=== PATIENT | male | born 1960 ===

== ENCOUNTER → 2020-06-05 10:02 | Outpatient (BNVA) | payer MEDICAID, SELFPAY | PROVIDERS: PCP Nurse Practitioner Family; Referring Provider Nurse Practitioner Family; Visit Provider Orthopaedic Surgery | DX: M54.12 Radiculopathy, cervical region (principal); M62.81 Muscle weakness (generalized) | CPT/HCPCS: 99214 ==

== ENCOUNTER 2020-09-22 13:47 | Outpatient (REF) | payer MEDICAID, SELFPAY | END 2020-09-22 13:48 | disposition home or self-care (01) | LOC: HO.LAB 13:47 | PROVIDERS: Visit Provider Internal Medicine | DX: Z20.822 Contact with and (suspected) exposure to COVID-19 (principal) | CPT/HCPCS: 36415; C9803; U0003; U0005 ==

== ENCOUNTER 2020-12-30 13:04 | Outpatient (REF) | payer MEDICAID, SELFPAY ==
--- NOTE | ~2020-12-30 | US_ITS ---
EXAMINATION: US ABDOMEN LIMITED CLINICAL INFORMATION: Mid back nontender soft tissue mass. COMPARISON: None TECHNIQUE: Real-time imaging of right back was performed. FINDINGS: There is a hypoechoic lesion in the right posterior back. The patient complains of mass. It measures 3.6 x 1.0 x 3.3 cm and most likely is a lipoma. US/US abdomen limited IMPRESSION: Likely lipoma in the right lower medial back.
== END 2020-12-30 13:05 | disposition home or self-care (01) ==
LOC: HO.US 13:04
PROVIDERS: PCP Nurse Practitioner Primary Care; Visit Provider Nurse Practitioner Primary Care
DX: R22.2 Localized swelling, mass and lump, trunk (principal)
CPT/HCPCS: 76705

== ENCOUNTER → 2021-02-26 08:56 | Outpatient (BNVA) | payer MEDICAID, SELFPAY | PROVIDERS: PCP Nurse Practitioner Primary Care; Referring Provider Nurse Practitioner Primary Care; Visit Provider Surgery | DX: D17.1 Benign lipomatous neoplasm of skin and subcutaneous tissue of trunk (principal); M54.12 Radiculopathy, cervical region; Z79.84 Long term (current) use of oral hypoglycemic drugs; Z79.899 Other long term (current) drug therapy | CPT/HCPCS: 99202 ==

== ENCOUNTER 2021-09-28 16:49 | Emergency (ER) | payer MEDICAID, SELFPAY ==
--- NOTE | ~2021-09-28 | XR_ITS ---
EXAMINATION: XR LUMBOSACRAL SPINE CLINICAL INFORMATION: Pain without trauma COMPARISON: CT abdomen pelvis 10/05/2019 TECHNIQUE: Three views of the lumbosacral spine. FINDINGS: Degenerative changes are noted in the lower thoracic spine. The lumbar vertebral bodies and posterior elements are unremarkable. The disc spaces are preserved and the vertebral alignment is normal. The paraspinal soft tissues are normal. XR/XR lumbar spine 2-3V IMPRESSION: Degenerative changes in the lower thoracic spine. The lumbar spine appears unremarkable.
--- NOTE | ~2021-09-28 | MR_ITS ---
EXAMINATION: MR LUMBAR SPINE WITHOUT CONTRAST CLINICAL INFORMATION: Right lower extremity weakness. Foot drop. Evaluate for cauda equina. COMPARISON: Lumbar spine radiographs 09/28/2019. CT abdomen and pelvis 10/05/2019. TECHNIQUE: MRI of the lumbar spine was obtained using routine sequences without contrast. FINDINGS: Alignment is normal. Vertebral body heights are preserved. No acute bone marrow signal changes. There is disc desiccation at L4-L5 and L5-S1 without substantial loss of intervertebral disc height at either of these 2 levels. The tip of the conus medullaris is located at L2. No mass effect on the conus. Visualized distal cord signal intensity is normal. At L1-L2 there is a slightly bulging disc. No canal stenosis. No mass effect on the traversing or foraminal nerve roots. At L2-L3 there is a slightly bulging disc. No canal stenosis. No mass effect on the traversing or foraminal nerve roots. At L3-L4 there is a slightly bulging disc. No canal stenosis. No mass effect on the traversing or foraminal nerve roots. At L4-L5 there is a broad shallow central protrusion superimposed upon a bulging disc. Bilateral facet degenerative change. Moderate canal stenosis. Subarticular zone narrowing causes displacement and possible compression of both traversing L5 nerve roots. Mild compression of both L4 foraminal nerve roots. At L5-S1 there is an asymmetrically bulging disc to the right. Advanced bilateral facet degenerative change. Mild canal stenosis. Asymmetric narrowing of the right subarticular zone causes displacement and possible compression of the right traversing S1 nerve roots. Moderate compression of both L5 foraminal nerve roots, greater on the right. Limited visualization of the retroperitoneal anatomy reveals no abnormal finding. Psoas and paraspinal muscle groups are symmetric. MR/MR lumbar spine wo con IMPRESSION: There is multilevel degenerative spondylosis primarily involving the lower lumbar spine. A broad shallow central protrusion in conjunction with facet degenerative change at L4-L5 causes moderate canal stenosis. Otherwise no canal compromise. There is mass effect on the traversing and foraminal segments of the nerve roots at L4-L5 and L5-S1 as described above.
[2021-09-28 16:56] VITALS: BP 141/85; PULSE 79; RESP 18; TEMP 36.7; O2SAT 98; BMI 27.3
--- NOTE | 2021-09-28 18:15 | ED.EXTPRO ---
HPI - Extremity Problem General Chief complaint: Extremity Problem Stated complaint: pain x 2days back and leg Time Seen by Provider: 09/28/21 17:51 Source: patient, family and ophthalmic technician Mode of arrival: wheelchair Limitations: language barrier History of Present Illness HPI Narrative: 61-year-old male here with reports of low back pain with radiation down the right leg for the last 2 days. Patient reports he woke with the pain. He denies any injury or trauma. He tells me the pain radiates from the back down the entire leg with associated numbness and tingling and weakness. He denies any bowel or bladder incontinence. He denies any saddle anesthesia. He denies any fevers or chills. Patient has history of diabetes and is on oral medication for this. He has no history of HIV, hepatitis, IV drug abuse. Related Data Home Medications Medication Instructions Recorded Confirmed blood-glucose meter (FreeStyle #1 ea 06/04/20 [place] [employer]) glipizide 10 mg tablet 10 mg PO DAILY 06/04/20 lancets [[employer] Lancets] MISCELLANEOUS 06/04/20 meloxicam 15 mg tablet 15 mg PO DAILY 06/04/20 metformin 500 mg tablet 500 mg PO BID 06/04/20 sitagliptin 100 mg tablet (Januvia) 100 mg PO DAILY 06/04/20 cortisone 50 mg/mL intramuscular mg IM 02/26/21 suspension Allergies Allergy/AdvReac Type Severity Reaction Status Date / Time No Known Allergies Allergy Verified 09/28/21 17:48 [No Known Allergies*] Review of Systems Review of Systems: Yes all other systems are reviewed and are negative Constitutional: Constitutional: Reports no additional constitutional complaints, Denies body ache(s), Denies chills, Denies fever(s), Denies headache(s) and Reports weakness Eyes: Eyes: Reports no additional eye complaints and Denies change in vision ENT: Reports system reviewed and no additional complaints, except as documented, Denies dizziness, Denies headache(s), Denies nasal congestion, Denies nasal discharge and Denies neck pain Cardiovascular: Cardiovascular: Reports no additional cardiovascular complaints, Denies chest pain, Denies leg edema and Denies dyspnea Respiratory: Respiratory: Reports no additional respiratory complaints, Denies cough and Denies dyspnea Gastrointestinal: Gastrointestinal: Reports no additional gastrointestinal complaints, Denies abdominal pain, Denies diarrhea, Denies nausea and Denies vomiting Genitourinary: Genitourinary: Denies urinary incontinence Musculoskeletal: Musculoskeletal: Reports no additional musculoskeletal complaints, Reports back pain, Denies arthralgias, Denies joint swelling, Denies neck pain, Reports numbness and Reports tingling Integumentary/Breasts: Skin/Breast: Reports system reviewed and no additional complaints, except as docu and Denies rash Neurologic: Reports system reviewed and no additional complaints, except as documented, Denies Abnormal speech present, Denies dizziness, Denies headache(s), Reports numbness, Reports tingling and Reports weakness PMFSH Past Medical History Attestation statement: The following information was validated with the patient. Source: old records reviewed and nursing notes reviewed Medical History Cervical radiculopathy Lipoma of back Surgical History History of hernia repair S/P excision of lipoma Family History Family History Father Diabetes Mother Hyperlipidemia Social History Social History Advance Directives: No Advance Directives Information Provided: Yes Current occupational status: unemployed Current occupation: Right Handed Physical Exam Vital Signs: Vital Signs: Last Vital Signs Temp 98.0 F 09/28/21 16:56 Pulse 79 09/28/21 16:56 Resp 18 09/28/21 16:56 BP 141/85 H 09/28/21 16:56 Pulse Ox 98 09/28/21 16:56 BMI result Body Mass Index 27.3 Const: General: cooperative, healthy appearing, comfortable and no acute distress Orientation/consciousness: patient oriented x3 Limitations: no limitations HENMT: Head: Yes normal to inspection Ears: hearing grossly normal bilaterally General nose exam: Normal external nose present Face and sinus: Yes normal facial exam Mouth: Normal oral and palatal mucosa present Throat: Yes posterior oropharynx normal Eyes: General: appearance normal, both eyes and all related structures Pupils: Equal, round and reactive pupils present Neck: Neck: Yes normal visual inspection Chest: Chest palpation & inspection: normal inspection of the chest Resp: Effort & Inspection: normal respiratory effort Auscultation: clear to auscultation bilaterally Cardio: Rate: regular rate Rhythm: regular rhythm Peripheral pulses: Peripheral pulses 2+ throughout GI: Inspection: Yes normal to inspection Palpation (GI): Soft to palpation and nontender Auscultation: normal bowel sounds Back/Spine/Pelvis: Other: Tenderness to the lumbar spine with no step off or deformities. Tenderness to the lumbar soft tissue on the right side and over the posterior SI joint with compression. There is also tenderness in the right buttocks. Patient unable to perform a straight leg raise on the right side Thoracic/Lumbar Spine: thoracic and lumbar spine normal to inspection Skin: General skin exam: no rashes or lesions noted Neuro: Other: Normal strength the left lower extremity Patient unable to lift the right leg. He is able to perform plantar fell action but is having difficulty with dorsiflexion. He tells me the sensation is intact but diminished in the right leg. General: patient oriented x3, normal sensation to monofilament and Unable to assess gait Cranial nerves: Yes CN's II-XII intact bilaterally, Yes Equal, round and reactive pupils present, Yes Bilaterally intact EOM present, Yes Nystagmus not present, Yes Normal facial strength present and Yes Midline tongue present Cognition (Neuro): normal cognition Speech: No Abnormal speech present Gait exam (Neuro): Unable to assess gait Extrem: General: Yes normal to inspection Course Course Course Narrative: 61-year-old male with a history of [id number] diabetes here with reports of 2 days of atraumatic lower back pain with radiation down the right leg with associated numbness/tingling/weakness of the leg. Patient arrives in a wheelchair as he tells me he is unable to ambulate at this time. He is unable to perform a straight leg raise with limited dorsiflexion on the right foot. Plantar flexion is normal. Sensation is normal. Patient also reports pain in right leg. No appreciable swelling, redness. Palpable distal pulses are noted. Patient is in a considerable amount of pain. Will provide analgesia. D/t motor loss, sensation change reported, severe pain will try to obtain MRI. 184-Sign out to Pavel [facility] pending MRI results, re-evaluation. MDM - Extremity (Nontraumatic) MDM Narrative Medical decision making narrative: Low concern for epidural abscess with no history of immunocompromise state, no fever, no IVDA Consider cauda equina Lumbar radiculopathy Medical Records Attestation: I reviewed the patient's medical records. Lab Data Attestation: I reviewed the patient's lab results. Discharge Plan Discharge Clinical Impression: Back pain Patient Disposition: Still a Patient Prescriptions: No Action metformin 500 mg tablet 500 mg PO BID 0RF Januvia 100 mg tablet 100 mg PO DAILY 0RF glipizide 10 mg tablet 10 mg PO DAILY 0RF lancets miscellaneous 0RF (DME) blood-glucose meter [[employer] [place] [employer]] Kit See Rx Instructions .ROUTE .MEDSUPPLY Qty: 1 0RF Rx Instructions: As directed meloxicam 15 mg tablet 15 mg PO DAILY 0RF cortisone 50 mg/mL suspension IM 0RF
[2021-09-28] MEDS: Ketorolac Tromethamine 60 MG/2 ML VIAL IM (18:35)
[2021-09-28] MEDS: diazePAM 5 MG TABLET PO (18:35)
[2021-09-28 20:16] VITALS: BP 121/72; PULSE 72; RESP 18; TEMP 36.7; O2SAT 97
[2021-09-28 22:29] VITALS: BP 141/84; PULSE 58; RESP 18; TEMP 36.6; O2SAT 99
== END 2021-09-28 23:06 | disposition home or self-care (01) ==
PROVIDERS: Emergency Provider Emergency Medicine
DX: M51.16 Intervertebral disc disorders with radiculopathy, lumbar region (principal); E11.9 Type 2 diabetes mellitus without complications
CPT/HCPCS: 72100; 72148; 96372; 99284; 99285; J1885

== ENCOUNTER 2021-11-19 10:33 | Outpatient (REF) | payer MEDICAID, SELFPAY ==
--- NOTE | ~2021-11-19 | XR_ITS ---
EXAMINATION: XR RIBS, LEFT CLINICAL INFORMATION: Pleurodynia COMPARISON: 10/18/2016 TECHNIQUE: 3 views of the left ribs were obtained. PA view of the chest. FINDINGS: Lungs are well expanded. Calcified nodular density at the periphery of the right midlung, unchanged from prior. No consolidation, pneumothorax, or pleural effusion. The cardiomediastinal silhouette and pulmonary vasculature are normal. Osseous structures are unremarkable. Ribs are intact. No fractures are identified. XR/XR ribs LT min 3V w CXR1V IMPRESSION: No acute pulmonary finding. No focal left rib abnormality.
== END 2021-11-19 10:34 | disposition home or self-care (01) ==
LOC: HO.XRAY 10:33
PROVIDERS: Absent Provider Nurse Practitioner Primary Care; PCP Nurse Practitioner Primary Care; Visit Provider Family Medicine
DX: R07.81 Pleurodynia (principal)
CPT/HCPCS: 71101

== ENCOUNTER 2022-06-07 13:56 | Emergency (ER) | payer MEDICAID, SELFPAY ==
--- NOTE | ~2022-06-07 | CT_ITS ---
EXAMINATION: CT HEAD WITHOUT CONTRAST CLINICAL INFORMATION: Subacute neural changes. Left upper extremity numbness. Buccal weakness COMPARISON: None. TECHNIQUE: Contiguous axial imaging was performed from the skull base to vertex without intravenous administration of contrast. Coronal and sagittal reformatted images are performed at the CT scanner. [This CT examination was performed using dose optimization techniques as appropriate, variously including the following: *Automated exposure control *Adjustment of mA and/or kV according to patient size (this includes techniques or standardized protocols for targeted exams where dose is matched to indication/reason for exam; i.e. extremities or head) *Use of iterative reconstruction technique] DLP: 739 mGy-cm. FINDINGS: There is no evidence of acute intracranial hemorrhage or territorial infarction. No abnormal mass-effect or midline shift is seen. Lora to white matter differentiation is well preserved. No extra-axial fluid collections are identified. The ventricles are normal in size. There is no abnormal attenuation within the brain parenchyma. There is no osseous abnormality. The mastoid air cells and visualized portions of the paranasal sinuses are well-aerated. CT/CT head/brain wo IV con IMPRESSION: No acute intracranial pathology.
--- NOTE | ~2022-06-07 | XR_ITS ---
EXAMINATION: XR CHEST CLINICAL INFORMATION: Chest pain COMPARISON: 11/19/2021 TECHNIQUE: Frontal view of the chest was obtained. FINDINGS: Aside from mildly hypoinflated lungs, no significant abnormality is noted involving the heart, lungs, mediastinum, bony thorax or soft tissues. XR/XR chest 1V IMPRESSION: Unremarkable examination.
--- NOTE | 2022-06-07 14:06 | ECG_ITS ---
Test Reason : CHEST PAIN Blood Pressure : / mmHG Vent. Rate : 071 BPM Atrial Rate : 071 BPM P-R Int : 168 ms QRS Dur : 080 ms QT Int : 370 ms P-R-T Axes : 055 -08 -03 degrees QTc Int : 402 ms Normal sinus rhythm Nonspecific T wave abnormality Abnormal ECG When compared with ECG of 18-OCT-2016 10:51, No significant change was found Referred By: Generic ED Physician Electronically Signed By:ELSY MATTA MD
[2022-06-07 14:46] VITALS: BP 144/78; PULSE 74; RESP 16; TEMP 36; O2SAT 98; BMI 29.2
[2022-06-07 14:56] LABS: MANUAL DIFF FLAG NO
[2022-06-07 14:59] LABS: Basophils Absolute Auto 0.1 X10*3/uL (0.0-0.2); Basophils Percent Auto 0.8 % (0-2); Eosinophils Absolute Auto 0.1 X10*3/uL (0.0-0.4); Eosinophils Percent Auto 1.9 % (0-4); Hematocrit 42.7 % (42.0-52.0); Hemoglobin 14.5 g/dl (14.0-18.0); Imm Gran Abs Auto 0.01 X10*3/uL (0.00-0.03); Imm Gran Pct Auto 0.2 % (0.0-0.4); Lymphocytes Absolute Auto 2.3 X10*3/uL (1.2-4.9); Lymphocytes Percent Auto 36.5 % (20-40); Mean Corpuscular Hemoglobin 28.5 pg (27.0-33.0); Mean Corpuscular Volume 84.1 fL (80.0-98.0); Mean Platelet Volume 11.2 fL (9.4-12.4); Monocytes Absolute Auto 0.6 X10*3/uL (0.1-1.2); Monocytes Percent Auto 9.4 % (2-11); Neutrophils Absolute Auto 3.2 x10*3/uL (2.0-8.3); Neutrophils Percent Auto 51.2 % (45-73); Platelet Count 209 X10*3/uL (160-400); Red Blood Count 5.08 X10*6/uL (4.60-5.80); Red Cell Distribution Width 12.4 % (11.0-16.0); White Blood Count 6.3 X10*3/uL (4.8-10.8)
[2022-06-07 15:16] LABS: Anion Gap 16 (12-20); Blood Urea Nitrogen 14 mg/dL (9-16); Calcium 9.6 mg/dL (8.4-10.2); Carbon Dioxide 24 mmol/L (22-29); Chloride 100 mmol/L (96-108); Creatinine Clr Calc Pharmacy 49.8; Estimated Glomerular Filt Rate 44; Glucose Random 413 mg/dL (60-115); Potassium 4.1 mmol/L (3.3-5.1); Sodium 136 mmol/L (135-145)
[2022-06-07 15:19] LABS: COVID-19 Test Negative (Negative); IDNOW Serial# 55D5AD1C; Troponin-I High Sensitivity 14.9 ng/L (<3.5-35.0)
--- NOTE | 2022-06-07 19:45 | ECG_ITS ---
Test Reason : CHEST PAIN Blood Pressure : / mmHG Vent. Rate : 057 BPM Atrial Rate : 057 BPM P-R Int : 184 ms QRS Dur : 082 ms QT Int : 406 ms P-R-T Axes : 020 -10 -13 degrees QTc Int : 395 ms Sinus bradycardia Nonspecific T wave abnormality Abnormal ECG When compared with ECG of 07-JUN-2022 14:44, No significant change was found Referred By: Rebecca Ko Electronically Signed By:ELSY MATTA MD
[2022-06-07 19:46] VITALS: BP 157/80; PULSE 59; RESP 18; O2SAT 99
[2022-06-07 19:50] LABS: Glucose, Whole Blood 239 mg/dL (60-115)
[2022-06-07 20:26] LABS: Troponin-I High Sensitivity 16.8 ng/L (<3.5-35.0)
--- NOTE | 2022-06-07 20:26 | ED.CHESTPAIN ---
HPI - Chest Pain General Chief Complaint: Chest Pain Stated Complaint: CHEST PAIN Time Seen by Provider: 06/07/22 20:00 Source: patient, family and deaf interpreter Mode of arrival: ambulatory History of Present Illness HPI narrative: 62-year-old male with history of diabetes presents with last known well 6 hours ago and states that he began experiencing numbness in his left upper extremity that was also associated with pain and he says that it extends all the way up his left upper extremity into the side of his neck. He denies any fever or chills denies any shortness of breath but states this is also been associated with left-sided chest pain that is burning in nature. Related Data Home Medications Medication Instructions Recorded Confirmed blood-glucose meter (FreeStyle #1 ea 06/04/20 [place] Lite kit) glipizide 10 mg tablet 10 mg PO DAILY 06/04/20 lancets [TRUEplus Lancets] miscellaneous 06/04/20 meloxicam 15 mg tablet 15 mg PO DAILY 06/04/20 metformin 500 mg tablet 500 mg PO BID 06/04/20 sitagliptin 100 mg tablet (Januvia) 100 mg PO DAILY 06/04/20 cortisone 50 mg/mL intramuscular mg IM 02/26/21 suspension Previous Rx's Medication Instructions Recorded oxycodone-acetaminophen 5 mg-325 1 tab PO TID PRN pain #9 tabs 09/28/21 mg tablet (Percocet) prednisone 20 mg tablet 40 mg PO DAILY 5 days #10 tabs 09/28/21 Allergies Allergy/AdvReac Type Severity Reaction Status Date / Time No Known Allergies Allergy Verified 09/28/21 17:48 [No Known Allergies*] Review of Systems Review of Systems: Pertinent positives and negatives as stated in HPI 10 point review of systems is otherwise negative. FORMERLY [facility], [facility] Past Medical History Source: nursing notes reviewed Medical History Cervical radiculopathy Lipoma of back Surgical History History of hernia repair S/P excision of lipoma Family History Family History Father Diabetes Mother Hyperlipidemia Social History Social History Advance Directives: No Current occupational status: unemployed Current occupation: Right Handed Physical Exam Vital Signs: Vital Signs: Last Vital Signs Temp 97.8 F 06/07/22 21:46 Pulse 55 06/07/22 21:46 Resp 15 06/07/22 21:46 BP 140/79 H 06/07/22 21:46 Pulse Ox 99 06/07/22 21:46 O2 Del Method 06/07/22 21:46 BMI result Body Mass Index 29.2 VITAL SIGNS: Reviewed. GENERAL: Well developed, well nourished, in no acute distress. HEAD: Normocephalic/atraumatic EYES: PERRLA, EOMI EARS: Ext canals without abnormality OROPHARYNX: no oral lesions noted, posterior pharynx clear LUNGS: Normal breath sounds. No adventitious sounds or accessory muscle use. SpO2<99> CARDIOVASCULAR: Regular rate and rhythm without noted murmurs ABDOMEN: Soft, non-tender, non-distended with bowel sounds. MUSCULOSKELETAL: No tenderness, deformities, or effusions noted on gross inspection. EXTREMITIES: No cyanosis, clubbing or edema. SKIN: Inspection of the skin reveals no rashes NEUROLOGIC: Alert and oriented x 4. Strength grossly intact x 4, on assessment of facial symmetry there is a difference in left/right buccal and smile appears off, cranial nerves 2-12 are grossly intact, however sensation is less on the left when compared to the right. Course Course Course Narrative: 62-year-old male with history and clinical presentation suggestive of neuro deficits that are out of the window for tPA at this time. Although patient does carry the diagnosis of cervical radiculopathy findings on left face are concerning, patient is not hypertensive but was noted to be initially hyperglycemic. Otherwise there are no gross motor/speech deficits. Review of all investigations to include CT imaging negative for acute findings other than worsening kidney function. Unable to do CT angio because of patient's creatinine level. Review of all investigations shows serial detectable but essentially flat troponins without acute changes on serial EKGs and patient received combination analgesics and on re-evaluations states that he is still feeling the burning sensation. The presentation and care your of the pain is low clinical suspicion for cardiac in nature and the associated neuropathic symptoms in the left upper extremity most consistent with his underlying radiculopathy. All results and findings discussed with him at bedside and he is otherwise discharged home in stable condition. MDM - Chest Pain Lab Data Result diagrams: 06/07/22 14:51 06/07/22 14:51 Labs: Lab Results 06/07/22 06/07/22 06/07/22 Range/Units 14:51 14:51 14:51 WBC 6.3 (4.8-10.8) X10*3/uL RBC 5.08 (4.60-5.80) X10*6/uL Hgb 14.5 (14.0-18.0) g/dl Hct 42.7 (42.0-52.0) % MCV 84.1 (80.0-98.0) fL MCH 28.5 (27.0-33.0) pg MCHC 34.0 (31.0-36.0) g/dl RDW 12.4 (11.0-16.0) % Plt Count 209 (160-400) X10*3/uL MPV 11.2 (9.4-12.4) fL Immature Gran % (Auto) 0.2 (0.0-0.4) % Neut % (Auto) 51.2 (45-73) % Lymph % (Auto) 36.5 (20-40) % [place] % (Auto) 9.4 (2-11) % Eos % (Auto) 1.9 (0-4) % Baso % (Auto) 0.8 (0-2) % Lymph # (Auto) 2.3 (1.2-4.9) X10*3/uL [place] # (Auto) 0.6 (0.1-1.2) X10*3/uL Eos # (Auto) 0.1 (0.0-0.4) X10*3/uL Baso # (Auto) 0.1 (0.0-0.2) X10*3/uL Abs Immat Gran (auto) 0.01 (0.00-0.03) X10*3/uL Absolute Neuts (auto) 3.2 (2.0-8.3) x10*3/uL Absolute Nucleated RBC 0.000 (0.0-0.012) X10*3/uL Nucleated RBC % (auto) 0.0 (0.0-0.2) /100WBC PT (10.0-13.1) SEC INR (0.9-1.1) APTT (26.0-36.4) SEC D-Dimer High Sensitivty NG/ML Sodium 136 (135-145) mmol/L Potassium 4.1 (3.3-5.1) mmol/L Chloride 100 (96-108) mmol/L Carbon Dioxide 24 (22-29) mmol/L Anion Gap 16 (12-20) BUN 14 (9-16) mg/dL Creatinine 1.60 H (0.5-1.4) mg/dL Estim Creat Clear Calc 49.8 Estimated GFR 44 POC Glucose (60-115) mg/dL Random Glucose 413 H* (60-115) mg/dL Calcium 9.6 (8.4-10.2) mg/dL Troponin I High Sens 14.9 (<3.5-35.0) ng/L Acetone, Qual Negative (Negative) COVID-19 (HERACLIO) (Negative) COVID-19 Clin Com 06/07/22 06/07/22 06/07/22 Range/Units 14:51 19:45 19:55 WBC (4.8-10.8) X10*3/uL RBC (4.60-5.80) X10*6/uL Hgb (14.0-18.0) g/dl Hct (42.0-52.0) % MCV (80.0-98.0) fL MCH (27.0-33.0) pg MCHC (31.0-36.0) g/dl RDW (11.0-16.0) % Plt Count (160-400) X10*3/uL MPV (9.4-12.4) fL Immature Gran % (Auto) (0.0-0.4) % Neut % (Auto) (45-73) % Lymph % (Auto) (20-40) % [place] % (Auto) (2-11) % Eos % (Auto) (0-4) % Baso % (Auto) (0-2) % Lymph # (Auto) (1.2-4.9) X10*3/uL [place] # (Auto) (0.1-1.2) X10*3/uL Eos # (Auto) (0.0-0.4) X10*3/uL Baso # (Auto) (0.0-0.2) X10*3/uL Abs Immat Gran (auto) (0.00-0.03) X10*3/uL Absolute Neuts (auto) (2.0-8.3) x10*3/uL Absolute Nucleated RBC (0.0-0.012) X10*3/uL Nucleated RBC % (auto) (0.0-0.2) /100WBC PT (10.0-13.1) SEC INR (0.9-1.1) APTT (26.0-36.4) SEC D-Dimer High Sensitivty NG/ML Sodium (135-145) mmol/L Potassium (3.3-5.1) mmol/L Chloride (96-108) mmol/L Carbon Dioxide (22-29) mmol/L Anion Gap (12-20) BUN (9-16) mg/dL Creatinine (0.5-1.4) mg/dL Estim Creat Clear Calc Estimated GFR POC Glucose 239 H (60-115) mg/dL Random Glucose (60-115) mg/dL Calcium (8.4-10.2) mg/dL Troponin I High Sens 16.8 (<3.5-35.0) ng/L Acetone, Qual (Negative) COVID-19 (HERACLIO) Negative (Negative) COVID-19 Clin Com See Note 06/07/22 06/07/22 Range/Units 21:22 21:22 WBC (4.8-10.8) X10*3/uL RBC (4.60-5.80) X10*6/uL Hgb (14.0-18.0) g/dl Hct (42.0-52.0) % MCV (80.0-98.0) fL MCH (27.0-33.0) pg MCHC (31.0-36.0) g/dl RDW (11.0-16.0) % Plt Count (160-400) X10*3/uL MPV (9.4-12.4) fL Immature Gran % (Auto) (0.0-0.4) % Neut % (Auto) (45-73) % Lymph % (Auto) (20-40) % [place] % (Auto) (2-11) % Eos % (Auto) (0-4) % Baso % (Auto) (0-2) % Lymph # (Auto) (1.2-4.9) X10*3/uL [place] # (Auto) (0.1-1.2) X10*3/uL Eos # (Auto) (0.0-0.4) X10*3/uL Baso # (Auto) (0.0-0.2) X10*3/uL Abs Immat Gran (auto) (0.00-0.03) X10*3/uL Absolute Neuts (auto) (2.0-8.3) x10*3/uL Absolute Nucleated RBC (0.0-0.012) X10*3/uL Nucleated RBC % (auto) (0.0-0.2) /100WBC PT 10.7 (10.0-13.1) SEC INR 0.9 (0.9-1.1) APTT 29.9 (26.0-36.4) SEC D-Dimer High Sensitivty < 150 NG/ML Sodium (135-145) mmol/L Potassium (3.3-5.1) mmol/L Chloride (96-108) mmol/L Carbon Dioxide (22-29) mmol/L Anion Gap (12-20) BUN (9-16) mg/dL Creatinine (0.5-1.4) mg/dL Estim Creat Clear Calc Estimated GFR POC Glucose (60-115) mg/dL Random Glucose (60-115) mg/dL Calcium (8.4-10.2) mg/dL Troponin I High Sens (<3.5-35.0) ng/L Acetone, Qual (Negative) COVID-19 (HERACLIO) (Negative) COVID-19 Clin Com Discharge Plan Discharge Clinical Impression: Atypical chest pain, Cervical radiculopathy, Costalchondritis, Neuropathy Patient Disposition: Home, Self-Care Instructions: Cervical Radiculopathy (ED), Costochondritis (ED), Peripheral Neuropathy (ED) Additional Instructions: 1. Reanudar todos los medicamentos caseros seg?n lo prescrito. 2. Realice un seguimiento con fernandes proveedor de atenci?n primaria llamando al consultorio por la ma?vesna para programar kemi neelam para kemi reevaluaci?n adicional para el manejo ambulatorio. Debe bill kemi discusi?n sobre la posible derivaci?n a cardiolog?a para kemi evaluaci?n adicional con prueba de esfuerzo. Regrese a la constantine de emergencias si los s?ntomas empeoran. Prescriptions: No Action prednisone 20 mg tablet 40 mg PO DAILY 5 Days Qty: 10 0RF oxycodone-acetaminophen [Percocet] 5-325 mg tablet 1 tab PO TID PRN (Reason: pain) Qty: 9 0RF Rx Instructions: side effect is drowsiness. Do not take at work or while driving. metformin 500 mg tablet 500 mg PO BID Januvia 100 mg tablet 100 mg PO DAILY glipizide 10 mg tablet 10 mg PO DAILY lancets miscellaneous (DME) blood-glucose meter [FreeStyle [place] Lite] Kit See Rx Instructions .ROUTE .MEDSUPPLY Qty: 1 Rx Instructions: As directed meloxicam 15 mg tablet 15 mg PO DAILY cortisone 50 mg/mL suspension IM Referrals: Jennifer Laboy, TECHNICAL ARTIST [Primary Care Provider] - Print Language: Liberian
--- OUTSIDE RECORDS SUMMARY | 2022-06-07 20:26 | XMS_ITS | Continuity of Care Document ---
:1960 Author Organization [address], [address] [place] [address]- Care Team Providers Name Role Phone Benoit CENTRIFUGE SEPARATOR TENDER, Delilah Parkinson Primary Care Physician Encounter [facility] – [place] Date(s): 11/12/21 - 12/12/[address], [address] [place], [place] [address] Allergies, Adverse Reactions, Alerts No Known Medication Allergies Medications (Vitamin D3) Cholecalciferol 400 LONG-TERM units/mL oral syringe 1 mL = 10 mcg, By Mouth, Daily, 0 Refills, Maintenance, 11/27/21 11:19:00 EDT, Partial fill upon patient request if the prescription is for a schedule II opioid drug. Start Date: 11/27/21 Status: Orderedatorvastatin 40 mg oral tablet 1 tablet = 40 mg, By Mouth, Daily, 0 Refills, Maintenance, 11/27/21 11:18:00 EDT, Partial fill upon patient request if the prescription is for a schedule II opioid drug. Start Date: 11/27/21 Status: OrderedFreestyle Lancets Maintenance, 11/27/21 11:18:00 EDT, Supply Start Date: 11/27/21 Status: OrderedFreestyle Test Strips Maintenance, 11/27/21 11:18:00 EDT, Supply Start Date: 11/27/21 Status: OrderedglipiZIDE 10 mg oral tablet 1 tablet = 10 mg, By Mouth, Daily, 0 Refills, Maintenance, 11/27/21 11:18:00 EDT, Partial fill upon patient request if the prescription is for a schedule II opioid drug. Start Date: 11/27/21 Status: OrderedglipiZIDE 10 mg oral tablet, extended release 1 tablet = 10 mg, By Mouth, Daily, 0 Refills, Maintenance, 11/27/21 11:19:00 EDT, Partial fill upon patient request if the prescription is for a schedule II opioid drug. Start Date: 11/27/21 Status: OrderedJanuvia By Mouth, Daily, 0 Refills, Maintenance, 11/27/21 11:19:00 EDT, Partial fill upon patient request ifthe prescription is for a schedule II opioid drug. Start Date: 11/27/21 Status: Orderedlidocaine 5% topical film Topically, Daily, 0 Refills, Maintenance, 11/27/21 11:19:00 EDT, Partial fill upon patient request if the prescription is for a schedule II opioid drug. Start Date: 11/27/21 Status: OrderedMetformin By Mouth, 0 Refills, Maintenance, 11/27/21 11:19:00 EDT, Partial fill upon patient request if the prescription is for a schedule II opioid drug. Start Date: 11/27/21 Status: OrderedTylenol Extra Strength By Mouth, Every 6 hours, 0 Refills, Maintenance, 11/27/21 11:18:00 EDT, Partial fill upon patient request if the prescription is for a schedule II opioid drug. Start Date: 11/27/21 Status: Ordered
--- OUTSIDE RECORDS SUMMARY | 2022-06-07 20:26 | XMS_ITS | Continuity of Care Document ---
:1960 Author Organization [address], [address] [place] [address]- Care Team Providers Name Role Phone Benoit LYNNE, Delilah Parkinson Primary Care Physician Encounter [facility] – [place](s): 11/30/21 - 12/30/[address], [address] [place], [place] [address] Attending Physician: Tigre Finley Admitting Physician: AdmtrTigre Referring Physician: Admtr, [id number] Allergies, Adverse Reactions, Alerts No Known Medication Allergies Medications (Vitamin D3) Cholecalciferol 400 SENIOR [facility]ARE units/mL oral syringe 1 mL = 10 [...]
[2022-06-07 20:38] LABS: Acetone, serum QL Negative (Negative)
[2022-06-07] MEDS: Acetaminophen 325 MG TABLET 975 MG PO (21:28)
[2022-06-07 21:37] LABS: INTERNATIONAL NORM RATIO 0.9 (0.9-1.1); Prothrombin Time 10.7 SEC (10.0-13.1)
[2022-06-07 21:40] LABS: Partial Thromboplastin Time 29.9 SEC (26.0-36.4)
[2022-06-07 21:46] VITALS: BP 140/79; PULSE 55; RESP 15; TEMP 36.6; O2SAT 99
[2022-06-07 21:54] LABS: D Dimer High Sensitivity < 150 NG/ML
[2022-06-07] MEDS: Ketorolac Tromethamine 15 MG/ML VIAL IM (23:55)
--- NOTE | 2022-06-08 00:09 | PC.NURSE ---
Discharge instructions reviewed with patient. Patient verbalizes understanding.
== END 2022-06-08 00:10 | disposition home or self-care (01) ==
PROVIDERS: Emergency Provider Student in an Organized Health Care Education/Training Program
DX: R07.89 Other chest pain (principal); M94.0 Chondrocostal junction syndrome [Tietze]; M54.12 Radiculopathy, cervical region; Z20.822 Contact with and (suspected) exposure to COVID-19; G62.9 Polyneuropathy, unspecified; E11.9 Type 2 diabetes mellitus without complications; Z79.84 Long term (current) use of oral hypoglycemic drugs
CPT/HCPCS: 36415; 70450; 71045; 80048; 82009; 82947; 84484; 85025; 85379; 85610; 85730; 87635; 93005; 96372; 99284; 99285; J1885

== ENCOUNTER 2023-06-28 14:17 | Emergency (ER) | payer MEDICAID, OTHER, SELFPAY ==
--- NOTE | ~2023-06-28 | XR_ITS ---
EXAMINATION: XR KNEE, RIGHT CLINICAL INFORMATION: Knee pain COMPARISON: None available. TECHNIQUE: Frontal, lateral and bilateral oblique of the right knee. FINDINGS: No acute fracture or subluxation is evident. Medial and lateral joint space narrowing and osteophyte formation are evident. Patellofemoral osteophyte formation is also suspected. There is a small suprapatellar effusion. XR/XR knee RT 2V IMPRESSION: 1. Mild tricompartmental osteoarthrosis. 2. Small suprapatellar effusion.
[2023-06-28 14:20] VITALS: BP 144/70; PULSE 87; RESP 17; TEMP 36.6; O2SAT 98; BMI 28.7
--- NOTE | 2023-06-28 14:21 | ED.GENADULT ---
HPI - General Adult General Chief complaint: Extremity Injury, Lower Stated complaint: R Foot Pain Time Seen by Provider: 06/28/23 14:59 Source: patient and certified court/medical interpreter Mode of arrival: ambulatory Limitations: language barrier History of Present Illness HPI narrative: Patient is a 63-year-old Greek-speaking male presenting to the emergency department with complaint of right posterior knee pain. Patient reports that he hit his leg on a piece of metal yesterday on a trailer hitch. States he felt a pulling sensation at the time. Took Tylenol yesterday with little relief, has not taken any [id number] medications today. Reports increased pain with full extension and flexion of knee. Denies any numbness or tingling to leg. Denies any calf pain or swelling. MD complaint: right knee pain Onset (ago): hour(s) Location: right and lower extremity Radiation: other (right posterior thigh) Severity: moderate Quality: aching Pain Consistency: constant Relieving factors: rest Exacerbating factors: movement Associated symptoms: denies other symptoms Treatments prior to arrival: other (Tylenol) Related Data Home Medications Medication Instructions Recorded Confirmed blood-glucose meter (FreeStyle #1 ea 06/04/20 [place] Lite kit) glipizide 10 mg tablet 10 mg PO DAILY 06/04/20 lancets [TRUEplus Lancets] miscellaneous 06/04/20 meloxicam 15 mg tablet 15 mg PO DAILY 06/04/20 metformin 500 mg tablet 500 mg PO BID 06/04/20 sitagliptin phosphate 100 mg 100 mg PO DAILY 06/04/20 tablet (Januvia) cortisone 50 mg/mL intramuscular mg IM 02/26/21 suspension Previous Rx's Medication Instructions Recorded oxycodone-acetaminophen 5 mg-325 1 tab PO TID PRN pain #9 tabs 09/28/21 mg tablet (Percocet) prednisone 20 mg tablet 40 mg (2 x 20 mg) PO DAILY 5 days 09/28/21 #10 tabs cyclobenzaprine 5 mg tablet 5 mg PO TID PRN muscle spasm #10 06/28/23 tabs lidocaine 5 % topical patch 1 patch topical DAILY #15 ea 06/28/23 Allergies Allergy/AdvReac Type Severity Reaction Status Date / Time No Known Allergies Allergy Verified 06/28/23 14:20 [No Known Allergies*] Review of Systems Review of Systems: As per HPI. Yes all other systems are reviewed and are negative Constitutional: Constitutional: Reports as per HPI FORMERLY [facility] Past Medical History Medical History Cervical radiculopathy Lipoma of back Surgical History History of hernia repair S/P excision of lipoma Family History Family History Father Diabetes Mother Hyperlipidemia Social History Social History Patient Tobacco Use Status: Never used Tobacco Advance Directives: No Advance Directives Information Provided: No Current occupational status: unemployed Current occupation: Right Handed Physical Exam ED Vital Signs: Vital Signs - 24 hr 06/28/23 14:20 Temperature 98 F Pulse Rate 87 Respiratory Rate 17 Blood Pressure 144/70 H Pulse Oximetry 98 Oxygen Delivery Method Room Air BMI result Body Mass Index 28.7 Vital signs have been reviewed and appear to be correct. Blood pressure elevated. Heart rate normal. Respiratory rate normal. Temperature normal. Oxygen saturation normal. Const General: cooperative, healthy appearing and no acute distress Orientation/consciousness: oriented to person, oriented to place, oriented to time and patient oriented x3 Limitations: no limitations HENMT Head: Yes normocephalic and Yes atraumatic Ears: external ears normal General nose exam: Normal external nose present Face and sinus: Yes face symmetric Mouth: oropharynx normal and moist mucous membranes Throat: Yes uvula midline Eyes Pupils: Equal, round and reactive pupils present Neck Neck: Yes normal visual inspection and Yes supple Resp Effort & Inspection: normal respiratory effort and able to speak in complete sentences Auscultation: clear to auscultation bilaterally Cardio Rate: regular rate Rhythm: regular rhythm Heart sounds: S1 normal heart sound present and S2 normal heart sound present GI Palpation (GI): Soft to palpation and nontender Auscultation: normoactive bowel sounds General: Yes no CVA tenderness Back/Spine/Pelvis Back: no CVA tenderness Skin General skin exam: elasticity normal and turgor normal Neuro General: oriented to person, oriented to place, oriented to time, patient oriented x3, moves all extremities, no focal motor deficits and CN's II-XI intact bilaterally Cranial nerves: Yes Equal, round and reactive pupils present Cognition (Neuro): normal cognition Extrem General: Yes full ROM, Yes no pedal edema and Yes no calf tenderness Right lower extremity: knee Details: tenderness Location: of the popliteal fossa and of the medial joint line, normal ROM and knee ligament exam normal; no ecchymosis and no unusual warmth and foot Details: vascular exam Details: dorsalis pedis pulse present and posterior tibial pulse present Psych Mental Status: mental status grossly normal Affect: normal affect Thought process: Normal thought process present Course Course Course Narrative: This is an RME: Additional HPI, ROS, PE not included below will be deferred to primary provider. 63 yo M presents w/ right knee pain sp hitting his knee on a trailer. Plan imaging Medical Decision Making Medical Decision Making [facility] Narrative: Patient is a 63-year-old Greek-speaking male presenting to the emergency department with complaint of right posterior knee pain. On exam patient is awake, A+Ox3, BP mildly elevated VS otherwise WNL, afebrile, normal neurological exam without focal deficits, physical exam findings as above. Given reported symptoms and physical exam findings, initial differential includes contusion, fracture, muscle strain. X-ray notable for osteoarthrosis, small suprapatellar effusion, no acute fracture. My interpretation is in agreement with the radiologist's interpretation. Results discussed with patient all questions answered. Will prescribe cyclobenzaprine, topical lidocaine patches, advise patient to alternate Tylenol and ibuprofen. Will refer to orthopedics for further evaluation and management. Instructed patient to follow-up with PCP as well. Return precautions discussed at bedside. Patient verbalized understanding of and agreement with plan. Differential Diagnosis Differential Diagnoses: The differential diagnosis associated with the presentation includes As per MDM. Independent Interpretation I performed an independent interpretation of an: Plain X-Ray Interpretation: No acute fracture right knee Radiology Impression Discussion of test interpretation with radiology: I have reviewed the radiologist's reading. Radiologist Impression: XR/XR knee RT 2V IMPRESSION: 1. Mild tricompartmental osteoarthrosis. 2. Small suprapatellar effusion. External Record Review External record reviewed: Inpatient record, Office record and Outpatient record Prescription Management I considered prescription management with: Pain Medication and Other Discharge Plan Discharge Clinical Impression: Acute pain of right knee Patient Disposition: Home, Self-Care Instructions: Knee Pain (ED) Additional Instructions: You have been evaluated in the emergency department today for knee pain. your evaluation did not find evidence of medical conditions requiring emergent intervention at this time. We have provided an SHERRY wrap for you to use while your knee heals. Please rest, ice, and elevate your knee, and resume normal activities as tolerated. We recommend you take 600mg ibuprofen every 6 hours or 650mg Tylenol every 6 hours as needed for pain. If needed you can alternate these medications as they take 1 medication every 3 hours. For instance at noon take ibuprofen, then at 3:00 p.m. take Tylenol, then at 6:00 p.m. take ibuprofen. Please schedule an appointment for follow-up with your primary care provider this week. You are being referred to Orthopedics for further evaluation and management of your symptoms, please call the office to schedule an appointment. Return to the emergency department if you experience worsening pain, numbness, tingling, change of color in your leg, or any other concerning symptoms. Prescriptions: New cyclobenzaprine 5 mg tablet 5 mg PO TID PRN (Reason: muscle spasm) Qty: 10 0RF lidocaine 5 % adhesive patch,medicated 1 patch topical DAILY Qty: 15 0RF Rx Instructions: leave on most painful area for up to 12 hrs No Action prednisone 20 mg tablet 40 mg PO DAILY 5 Days Qty: 10 0RF oxycodone-acetaminophen [Percocet] 5-325 mg tablet 1 tab PO TID PRN (Reason: pain) Qty: 9 0RF Rx Instructions: side effect is drowsiness. Do not take at work or while driving. metformin 500 mg tablet 500 mg PO BID Januvia 100 mg tablet 100 mg PO DAILY glipizide 10 mg tablet 10 mg PO DAILY lancets miscellaneous (DME) blood-glucose meter [FreeStyle [place] Lite] Kit See Rx Instructions .ROUTE .MEDSUPPLY Qty: 1 Rx Instructions: As directed meloxicam 15 mg tablet 15 mg PO DAILY cortisone 50 mg/mL suspension IM Referrals: [facility] [Provider Group] Stand Alone Forms: Work/School Release
== END 2023-06-28 16:32 | disposition home or self-care (01) ==
PROVIDERS: Emergency Provider Emergency Medicine
DX: M25.561 Pain in right knee (principal)
CPT/HCPCS: 73560; 99282; 99283

== ENCOUNTER 2023-07-01 09:42 | Outpatient (REF) | payer OTHER, SELFPAY ==
--- NOTE | ~2023-07-01 | XR_ITS ---
EXAMINATION: XR KNEE AP STANDING XR KNEE, RIGHT CLINICAL INFORMATION: Right knee pain. COMPARISON: Radiographs dated 06/28/2023. TECHNIQUE: AP bilateral standing view of the knees was obtained. An axial view of the right knee was obtained. FINDINGS: Bony alignment and mineralization are normal. The lateral and medial joint space compartments of the right knee are well-maintained and show mild peripheral osteophyte formation. There is marked narrowing of the patellofemoral compartment laterally, with peripheral osteophyte formation of the lateral articular surface of the patella. The lateral and medial joint space compartment of the left knee are well-maintained and show mild peripheral osteophyte formation. No fracture or dislocation is seen. There is no significant varus or valgus configuration. XR/XR knee standing BI IMPRESSION: 1. There is tricompartment osteoarthritic change of the right knee, most pronounced of the patellofemoral compartment, where it is moderately severe. 2. There is mild osteoarthritic change of the lateral and medial joint space compartments of the left knee. 3. There is no significant varus or valgus configuration.
--- NOTE | ~2023-07-01 | XR_ITS ---
EXAMINATION: XR KNEE AP STANDING XR KNEE, RIGHT CLINICAL INFORMATION: Right knee pain. COMPARISON: Radiographs dated 06/28/2023. TECHNIQUE: AP bilateral standing view of the knees was obtained. An axial view of the right knee was obtained. FINDINGS: Bony alignment and mineralization are normal. The lateral and medial joint space compartments of the right knee are well-maintained and show mild peripheral osteophyte formation. There is marked narrowing of the patellofemoral compartment laterally, with peripheral osteophyte formation of the lateral articular surface of the patella. The lateral and medial joint space compartment of the left knee are well-maintained and show mild peripheral osteophyte formation. No fracture or dislocation is seen. There is no significant varus or valgus configuration. XR/XR knee RT 1V IMPRESSION: 1. There is tricompartment osteoarthritic change of the right knee, most pronounced of the patellofemoral compartment, where it is moderately severe. 2. There is mild osteoarthritic change of the lateral and medial joint space compartments of the left knee. 3. There is no significant varus or valgus configuration.
== END 2023-07-01 09:43 | disposition home or self-care (01) ==
LOC: HO.HOSX 09:42
PROVIDERS: Visit Provider Physician Assistant
DX: M25.561 Pain in right knee (principal); M23.91 Unspecified internal derangement of right knee; M25.562 Pain in left knee
CPT/HCPCS: 73560; 73565; 99202

== ENCOUNTER 2023-07-01 11:06 | Outpatient (AMB) | payer OTHER, SELFPAY ==
[2023-07-01 11:34] VITALS: BMI 28.7
--- NOTE | 2023-07-01 11:34 | MHC.OFFVIS ---
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 Patient reports after he put gas in a araceli he hit the corner of the trailer a the anterior aspect of right knee. He presented to [facility] the following day where xrays were taken. Currently he has constant pain at the medial, lateral and posterior aspect of knee, swelling and unable to apply any weight to his right leg. Finds very little relief with ibuprofen and topical cream. Found no relief with cyclobenzaprine 5mg or lidocaine patches. 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 He states after this happened, he did not have severe pain at the moment, but the next day his pain increased and he had to leave work early due to the pain. He was seen in the ED , xrays were obtained and he was referred to our office for ortho eval. Prior to the injury, he denies pain in the right knee. Since the incident, he has difficulty with prolonged walking, bending, straightening the knee. He states since the injury, he is not able to fully weight bear. [facility] Medical History Cervical radiculopathy Lipoma of back Surgical History History of hernia repair S/P excision of lipoma Family History Father Diabetes Mother Hyperlipidemia Social History Patient Tobacco Use Status: Never used Tobacco Current occupational status: unemployed Current occupation: Right Handed Review of Systems Const All systems reviewed & are unremarkable except as noted in HPI and below Physical Exam Vital Signs: BMI result Body Mass Index 28.7 Const General: cooperative and no acute distress Orientation/consciousness: patient oriented x3 Resp Effort & Inspection: normal respiratory effort and able to speak in complete sentences Cardio Peripheral pulses: Peripheral pulses 2+ throughout Neuro General: patient oriented x3 Extrem Other: Left knee skin intact, no erythema or joint effusion. Tenderness along the lateral joint line. Significant guarding on exam with ROM . Negative steinmans. No ligamentous laxity. NVI. Results Reviewed Results Reviewed: Xrays were obtained in the office today and personally reviewed by me of the left knee show severe oa with avulsion type ossicle along the anterior portion of the patella. Assessment & Plan Assessment & Plan (1) Internal derangement of right knee: Code(s): M23.91 - Unspecified internal derangement of right knee (2) Osteoarthritis of left knee: Code(s): M17.12 - Unilateral primary osteoarthritis, left knee Qualifiers: Osteoarthritis type: primary Qualified Code(s): M17.12 - Unilateral primary osteoarthritis, left knee Plan: I encouraged wbat and to work on ROM to prevent stiffness He was fit for a genumed knee brace and an MRI of the left knee was ordered to further evaluate the etiology of his pain. He will remain out of work until I see him back for the results. Orders: Orders XR knee standing BI Today M25.561 - Pain in right knee, M25.562 - Pain in left knee MR knee RT wo con Today M23.91 - Unspecified internal derangement of right knee XR knee RT 1V Today M25.561 - Pain in right knee Medications: New celecoxib (Celebrex) 200 mg PO BID 30 days 60 caps 3RF Coding Level of Care Code New Pt Level 3 (07223) Diagnoses Internal derangement of right knee M23.91 Primary osteoarthritis of left knee M17.12 Osteoarthritis type: primary
== END 2023-07-01 12:06 | disposition home or self-care (01) ==
PROVIDERS: Visit Provider Physician Assistant
DX: M23.91 Unspecified internal derangement of right knee (principal); M17.12 Unilateral primary osteoarthritis, left knee
CPT/HCPCS: 99203

== ENCOUNTER 2023-07-05 11:49 | Outpatient (REF) | payer OTHER, SELFPAY ==
--- NOTE | ~2023-07-05 | MR_ITS ---
EXAMINATION: MR KNEE WITHOUT CONTRAST, RIGHT CLINICAL INFORMATION: Internal derangement. COMPARISON: X-ray 07/01/2023. TECHNIQUE: MRI of the knee without contrast was performed using routine sequences on a high-field scanner. FINDINGS: MENISCI: Medial Meniscus: Intact. Lateral Meniscus: Intact. LIGAMENTS: Cruciate: Mild T2 signal in the posterior fibers of the ACL. The ACL otherwise demonstrates normal orientation without discontinuity. These findings may reflect mucoid degeneration or sprain. Intact PCL. Collateral: There is soft tissue swelling and subcutaneous tenderness edema along the lateral aspect of the knee, including overlying the LCL complex. There is edema in the soft tissues posterolateral to the femoral condyle. The biceps femoris tendon appears intact. Mild edema associated with the fibular collateral ligament suggesting sprain injury. There is edema overlying the iliotibial band, without focal tear or disruption seen. Intact MCL. Mild popliteus muscle strain. Minimal T2 signal changes in the distal popliteus tendon may reflect tendinosis or strain. EXTENSOR MECHANISM: Mild quadriceps tendinosis. No focal tear is seen. Patellar tendon is intact. ARTICULAR CARTILAGE/BONE: Patellofemoral Compartment: Patellofemoral alignment is maintained. Prominent marginal osteophytes, joint space loss. There is nonuniform cartilage loss, with more prominent areas of high-grade/full-thickness cartilage loss in the central and lateral articulation involving patella and the trochlea, with subchondral cyst/edema. Medial Compartment: Marginal osteophytes. Mild joint space loss. Mild cartilage thinning in the weightbearing compartment. Lateral Compartment: Marginal osteophytes. No focal cartilage loss. No focal fracture seen. JOINT FLUID AND BURSAE: Small effusion. No significant Reina's cyst. There is prominent soft tissue swelling and subcutaneous edema in the lateral aspect of the knee. There is edema in the underlying, lateral patellofemoral ligament/capsule. This inferiorly extends beyond the [id number]. This likely is posttraumatic in nature. No organized fluid collections are seen. Edema in the proximal lateral gastrocnemius muscle, probable strain. MR/MR knee RT wo con IMPRESSION: 1. Menisci appear intact without definitive tear. 2. ACL findings may reflect mucoid degeneration or sprain. 3. Prominent soft tissue swelling and subcutaneous edema in the lateral aspect of the knee, edema in the lateral patellofemoral ligament, capsule. This likely is posttraumatic in nature. No organized fluid collection is seen. 4. Mild fibular collateral ligament sprain. Edema overlying the iliotibial band without evidence of focal tear. Mild popliteus muscle strain. Mild popliteus tendinosis/strain. 5. Moderate-severe patellofemoral arthritis. Mild medial and lateral compartment arthritis. 6. Small effusion. 7. Proximal, lateral gastrocnemius muscle edema, probable strain.
== END 2023-07-05 11:50 | disposition home or self-care (01) ==
LOC: HO.MRI 11:49
PROVIDERS: Visit Provider Physician Assistant
DX: M23.91 Unspecified internal derangement of right knee (principal)
CPT/HCPCS: 73721

== ENCOUNTER 2023-07-15 10:17 | Outpatient (AMB) | payer OTHER, SELFPAY ==
--- NOTE | 2023-07-15 10:17 | A.OFFVIS_ITS ---
Intake Intake Visit Reasons: Tele- Rt Knee pain MRI Review Intake Note: Rishabh tay 63 year old male scheduled for a telehealth appointment for an MRI review of right knee. Allergies No Known Allergies [No Known Allergies*] Allergy (Verified 07/15/23 10:18) HPI Tele- Rt Knee pain MRI Review HPI Details 63 yo male presents for MRI review right knee telehealth. He c/o pain mostly behind the knee. He states there is some pain and numbness along the lateral edge of the knee. He feels some sensation of instability of the knee and he has increased pain with going up the stairs. [facility], [facility] Medical History Cervical radiculopathy Lipoma of back Surgical History History of hernia repair S/P excision of lipoma Family History Father Diabetes Mother Hyperlipidemia Social History Patient Tobacco Use Status: Never used Tobacco Current occupational status: unemployed Current occupation: Right Handed Physical Exam Resp Effort & Inspection: normal respiratory effort and able to speak in complete sentences Results Reviewed Results Reviewed: MRI Right knee 07/05/23 IMPRESSION: 1. Menisci appear intact without definitive tear. 2. ACL findings may reflect mucoid degeneration or sprain. 3. Prominent soft tissue swelling and subcutaneous edema in the lateral aspect of the knee, edema in the lateral patellofemoral ligament, capsule. This likely is posttraumatic in nature. No organized fluid collection is seen. 4. Mild fibular collateral ligament sprain. Edema overlying the iliotibial band without evidence of focal tear. Mild popliteus muscle strain. Mild popliteus tendinosis/strain. 5. Moderate-severe patellofemoral arthritis. Mild medial and lateral compartment arthritis. 6. Small effusion. 7. Proximal, lateral gastrocnemius muscle edema, probable strain. Assessment & Plan Assessment & Plan (1) Patellofemoral arthritis of right knee: Code(s): M17.11 - Unilateral primary osteoarthritis, right knee Plan: We discussed the MRI findings and options available. I recommend he continue with his knee brace. We will order PT for the right knee and he will see me in 1 week for cortisone injection. He is content with this plan. (2) Right knee sprain: Code(s): S83.91XA - Sprain of unspecified site of right knee, initial encounter Qualifiers: Encounter type: initial encounter Involved ligament of knee: unspecified ligament Qualified Code(s): S83.91XA - Sprain of unspecified site of right knee, initial encounter Plan: Orders: Orders PT Evaluation and Treatment Today M17.11 - Unilateral primary osteoarthritis, right knee, S83.91XA - Sprain of unspecified site of right knee, initial encounter Telehealth Telehealth Location of provider rendering services: practice address Location of patient: address on file Patient Identification confirmed using: Name, : Yes Telehealth method: voice only Patient verbally consented to treatment: Yes Patient verbally consented to billing insurance company: Yes Patient informed of any privacy concerns related to visit: Yes Coding Level of Care Code Tele Est Pt Level 3 (97516) Diagnoses Patellofemoral arthritis of right knee M17.11 Sprain of right knee, unspecified ligament, initial encounter S83.91XA Encounter type: initial encounter Involved ligament of knee: unspecified ligament
== END 2023-07-15 10:25 | disposition home or self-care (01) ==
LOC: HO.HOS 10:17
PROVIDERS: Visit Provider Physician Assistant
DX: M17.11 Unilateral primary osteoarthritis, right knee (principal); S83.91XA Sprain of unspecified site of right knee, initial encounter
CPT/HCPCS: 99213

== ENCOUNTER → 2023-07-15 10:17 | Outpatient (BNVA) | payer OTHER, SELFPAY | PROVIDERS: Visit Provider Physician Assistant ==

== ENCOUNTER 2023-07-22 09:54 | Outpatient (AMB) | payer OTHER, SELFPAY ==
--- NOTE | 2023-07-22 09:57 | A.OFFVIS_ITS ---
Intake Vital Signs 07/22/23 10:00 Height 5 ft 7 in Weight 183 lb BMI 28.7 Intake Visit Reasons: ov- right knee injection Intake Note: Rishabh tay 63 year old male presents today for a right knee cortisone injection. Allergies No Known Allergies [No Known Allergies*] Allergy (Verified 07/22/23 10:00) HPI ov- right knee injection HPI Details 63-year-old male who returns to the [facility] today with an educational sign language interpreter for a right knee injection. He continues to have pain in his right knee which makes him unable to bend his knee. He was referred physical therapy but did not start as no one reached out to him. [facility] Medical History Cervical radiculopathy Lipoma of back Surgical History History of hernia repair S/P excision of lipoma Family History Father Diabetes Mother Hyperlipidemia Social History Patient Tobacco Use Status: Never used Tobacco Current occupational status: unemployed Current occupation: Right Handed Review of Systems Const All systems reviewed & are unremarkable except as noted in HPI and below Physical Exam Vital Signs: BMI result Body Mass Index 28.7 Extrem Other: Right knee: Skin intact, no erythema or joint effusion. Tenderness along the lateral joint line. Full ROM with crepitus. Negative Jose?s. No ligamentous laxity. NVI. Office Procedures Joint Injection/Drain Joint Injection/Drain Primary Site: right knee Prep: site was prepped using aseptic technique, ethochloride spray was applied and injection warnings given Injected: 40 mg of, DepoMedrol, with 8 mL of, 1% plain lidocaine and in the joint Approach Used: anterolateral Procedure: The patient tolerated the procedure well and there was some relief with the local anesthesia Coding 26849 - Glenohumeral/Tronchanteric Bursa/Intraarticular Procedure code (CPT) selection complete Assessment & Plan Assessment & Plan (1) Patellofemoral arthritis of right knee: Code(s): M17.11 - Unilateral primary osteoarthritis, right knee (2) Right knee sprain: Code(s): S83.91XA - Sprain of unspecified site of right knee, initial encounter Qualifiers: Encounter type: initial encounter Involved ligament of knee: unspecified ligament Qualified Code(s): S83.91XA - Sprain of unspecified site of right knee, initial encounter Plan We discussed options today which include steroid injection. They did consent to move forward with the right knee injection, which was tolerated well. I recommended rest, ice and elevation and OTC anti-inflammatories PRN for discomfort. If symptoms persist or worsens over the next 6-8 weeks, patient will contact the office, otherwise follow-up as needed. We also discussed their diabetes and the effect the steroid can have on thier blood glucose levels; therefore, they will continue to monitor these very closely over the next 72 hours Patient Instructions: Scribed for Jim Ray PA-C, by Anibal Valencia expert medical writer, on 07/22/2023 at 10:00 AM EST. IJim PA-C, have personally reviewed and agree with the information entered by the scribe. Coding Level of Care Code Est Pt Level 3 (68925) Diagnoses Patellofemoral arthritis of right knee M17.11 Sprain of right knee, unspecified ligament, initial encounter S83.91XA Encounter type: initial encounter Involved ligament of knee: unspecified ligament CPT Codes Coding - Joint 7: 00822 - Glenohumeral/Tronchanteric Bursa/Intraarticular ([id number])
[2023-07-22 10:00] VITALS: BMI 28.7
== END 2023-07-22 10:46 | disposition home or self-care (01) ==
PROVIDERS: Visit Provider Physician Assistant
DX: M17.11 Unilateral primary osteoarthritis, right knee (principal); S83.91XA Sprain of unspecified site of right knee, initial encounter
CPT/HCPCS: 20610

== ENCOUNTER → 2023-07-22 09:54 | Outpatient (BNVA) | payer OTHER, SELFPAY | PROVIDERS: Visit Provider Physician Assistant | DX: M17.11 Unilateral primary osteoarthritis, right knee (principal); S83.91XA Sprain of unspecified site of right knee, initial encounter | CPT/HCPCS: 20610; J1020 ==

== ENCOUNTER 2023-08-31 11:00 | Outpatient (RCR) | payer OTHER, MEDICAID, SELFPAY ==
--- NOTE | 2023-07-25 17:02 | MHC.PT.EP ---
[facility] [place] [facility] [place] [facility] [place] [facility] [address] Ellie Hicks [address] [phone] F: [phone] F: [phone] F: [phone] F: [phone] Physical Therapy Plan of Care Date of Evaluation: 07/25/23 Date of Surgery: 06/27/23 Diagnosis: R knee sprain (RL) Assessment: pt is a 63 y/o male presenting to physical therapy w/ referring diagnosis of sprain of unspecified site of right knee, initial encounter; unilateral primary osteoarthritis, right knee. pt is significantly self-limiting at this time. He had fair compliance w/ instructions from this therapist; however, will need significant encouragement to participate and education regarding anatomy/healing process. Impairments include pain, decreased range of motion, decreased strength, impaired functional mobility, impaired postural awareness, and altered ambulation mechanics. pt is a fair candidate for skilled PT due to age, potential remediation of impairments, typical disease/condition progression and prognosis, comorbidities, and motivation. pt would benefit from skilled PT intervention to provide a tailored strengthening and stretching exercise program, functional training, gait training, postural re-training, neuromuscular re-education, modalities as needed for pain, equipment safety demonstration. Frequency and Duration: The patient will be seen 2x/wk for 3 wks Short Term Goals: pt will be I w/ HEP to promote self-management of condition. pt will improve R knee flexion to 90* to promote improved tolerance for sitting posture. pt will perform sit<>stand transfer w/o UEs to promote ease in transfers. Career Discovery Teacher Goals: pt will report a statistically significant improvement in self-reported outcome measure, LEFI, to promote return to PLOF. pt will improve R knee strength to at least 4+/5 to promote ease in navigation 12 stairs w/ reciprocal pattern. pt will ambulate >2600' w/ LRAD w/ less than <2/10 R knee pain to promote return to community level ambulation. Treatment Plan: Modalities to reduce pain, spasms and effusion. Manual therapy to restore motion and function. Therapeutic exercise to improve strength and flexibility. Neuromuscular re-education for posture and balance. Therapeutic activities to return to functional activities of daily living. Electronically signed by: Jess Berman PT, DPT Please sign and return to therapist. Thank you for your referral.
--- NOTE | 2023-09-05 10:32 | MHC.PT.DC ---
[facility] [place] [facility] [place] Office [place] Office [address] Ellie Hicks [address] [facility] [phone] F: [phone] F: [phone] F: [phone] F: [phone] Physical Therapy Discharge Report Diagnosis: R knee sprain (RL) Date of Surgery: 06/27/23 Date of Evaluation: 07/25/23 Date of Discharge: 09/05/23 Treatments to Date: 12 Cancellations to Date: 1 No Shows to Date: 0 Discharge Status: Improved Function Independent with HEP Discharge Summary: The patient overall has been reporting little to no knee pain. He has been complaining of intermittent hamstring discomfort that improves with both hamstring stretch and sciatic nerve glides. He has been working on a progressive strengthening program with lifting mechanics. He is independent with his home exercise program. The patient is discharged to his home exercise program at this time. Electronically signed by: Jess Berman PT, DPT Please sign and return to therapist. Thank you for your referral.
== END 2023-09-05 10:32 | disposition home or self-care (01) ==
LOC: HO.PT 11:00
PROVIDERS: Visit Provider Physician Assistant
DX: S83.91XD Sprain of unspecified site of right knee, subsequent encounter (principal); M17.11 Unilateral primary osteoarthritis, right knee
CPT/HCPCS: 97110; 97162; 97164; 97530

== ENCOUNTER 2023-09-12 12:27 | Outpatient (AMB) | payer OTHER, MEDICAID, SELFPAY ==
[2023-09-12 12:30] VITALS: BMI 28.7
--- NOTE | 2023-09-12 12:30 | A.OFFVIS_ITS ---
Intake Vital Signs 09/12/23 12:30 Height 5 ft 7 in Weight 183 lb BMI 28.7 Intake Visit Reasons: ov- right knee pain Intake Note: Rishabh tay 63 year old male presents today for a follow up of right knee s/p injection on 07/22/23. Patient reports injection really helped him however he is now having radiating pain from buttocks down his leg that started about 20 days ago while doing P.T for his knee. States he has hx of lumbar paincin his let side that also radiated down his leg. He is aware its too soon for a repeat injection. Allergies No Known Allergies [No Known Allergies*] Allergy (Verified 09/12/23 12:41) HPI ov- right knee pain HPI Details 63-year-old male who returns to the [facility] today with an wildlife protector for a follow-up of right knee pain. He had his last injection on 07/22/23 which provided him relief until recently. He currently states he has pain in his right knee which radiates from his buttock down to hie leg which started about 20 days ago while doing physical therapy for his knee. He states he recalls being in PT performing a lateral leg move and that is when he felt the pain in low back. He also experiences difficulty with bending his knee completely and stiffness with moving his knee back which originates within the hamstring. ssciatica left side which also radiates down to his leg. He works in [employer] which involves a lot of strength and heavy lifting activities with the hand. [facility] Medical History Cervical radiculopathy Lipoma of back Surgical History History of hernia repair S/P excision of lipoma Family History Father Diabetes Mother Hyperlipidemia Social History Patient Tobacco Use Status: Never used Tobacco Current occupational status: unemployed Current occupation: Right Handed Review of Systems Const All systems reviewed & are unremarkable except as noted in HPI and below Physical Exam Vital Signs: BMI result Body Mass Index 28.7 Extrem Other: Right knee: Skin intact, no erythema or joint effusion. Tenderness along the lateral joint line. Full ROM with crepitus. Negative Jose?s. No ligamentous laxity. NVI. Positive SLR Assessment & Plan Assessment & Plan (1) Patellofemoral arthritis of right knee: Code(s): M17.11 - Unilateral primary osteoarthritis, right knee (2) Right knee sprain: Code(s): S83.91XA - Sprain of unspecified site of right knee, initial encounter Qualifiers: Encounter type: initial encounter Involved ligament of knee: unspecified ligament Qualified Code(s): S83.91XA - Sprain of unspecified site of right knee, initial encounter Plan He will continue with his current home exercises program. I stressed the importance of working on core and lumbar stabilization. I did give him a referral with Dr. Cha, our osteopathic neurologist to further evaluate the lumbar spine to determine other treatment options. He will continue with his current work restrictions until he is evaluated by Dr. Cha. Patient Instructions: Scribed for Jim Ray PA-C, by Anibal Valencia medical laboratory technician, on 09/12/2023 at 12:30 PM Jim ATN PA-C, have personally reviewed and agree with the information entered by the scribe. Coding Level of Care Code Est Pt Level 3 (15003) Diagnoses Patellofemoral arthritis of right knee M17.11 Sprain of right knee, unspecified ligament, initial encounter S83.91XA Encounter type: initial encounter Involved ligament of knee: unspecified ligament
== END 2023-09-12 13:21 | disposition home or self-care (01) ==
PROVIDERS: Visit Provider Physician Assistant
DX: M17.11 Unilateral primary osteoarthritis, right knee (principal); S83.91XA Sprain of unspecified site of right knee, initial encounter
CPT/HCPCS: 99213

== ENCOUNTER → 2023-09-12 12:27 | Outpatient (BNVA) | payer OTHER, MEDICAID, SELFPAY | PROVIDERS: Visit Provider Physician Assistant | DX: M17.11 Unilateral primary osteoarthritis, right knee (principal); S83.91XA Sprain of unspecified site of right knee, initial encounter | CPT/HCPCS: 99212 ==

== ENCOUNTER 2023-10-20 10:02 | Outpatient (AMB) | payer OTHER, MEDICAID, SELFPAY ==
--- NOTE | 2023-10-20 10:04 | A.OFFVIS_ITS ---
Intake Vital Signs 10/20/23 10:06 Height 5 ft 7 in Weight 183 lb BMI 28.7 Intake Visit Reasons: Newprob-low back pain/sciatica Intake Note: Rishabh is a 63 year old male who presents today for a new problem visit with complaints of lower back that radiates down the left leg. Patient states that this pain onset while doing physical therapy. Last seen with Lukas Elena for right knee pain,also gave lumbar exercise to do and suggested to follow up with Dr. Cha for further evauation. Allergies No Known Allergies [No Known Allergies*] Allergy (Verified 10/20/23 10:06) Medication List - Last Reconciled 10/20/23 by Sary Garcia MD atorvastatin 40 mg PO BEDTIME blood-glucose meter (FreeStyle Sod Lite kit) As directed glipizide 10 mg PO DAILY lancets (TRUEplus Lancets) miscellaneous lidocaine 5% 1 patch topical DAILY metformin 500 mg PO BID metformin 1,000 mg PO sitagliptin phosphate (Januvia) 100 mg PO DAILY HPI HPI Comments History of Present Illness Details Here with daughter. Romanian speaking, seen with music journalist. Chronic back pain, at least 5 years. Denies inciting injuries. Denies seeing other specialist before. He did have lumbar MRI in 2021. Daughter says he had injections for neck and shoulder in the past, but not on lower back. Points to right side, down to leg and to toes. Admits chronic numbness on right foot. Daughter says he had EMG few years ago at [facility] but cannot remember results. Results are not on EMR. Per patient back pain getting worse since knee injury. Daughter says last June, he had knee injury which has made the back pain worse. 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 He's been going to PT for the knee pain. Knee injection done by ortho but not much relief. MRI done: Prominent soft tissue swelling and subcutaneous edema in the lateral aspect of the knee, edema in the lateral patellofemoral ligament, capsule. This likely is posttraumatic in nature. No organized fluid collection is seen. Mild fibular collateral ligament sprain. Edema overlying the iliotibial band without evidence of focal tear. Mild popliteus muscle strain. Mild popliteus tendinosis/strain. [facility] Medical History (Updated 10/20/23 @ 10:55 by Sary Garcia MD) Popliteus tendinitis of right lower extremity Sprain of lateral collateral ligament of right knee Lumbar degenerative disc disease Lipoma of back Cervical radiculopathy Surgical History History of hernia repair S/P excision of lipoma Family History Father Diabetes Mother Hyperlipidemia Social History Patient Tobacco Use Status: Never used Tobacco Current occupational status: unemployed Current occupation: Right Handed Review of Systems Const All systems reviewed & are unremarkable except as noted in HPI and below Physical Exam Vital Signs: BMI result Body Mass Index 28.7 Constitutional: Patient appears to be in no acute distress, well nourished and well developed. Patient was appropriately conversant and oriented. Good historian. MSK: No specific abnormalities found on inspection of the spine and all extremities. Tender on right lumbar paraspinals. No tender on right SI or GT. Lumbar ROM was full. Straight-leg raising test negative. FABERE test negative. Limied right knee ROM due to pain. Tender right lateral knee and popliteal. No ligamentous laxity or crepitant. No increased effusion. No joint line tenderness. No tenderness over patella. Patellar grind test is negative. Anterior drawer test is negative. Chuck test is negative. Posterior drawer test is negative. Valgus stress test right knee positive. Varus stress tests are negative. Stacy test is negative. No increased tone noted. Neurological: Neurologic examination of the upper and lower extremities was nonfocal with intact sensation, muscle stretch reflexes and without focal motor deficits . Caldera?s negative bilaterally. Babinski was down going bilaterally. Clonus was negative. Gait is antalgic without loss of balance. Results Reviewed Results Reviewed: I independently reviewed the results of the following: lumbar MRI done in 2021 - multilevel disc degeneration but most notable L4-5 and L5-S1, disc herniation with bilateral foraminal narrowing. Ordering Physician: Jim Ray PA-C Date of Service: 07/05/23 Procedure(s): MR knee RT wo con Accession Number(s): [id number] cc: Kwadwo RayAngelica MCDOWELL~ EXAMINATION: MR KNEE WITHOUT CONTRAST, RIGHT CLINICAL INFORMATION: Internal derangement. COMPARISON: X-ray 07/01/2023. TECHNIQUE: MRI of the knee without contrast was performed using routine sequences on a high-field scanner. FINDINGS: MENISCI: Medial Meniscus: Intact. Lateral Meniscus: Intact. LIGAMENTS: Cruciate: Mild T2 signal in the posterior fibers of the ACL. The ACL otherwise demonstrates normal orientation without discontinuity. These findings may reflect mucoid degeneration or sprain. Intact PCL. Collateral: There is soft tissue swelling and subcutaneous tenderness edema along the lateral aspect of the knee, including overlying the LCL complex. There is edema in the soft tissues posterolateral to the femoral condyle. The biceps femoris tendon appears intact. Mild edema associated with the fibular collateral ligament suggesting sprain injury. There is edema overlying the iliotibial band, without focal tear or disruption seen. Intact MCL. Mild popliteus muscle strain. Minimal T2 signal changes in the distal popliteus tendon may reflect tendinosis or strain. EXTENSOR MECHANISM: Mild quadriceps tendinosis. No focal tear is seen. Patellar tendon is intact. ARTICULAR CARTILAGE/BONE: Patellofemoral Compartment: Patellofemoral alignment is maintained. Prominent marginal osteophytes, joint space loss. There is nonuniform cartilage loss, with more prominent areas of high-grade/full-thickness cartilage loss in the central and lateral articulation involving patella and the trochlea, with subchondral cyst/edema. Medial Compartment: Marginal osteophytes. Mild joint space loss. Mild cartilage thinning in the weightbearing compartment. Lateral Compartment: Marginal osteophytes. No focal cartilage loss. No focal fracture seen. JOINT FLUID AND BURSAE: Small effusion. No significant Reina's cyst. There is prominent soft tissue swelling and subcutaneous edema in the lateral aspect of the knee. There is edema in the underlying, lateral patellofemoral ligament/capsule. This inferiorly extends beyond the [id number]. This likely is posttraumatic in nature. No organized fluid collections are seen. Edema in the proximal lateral gastrocnemius muscle, probable strain. MR/MR knee RT wo con IMPRESSION: 1. Menisci appear intact without definitive tear. 2. ACL findings may reflect mucoid degeneration or sprain. 3. Prominent soft tissue swelling and subcutaneous edema in the lateral aspect of the knee, edema in the lateral patellofemoral ligament, capsule. This likely is posttraumatic in nature. No organized fluid collection is seen. 4. Mild fibular collateral ligament sprain. Edema overlying the iliotibial band without evidence of focal tear. Mild popliteus muscle strain. Mild popliteus tendinosis/strain. 5. Moderate-severe patellofemoral arthritis. Mild medial and lateral compartment arthritis. 6. Small effusion. 7. Proximal, lateral gastrocnemius muscle edema, probable strain. I reviewed records from the following: ortho Assessment & Plan Assessment & Plan (1) Lumbar degenerative disc disease: Code(s): M51.36 - Other intervertebral disc degeneration, lumbar region (2) Right lumbar radiculitis: Code(s): M54.16 - Radiculopathy, lumbar region (3) Sprain of lateral collateral ligament of right knee: Code(s): S83.421A - Sprain of lateral collateral ligament of right knee, initial encounter Qualifiers: Encounter type: initial encounter Qualified Code(s): S83.421A - Sprain of lateral collateral ligament of right knee, initial encounter (4) Popliteus tendinitis of right lower extremity: Code(s): M76.891 - Other specified enthesopathies of right lower limb, excluding foot Plan Chronic back pain, possible chronic right L5 radiculitis that has worsened from poor biomechanics due to recent right knee injury. Exam today still shows focal pain on right knee, particularly lateral knee and popliteal area, consistent with MRI findings of right LCL and popliteus strain. This affects his functional ability as well as worsens gait and back pain. Discussed with orthopedics. Knee treatment is non surgical. Will refer back to PT for knee pain (trial taping) and back pain. Consideration of intervention for back pain such as injections or referral to pain management to be determined after PT. Assessment and plan discussed with patient, and patient was agreeable. All questions were answered thoroughly. Sary Garcia MD, NOHEMI Board Certified, [place] Board [employer] and Rehabilitation (ABPMR) Board Certified, [place] Board of Electrodiagnostic Medicine (ABEM) Coding Level of Care Code New Pt Level 4 (95294) Diagnoses Lumbar degenerative disc disease M51.36 Right lumbar radiculitis M54.16 Sprain of lateral collateral ligament of right knee, initial encounter S83.421A Encounter type: initial encounter Popliteus tendinitis of right lower extremity M76.891
[2023-10-20 10:06] VITALS: BMI 28.7
== END 2023-10-20 10:58 | disposition home or self-care (01) ==
PROVIDERS: Visit Provider Physical Medicine & Rehabilitation
DX: M51.36 Other intervertebral disc degeneration, lumbar region (principal); M54.16 Radiculopathy, lumbar region; S83.421A Sprain of lateral collateral ligament of right knee, initial encounter; M76.891 Other specified enthesopathies of right lower limb, excluding foot
CPT/HCPCS: 99204

== ENCOUNTER → 2023-10-20 10:02 | Outpatient (BNVA) | payer OTHER, MEDICAID, SELFPAY | PROVIDERS: Visit Provider Physical Medicine & Rehabilitation | DX: M51.36 Other intervertebral disc degeneration, lumbar region (principal); M54.16 Radiculopathy, lumbar region; S83.421A Sprain of lateral collateral ligament of right knee, initial encounter; M76.891 Other specified enthesopathies of right lower limb, excluding foot | CPT/HCPCS: 99202 ==

== ENCOUNTER 2023-10-25 15:09 | Outpatient (RCR) | payer OTHER, MEDICAID, SELFPAY ==
--- NOTE | 2023-10-25 16:30 | MHC.PT.EP ---
[facility] [place] Office [place] Office [place] Office [address] Ellie Hicks [address] [phone] F: [phone] F: [phone] F: [phone] F: [phone] Physical Therapy Plan of Care Date of Evaluation: 10/25/23 Date of Surgery: N/A Diagnosis: sprain of lateral collateral ligament of RT knee (RL) Assessment: pt is a 63 y/o male presenting to physical therapy w/ referring diagnosis of sprain of lateral collateral ligament of RT knee. pt was seen for same diagnosis from 07/25/23-08/31/23. He completed 12 visits during that plan of care and per D/C report written by this therapist he was having little to no knee pain and minimal hamstring irritation. His knee range and strength is worse compared to D/C objective measures taken on 08/31/23. He also had reproduction of current symptoms w/ low back tests done today including lumbar AROM and sciatic nerve tension test. Given he is under his Worker's Comp I will only treat the knee. If his symptoms do not improve he should be evaluated for lumbar radiculopathy which I do not believe is related to his work accident. Impairments include pain, decreased range of motion, decreased strength, impaired functional mobility, impaired postural awareness, and altered ambulation mechanics. pt is a fair candidate for skilled PT due to age, potential remediation of impairments, typical disease/condition progression and prognosis, comorbidities, and motivation. pt would benefit from skilled PT intervention to provide a tailored strengthening and stretching exercise program, functional training, gait training, postural re-training, neuromuscular re-education, modalities as needed for pain, equipment safety demonstration. Frequency and Duration: The patient will be seen 2x/wk for 4 wks Short Term Goals: pt will be I w/ HEP to promote self-management of condition. pt will improve R knee extension to 0 degrees to promote normalized gait pattern on even ground. Skilled Nursing Goals: pt will demo proper lifting mechanics of 30-40# x5 reps w/o verbal cueing and <2/10 R knee pain for return to work-related tasks. pt will descend 12 stairs reciprocal pattern using railing for safety to promote ease in accessing living spaces. Treatment Plan: Modalities to reduce pain, spasms and effusion. Manual therapy to restore motion and function. Therapeutic exercise to improve strength and flexibility. Neuromuscular re-education for posture and balance. Therapeutic activities to return to functional activities of daily living. Electronically signed by: Jess Berman PT, DPT Please sign and return to therapist. Thank you for your referral.
--- NOTE | 2023-11-03 10:39 | MHC.PT.DC ---
[facility] [place] Office [place] Office [place] Office [address] Ellie Hicks [address] [facility] [phone] F: [phone] F: [phone] F: [phone] F: [phone] Physical Therapy Discharge Report Diagnosis: sprain of lateral collateral ligament of RT knee (RL) Date of Surgery: N/A Date of Evaluation: 10/25/23 Date of Discharge: 11/03/23 Treatments to Date: 1 Cancellations to Date: 0 No Shows to Date: 2 Discharge Status: Visit Non-compliance Discharge Summary: The patient has no showed two consecutive appointments. Per [facility] [place] policy, which the patient was aware of and signed, he is being discharged for non-compliance. He was called and informed of this discharge with a regional business development manager. He understands he is discharged. Electronically signed by: Jess Berman PT, DPT Please sign and return to therapist. Thank you for your referral.
== END 2023-11-03 10:39 | disposition home or self-care (01) ==
LOC: HO.PT 15:09
PROVIDERS: PCP Nurse Practitioner Primary Care; Visit Provider Physical Medicine & Rehabilitation
DX: M76.891 Other specified enthesopathies of right lower limb, excluding foot (principal); S83.421A Sprain of lateral collateral ligament of right knee, initial encounter; M54.16 Radiculopathy, lumbar region
CPT/HCPCS: 97162

== ENCOUNTER 2023-11-14 08:22 | Outpatient (AMB) | payer OTHER, MEDICAID, SELFPAY ==
--- NOTE | 2023-11-14 08:24 | A.OFFVIS_ITS ---
Intake Intake Visit Reasons: OV-right knee pain-Follow up Intake Note: Pt presents to the office today for follow up for right knee pain. Pt states the back of his knee is a little painful. Pt states he had an injection in his knee about 2 months ago and states the injection did help. Wood Heel Attacher Required: Yes Wood Heel Attacher Language: Intake Assessor Name: Diana([id number]) Allergies No Known Allergies [No Known Allergies*] Allergy (Verified 11/14/23 08:24) HPI OV-right knee pain-Follow up HPI Details 63-year-old male who returns to the [facility] today with an electrical tech/project manager for a follow-up of right knee pain. He had an injection about 2 months ago which provided him relief. He continues to have mild pain at the back of his knee. He also c/o shakiness in his foot with stepping on accelerator while driving. He was attending physical therapy however it was discontinued by . He has no other concerns. [facility] Medical History Popliteus tendinitis of right lower extremity Sprain of lateral collateral ligament of right knee Lumbar degenerative disc disease Lipoma of back Cervical radiculopathy Surgical History History of hernia repair S/P excision of lipoma Family History Father Diabetes Mother Hyperlipidemia Social History Patient Tobacco Use Status: Never used Tobacco Smoked in Last 30 Days: No Use of substances other than those prescribed or required for medical reasons: No Advance Directives: No Advance Directives Information Provided: No Current occupational status: unemployed Current occupation: Right Handed Review of Systems Const All systems reviewed & are unremarkable except as noted in HPI and below Physical Exam Extrem Other: Right knee: Skin intact, no erythema or joint effusion. Tenderness along the posterior aspect of the knee along the hamstring. Full ROM with crepitus. Negative Jose?s. No ligamentous laxity. NVI. Positive SLR Assessment & Plan Assessment & Plan (1) Patellofemoral arthritis of right knee: Code(s): M17.11 - Unilateral primary osteoarthritis, right knee (2) Right knee sprain: Code(s): S83.91XA - Sprain of unspecified site of right knee, initial encounter Qualifiers: Encounter type: initial encounter Involved ligament of knee: unspecified ligament Qualified Code(s): S83.91XA - Sprain of unspecified site of right knee, initial encounter Plan He will continue to work on his home exercises for the knee and return to work without restrictions. If symptoms persist or worsens, patient will contact the office, otherwise follow-up as needed. Patient Instructions: Scribed for Jim Ray PA-C, by Anibal Valencia medical doctor md, on 11/14/2023 at 8:30 AM EST. I, Jim Ray PA-C, have personally reviewed and agree with the information entered by the scribe. Coding Level of Care Code Est Pt Level 3 (24469) Diagnoses Patellofemoral arthritis of right knee M17.11 Sprain of right knee, unspecified ligament, initial encounter S83.91XA Encounter type: initial encounter Involved ligament of knee: unspecified ligament
== END 2023-11-14 08:55 | disposition home or self-care (01) ==
PROVIDERS: Visit Provider Physician Assistant
DX: M17.11 Unilateral primary osteoarthritis, right knee (principal); S83.91XA Sprain of unspecified site of right knee, initial encounter; W22.8XXA Striking against or struck by other objects, initial encounter; Z04.2 Encounter for examination and observation following work accident
CPT/HCPCS: 99213

== ENCOUNTER → 2023-11-14 08:22 | Outpatient (BNVA) | payer OTHER, MEDICAID, SELFPAY | PROVIDERS: Visit Provider Physician Assistant | DX: M17.11 Unilateral primary osteoarthritis, right knee (principal); S83.91XA Sprain of unspecified site of right knee, initial encounter | CPT/HCPCS: 99212 ==

== ENCOUNTER 2023-11-14 08:58 | Emergency (ER) | payer MEDICAID, SELFPAY ==
--- NOTE | ~2023-11-14 | XR_ITS ---
EXAMINATION: XR CHEST CLINICAL INFORMATION: Left chest pain. COMPARISON: 06/07/2022 TECHNIQUE: 2 views of the chest were obtained. FINDINGS: The lungs are well expanded. No focal consolidation. No pleural effusion. Cardiac silhouette is unchanged. Stable sclerotic focus projecting over the right posterior sixth rib. XR/XR chest 2V IMPRESSION: No acute abnormality.
--- NOTE | 2023-11-14 08:59 | ECG_ITS ---
Test Reason : CHEST PAIN Blood Pressure : / mmHG Vent. Rate : 096 BPM Atrial Rate : 096 BPM P-R Int : 150 ms QRS Dur : 078 ms QT Int : 336 ms P-R-T Axes : 047 -16 015 degrees QTc Int : 424 ms Normal sinus rhythm Normal ECG When compared with ECG of 07-JUN-2022 19:48, Vent. rate has increased BY 39 BPM Referred By: Generic ED Physician Electronically Signed By:EMERY HIDALGO MD
[2023-11-14 09:08] VITALS: BP 147/93; PULSE 96; RESP 20; TEMP 37.1; O2SAT 99; BMI 28.1
[2023-11-14 09:23] LABS: MANUAL DIFF FLAG NO
[2023-11-14 09:25] LABS: Basophils Percent Auto 0.6 % (0-2); Eosinophils Absolute Auto 0.1 X10*3/uL (0.0-0.4); Eosinophils Percent Auto 1.7 % (0-4); Hematocrit 45.7 % (42.0-52.0); Hemoglobin 15.7 g/dl (14.0-18.0); Imm Gran Abs Auto 0.01 X10*3/uL (0.00-0.03); Imm Gran Pct Auto 0.2 % (0.0-0.4); Lymphocytes Absolute Auto 2.2 X10*3/uL (1.2-4.9); Lymphocytes Percent Auto 39.6 % (20-40); Mean Corpuscular HGB Conc 34.4 g/dl (31.0-36.0); Mean Corpuscular Hemoglobin 28.1 pg (27.0-33.0); Mean Corpuscular Volume 81.9 fL (80.0-98.0); Mean Platelet Volume 11.1 fL (9.4-12.4); Monocytes Absolute Auto 0.5 X10*3/uL (0.1-1.2); Monocytes Percent Auto 9.2 % (2-11); Neutrophils Absolute Auto 2.7 x10*3/uL (2.0-8.3); Neutrophils Percent Auto 48.7 % (45-73); Platelet Count 277 X10*3/uL (160-400); Red Blood Count 5.58 X10*6/uL (4.60-5.80); Red Cell Distribution Width 12.1 % (11.0-16.0); White Blood Count 5.4 X10*3/uL (4.8-10.8)
[2023-11-14 09:36] LABS: Anion Gap 17 (12-20); Blood Urea Nitrogen 11 mg/dL (9-16); Calcium 9.5 mg/dL (8.4-10.2); Carbon Dioxide 25 mmol/L (22-29); Chloride 102 mmol/L (96-108); Creatinine Clr Calc Pharmacy 83.9; Estimated Glomerular Filt Rate > 60; Glucose Random 295 mg/dL (60-115); Potassium 4.7 mmol/L (3.3-5.1); Sodium 139 mmol/L (135-145)
[2023-11-14 09:44] LABS: Troponin-I High Sensitivity 26.4 ng/L (<3.5-35.0)
[2023-11-14 09:51] VITALS: BP 163/97; PULSE 90; RESP 16; TEMP 37.3; O2SAT 99
--- NOTE | 2023-11-14 09:52 | PC.NURSE ---
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 Pt reports left sided chest pain radiating down left arm starting around 11AM yesterday. Pt reports pain 5/10, describes as pulsating and throbbing. Pt denies any other symptoms. Pt denies any fever. cough, N/V/D, SOB, recent illnesses or injuries. Pt reports hx of diabetes and takes his meds, sometimes . Pt denies this pain ever happening before. Pt alert and oriented, breathing even and unlabored, skin WNL. Pt in no acute distress at this time, resting in bed. Placed on bedside cardiac exercise specialist, NSR.
--- NOTE | 2023-11-14 10:11 | ED.CHESTPAIN ---
HPI - Chest Pain General Chief Complaint: Chest Pain Stated Complaint: Chest pain/Dizziness Time Seen by Provider: 11/14/23 09:51 Source: patient, RN notes reviewed, old records reviewed and official court interpreter (german) Mode of arrival: ambulatory Limitations: language barrier History of Present Illness HPI narrative: 63-year-old Pashto-speaking male with pmhx significant for diabetes presents to the ED this morning for evaluation of chest pain that began acutely yesterday. Admits chest pain is localized to the left side of his chest and is radiating down his left arm. Admits left-sided chest pain is exacerbated with lifting the left arm. Denies injury or trauma to his chest or arm. He does not recall what he was doing at onset of pain. Denies numbness/tingling/weakness down the LUE. Admits to noncompliance with metformin as he does not like to take pills. He admits to making dietary changes and drinking natural teas instead. States that he has not seen his PCP in over a year. He tried making an appointment with him last year and it fell through which left a sour taste in his mouth. He denies headache, dizziness, vision changes, N/V, palpitations, SOB, dyspnea, hemoptysis, cough, sputum production, lower extremity pain/swelling. Denies recent travel or long car rides. Denies known sick contacts. spanish interpreter utilized throughout visit to communicate with patient. Related Data Home Medications Medication Instructions Recorded Confirmed blood-glucose meter (FreeStyle #1 ea 06/04/20 10/20/23 [place] Lite kit) glipizide 10 mg tablet 10 mg PO DAILY 06/04/20 10/20/23 lancets [TRUEplus Lancets] miscellaneous 06/04/20 10/20/23 metformin 500 mg tablet 500 mg PO BID 06/04/20 10/20/23 sitagliptin phosphate 100 mg 100 mg PO DAILY 06/04/20 10/20/23 tablet (Januvia) atorvastatin 40 mg tablet 40 mg PO BEDTIME cholesterol 07/01/23 10/20/23 metformin 1,000 mg tablet 1,000 mg PO 07/01/23 10/20/23 Previous Rx's Medication Instructions Recorded lidocaine 5 % topical patch 1 patch topical DAILY #15 ea 06/28/23 cyclobenzaprine 5 mg tablet 5 mg PO Q8H PRN muscle spasm #7 11/14/23 tabs Allergies Allergy/AdvReac Type Severity Reaction Status Date / Time No Known Allergies Allergy Verified 11/14/23 08:24 [No Known Allergies*] Review of Systems Review of Systems: Constitutional: No fever, chills, fatigue, night sweats, weight changes ENT/Mouth: No ear pain, hearing loss, nasal congestion, sinus pain, rhinorrhea, sore throat Eyes: No eye pain, swelling, redness, vision changes, discharge Cardio: No palpitations, FAN, orthopnea, peripheral edema, +chest pain Pulm: No SOB, cough, sputum, wheezing, dyspnea, hemoptysis GI: No nausea, vomiting, hematemesis, abdominal pain, diarrhea, constipation, hematochezia, melena : No irregular bleeding, dysuria, frequency, urgency, hesitancy, hematuria, flank pain, urinary flow changes, urinary incontinence or retention MSK: No back pain, neck pain, joint pain, myalgias Skin: No lesions, rashes Neuro: No weakness, numbness, paresthesias, LOC, dizziness, headache Psych: No anxiety/panic, depression, SI/HI, AH/VH All other systems reviewed and are negative. [facility] Past Medical History Attestation statement: The following information was validated with the patient. Source: old records reviewed and nursing notes reviewed Medical History Popliteus tendinitis of right lower extremity Sprain of lateral collateral ligament of right knee Lumbar degenerative disc disease Lipoma of back Cervical radiculopathy Surgical History History of hernia repair S/P excision of lipoma Family History Family History Father Diabetes Mother Hyperlipidemia Social History Social History Patient Tobacco Use Status: Never used Tobacco Smoked in Last 30 Days: No Use of substances other than those prescribed or required for medical reasons: No Advance Directives: No Advance Directives Information Provided: No Current occupational status: unemployed Current occupation: Right Handed Physical Exam Vital Signs: Vital Signs: Last Vital Signs Temp 99.3 F 11/14/23 14:33 Pulse 88 11/14/23 14:33 Resp 16 11/14/23 14:33 BP 151/95 H 11/14/23 14:33 Pulse Ox 99 11/14/23 14:33 O2 Del Method Room Air 11/14/23 14:33 BMI result Body Mass Index 28.1 Patient hypertensive, vitals otherwise WNL. Const: General: cooperative, healthy appearing, comfortable and no acute distress Orientation/consciousness: patient oriented x3 Limitations: no limitations HEENT: Head: Yes normal to inspection, Yes No palpable skull fracture present, Yes normocephalic and Yes atraumatic Eyes: General: appearance normal, both eyes and all related structures Conjunctivae: conjunctivae normal Sclerae: sclerae normal Pupils: Equal, round and reactive pupils present EOM: EOMs intact bilaterally Neck: Neck: Yes normal visual inspection, Yes full ROM, Yes no lymphadenopathy and Yes no JVD Chest: Other: + left anterior chest wall tender to palpation without palpable deformity or crepitus. No left lateral or posterior chest wall tenderness. Symmetric chest rise Chest palpation & inspection: normal inspection of the chest and normal palpation of entire chest wall Resp: Effort & Inspection: normal respiratory effort, able to speak in complete sentences and symmetric chest movement Auscultation: clear to auscultation bilaterally, no crackles, no rhonchi and no wheezes Cardio: Other: + 2+ radial pulses. No JVD or peripheral edema. Rate: regular rate Rhythm: regular rhythm GI: Inspection: Yes normal to inspection Skin: General skin exam: no rashes or lesions noted Neuro: General: patient oriented x3 and gait normal Cranial nerves: Yes Equal, round and reactive pupils present Extrem: General: Yes normal to inspection Course Course Course Narrative: 1407-- CBC without leukocytosis or left shift. No anemia. H&H stable. Chemistry without acute electrolyte abnormality requiring intervention. Glucose elevated to 295 secondary to noncompliance with medication. Initial troponin 26.4, delta troponin 23.1 > ACS unlikely. Lipase WNL > no concern for pancreatitis. Normal renal function. Chest x-ray does not demonstrate infiltrate or consolidation to suggest pneumonia. Chest x-ray does show stable sclerotic focus projecting over the right posterior 6th rib that patient states he is aware of. Glucose elevated to 295 secondary to noncompliance with medication > he is declining any intervention such as IVF or insulin at this time. I have offered to provide him referral to new PCP for further management of his diabetes and he is agreeable to this. Patient's pain is likely musculoskeletal in etiology. Will send pain medication to pharmacy. I advised patient to follow up with PCP regarding his diabetes along with his elevated blood pressure. He verbalizes understanding. Patient has remained stable throughout ED visit today. Discussed worrisome signs and symptoms and when to return to the ED. All questions answered at this time. Patient is agreeable with disposition and stable for discharge. Medications Administered Discontinued Medications Generic Name Dose Route Start Last Admin Trade Name Dominic PRN Reason Stop Dose Admin Acetaminophen 975 mg 11/14/23 12:20 11/14/23 12:29 Acetaminophen 325 Mg Tablet PO 11/14/23 12:21 975 mg ONCE ONE Administration Medical Decision Making Medical Decision Making [facility] Narrative: 63-year-old Pashto-speaking male with pmhx significant for diabetes presents to the ED this morning for evaluation of chest pain that began acutely yesterday. Patient noted to be hypertensive without history of hypertension. Vitals otherwise WNL. He is nontoxic-appearing and in no acute distress. RRR. Left anterior chest wall tender to palpation. No crepitus or palpable deformity. Full ROM noted to left shoulder with left anterior chest pain on flexion of the left shoulder. No palpable deformity over the clavical or AC joint. No overlying skin changes or joint edema. Lungs CTA bilaterally, no wheezes, rhonchi or crackles. No peripheral edema or JVD. NO calf tenderness bilaterally. Differential diagnosis includes ACS, arrhythmia, costochondritis, pleuritis, msk sprain/ strain, viral syndrome, pneumonia, electrolyte abnormality, anemia. Lower suspicion for PE, effusion, ruptured aneurysm. Plan for labs, ekg, cxr, and re-evaluation. Differential Diagnosis Differential Diagnoses: The differential diagnosis associated with the presentation includes as above. Admission/Observation Not indicated. Lab Data [facility] Lab Attestation statement: I reviewed the patient's lab results. as above. 11/14/23 09:19 11/14/23 09:19 Labs: Lab Results 11/14/23 11/14/23 Range/Units 09:19 13:40 WBC 5.4 (4.8-10.8) X10*3/uL RBC 5.58 (4.60-5.80) X10*6/uL Hgb 15.7 (14.0-18.0) g/dl Hct 45.7 (42.0-52.0) % MCV 81.9 (80.0-98.0) fL MCH 28.1 (27.0-33.0) pg MCHC 34.4 (31.0-36.0) g/dl RDW 12.1 (11.0-16.0) % Plt Count 277 D (160-400) X10*3/uL MPV 11.1 (9.4-12.4) fL Immature Gran % (Auto) 0.2 (0.0-0.4) % Neut % (Auto) 48.7 (45-73) % Lymph % (Auto) 39.6 (20-40) % Faulkner % (Auto) 9.2 (2-11) % Eos % (Auto) 1.7 (0-4) % Baso % (Auto) 0.6 (0-2) % Lymph # (Auto) 2.2 (1.2-4.9) X10*3/uL Faulkner # (Auto) 0.5 (0.1-1.2) X10*3/uL Eos # (Auto) 0.1 (0.0-0.4) X10*3/uL Baso # (Auto) 0.0 (0.0-0.2) X10*3/uL Abs Immat Gran (auto) 0.01 (0.00-0.03) X10*3/uL Absolute Neuts (auto) 2.7 (2.0-8.3) x10*3/uL Absolute Nucleated RBC 0.000 (0.0-0.012) X10*3/uL Nucleated RBC % (auto) 0.0 (0.0-0.2) /100WBC Sodium 139 (135-145) mmol/L Potassium 4.7 (3.3-5.1) mmol/L Chloride 102 (96-108) mmol/L Carbon Dioxide 25 (22-29) mmol/L Anion Gap 17 (12-20) BUN 11 (9-16) mg/dL Creatinine 0.95 (0.5-1.4) mg/dL Estim Creat Clear Calc 83.9 Estimated GFR > 60 Random Glucose 295 H (60-115) mg/dL Calcium 9.5 (8.4-10.2) mg/dL Magnesium 1.9 (1.6-2.6) mg/dL Troponin I High Sens 26.4 23.1 (<3.5-35.0) ng/L Lipase 42 (8-78) U/L Independent Interpretation I performed an independent interpretation of an: EKG and Plain X-Ray Interpretation: EKG showing normal sinus rhythm with a rate of 96 beats per minute, QT 336, QTC 424, no acute ischemic changes or ST elevations I personally reviewed chest x-ray and agree with radiologist's interpretation Radiology Impression Discussion of test interpretation with radiology: I have reviewed the radiologist's reading. Radiologist Impression: EXAMINATION: XR CHEST CLINICAL INFORMATION: Left chest pain. COMPARISON: 06/07/2022 TECHNIQUE: 2 views of the chest were obtained. FINDINGS: The lungs are well expanded. No focal consolidation. No pleural effusion. Cardiac silhouette is unchanged. Stable sclerotic focus projecting over the right posterior sixth rib. XR/XR chest 2V IMPRESSION: No acute abnormality. External Record Review External record reviewed: Inpatient record, Office record, Outpatient record, Prior outpatient labs, Prior outpatient radiology, Primary care record and Outside ED record Prescription Management I considered prescription management with: Pain Medication and Other (flexeril) Chronic Conditions Patient?s care impacted by: Diabetes Social Determinants Patient?s care significantly limited by Social Determinants of Health including: Other Social Determinant of Health Critical Care Time Critical Care Time Critical Care Time: Yes Total Critical Care Time: 35 Attestation: Critical care time in the amount of 35 minutes has been provided to the patient in terms of direct patient care, frequent reevaluation, review and interpretation of medical data and results, and management of potentially life-threatening conditions. This is all outside of any medical procedures. Discharge Plan Discharge Clinical Impression: Anterior chest wall pain Patient Disposition: Home, Self-Care Instructions: Chest Wall Pain (ED) Additional Instructions: Your lab work and chest xray today are reassuring. Your EKG is normal. Your pain may be muscular in etiology. Flexeril as a muscle relaxer that has been sent to your pharmacy. Take this as directed. Do not drink/drive/operate heavy machinery while taking this medication. You may also take Tylenol and ibuprofen at home as needed. Your blood sugar was noted to be elevated today likely because you are not taking your metformin. Please follow-up with primary care provider regarding this as they can present other options for treatment. You have been provided with primary care referrals. You may call them to establish care. They will not call you. Please return to the ED with new or worsening symptoms. In the case of an emergency call 911. Prescriptions: New cyclobenzaprine 5 mg tablet 5 mg PO Q8H PRN (Reason: muscle spasm) Qty: 7 0RF No Action lidocaine 5 % adhesive patch,medicated 1 patch topical DAILY Qty: 15 0RF Rx Instructions: leave on most painful area for up to 12 hrs metformin 500 mg tablet 500 mg PO BID Januvia 100 mg tablet 100 mg PO DAILY glipizide 10 mg tablet 10 mg PO DAILY lancets miscellaneous (DME) blood-glucose meter [FreeStyle [place] Lite] Kit See Rx Instructions .ROUTE .MEDSUPPLY Qty: 1 Rx Instructions: As directed metformin 1,000 mg tablet 1,000 mg PO atorvastatin 40 mg tablet 40 mg PO BEDTIME Referrals: [facility] Family Medicine [Provider Group] [facility] Primary CareHeriberto [Provider Group] [facility] Primary Care[facility] [Provider Group] Interventions: ED Discharge Assessment Last Done: 11/14/23 14:33 Discharge Date/Time: 11/14/23 14:35 Print Language: Pashto
[2023-11-14 10:40] LABS: Lipase 42 U/L (8-78); Magnesium 1.9 mg/dL (1.6-2.6)
[2023-11-14] MEDS: Acetaminophen 325 MG TABLET 975 MG PO (12:29)
[2023-11-14 14:05] LABS: Troponin-I High Sensitivity 23.1 ng/L (<3.5-35.0)
[2023-11-14 14:27] VITALS: BP 151/95; PULSE 88; RESP 16; TEMP 37.4; O2SAT 99
[2023-11-14 14:33] VITALS: BP 151/95; PULSE 88; RESP 16; TEMP 37.4; O2SAT 99
== END 2023-11-14 14:35 | disposition home or self-care (01) ==
PROVIDERS: Physician Assistant Medical; Emergency Provider Emergency Medicine
DX: R07.89 Other chest pain (principal); R42 Dizziness and giddiness; M79.602 Pain in left arm; Z79.899 Other long term (current) drug therapy
CPT/HCPCS: 36415; 71046; 80048; 83690; 83735; 84484; 85025; 93005; 99284; 99285

== ENCOUNTER → 2023-11-14 08:59 | Outpatient (BNV) | payer MEDICAID, SELFPAY | PROVIDERS: Emergency Provider Emergency Medicine; Visit Provider Internal Medicine Cardiovascular Disease | DX: R07.9 Chest pain, unspecified (principal) | CPT/HCPCS: 93010 ==

== ENCOUNTER 2023-11-24 09:50 | Outpatient (AMB) | payer OTHER, MEDICAID, SELFPAY ==
--- NOTE | 2023-11-24 09:54 | MHC.OFFVIS ---
Intake Vital Signs 11/24/23 09:55 Height 5 ft 8 in Weight 185 lb BMI 28.1 Intake Visit Reasons: OV-low back pain/sciatica-Follow up Intake Note: Rishabh 63 yr old male presents today for his follow up visit for his lower back pain/sciatica pain s/p therapy. States therapy helped very little. He contiues to have pain and tightness behind his right leg and is not able to fully straighten it without increasing pain. Compliance Examiner Required: Yes Allergies No Known Allergies [No Known Allergies*] Allergy (Verified 11/24/23 10:00) Medication List - Last Reconciled 11/24/23 by Sary Garcia MD atorvastatin 40 mg PO BEDTIME blood-glucose meter (FreeStyle [place] Lite kit) As directed cyclobenzaprine 5 mg PO Q8H PRN glipizide 10 mg PO DAILY lancets (TRUEplus Lancets) miscellaneous lidocaine 5% 1 patch topical DAILY metformin 500 mg PO BID metformin 1,000 mg PO sitagliptin phosphate (Januvia) 100 mg PO DAILY HPI HPI Comments History of Present Illness Details Here with daughter. 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 Chronic back pain, at least 5 years. Denies inciting injuries. Denies seeing other specialist before. He did have lumbar MRI in 2021. Daughter says he had injections for neck and shoulder in the past, but not on lower back. Points to right side, down to leg and to toes. Admits chronic numbness on right foot. Daughter says he had EMG few years ago at [facility] but cannot remember results. Results are not on EMR. Per patient back pain getting worse since knee injury. Daughter says last June, he had knee injury which has made the back pain worse. 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 He's been going to PT for the knee pain. Knee injection done by ortho but not much relief. Since last seen, he has been discharged from PT. PT notes said that he had no showed to appointments. He says that it was because discontinued coverage for PT and told him not to go anymore. He has also seen ortho, again deemed non surgical. Says pain is on posterior knee. Denies any severe back pain this time, only occasionally bothering him. [facility] Medical History Popliteus tendinitis of right lower extremity Sprain of lateral collateral ligament of right knee Lumbar degenerative disc disease Lipoma of back Cervical radiculopathy Surgical History History of hernia repair S/P excision of lipoma Family History Father Diabetes Mother Hyperlipidemia Social History Patient Tobacco Use Status: Never used Tobacco Current occupational status: unemployed Current occupation: Right Handed Physical Exam Vital Signs: BMI result Body Mass Index 28.1 Constitutional: Patient appears to be in no acute distress, well nourished and well developed. Patient was appropriately conversant and oriented. Good historian. MSK: No specific abnormalities found on inspection of the spine and all extremities. Non tender on right lumbar paraspinals. No tenderness on right SI or GT. Lumbar ROM was full. Straight-leg raising test negative. FABERE test negative. Improved right knee ROM. 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 No ligamentous laxity or crepitant. No increased effusion. No joint line tenderness. No tenderness over patella. Patellar grind test is negative. Anterior drawer test is negative. Chuck test is negative. Posterior drawer test is negative. Valgus stress test right knee positive. Varus stress tests are negative. Stacy test is negative. No increased tone noted. Neurological: Neurologic examination of the upper and lower extremities was nonfocal with intact sensation, muscle stretch reflexes and without focal motor deficits . Caldera?s negative bilaterally. Babinski was down going bilaterally. Clonus was negative. Gait is non antalgic without loss of balance. Results Reviewed Results Reviewed: I independently reviewed the results of the following: lumbar MRI done in 2021 - multilevel disc degeneration but most notable L4-5 and L5-S1, disc herniation with bilateral foraminal narrowing. Ordering Physician: Jim Ray PA-C Date of Service: 07/05/23 Procedure(s): MR knee RT wo con Accession Number(s): [id number] cc: Jim Ray PA-C~ EXAMINATION: MR KNEE WITHOUT CONTRAST, RIGHT CLINICAL INFORMATION: Internal derangement. COMPARISON: X-ray 07/01/2023. TECHNIQUE: MRI of the knee without contrast was performed using routine sequences on a high-field scanner. FINDINGS: MENISCI: Medial Meniscus: Intact. Lateral Meniscus: Intact. LIGAMENTS: Cruciate: Mild T2 signal in the posterior fibers of the ACL. The ACL otherwise demonstrates normal orientation without discontinuity. These findings may reflect mucoid degeneration or sprain. Intact PCL. Collateral: There is soft tissue swelling and subcutaneous tenderness edema along the lateral aspect of the knee, including overlying the LCL complex. There is edema in the soft tissues posterolateral to the femoral condyle. The biceps femoris tendon appears intact. Mild edema associated with the fibular collateral ligament suggesting sprain injury. There is edema overlying the iliotibial band, without focal tear or disruption seen. Intact MCL. Mild popliteus muscle strain. Minimal T2 signal changes in the distal popliteus tendon may reflect tendinosis or strain. EXTENSOR MECHANISM: Mild quadriceps tendinosis. No focal tear is seen. Patellar tendon is intact. ARTICULAR CARTILAGE/BONE: Patellofemoral Compartment: Patellofemoral alignment is maintained. Prominent marginal osteophytes, joint space loss. There is nonuniform cartilage loss, with more prominent areas of high-grade/full-thickness cartilage loss in the central and lateral articulation involving patella and the trochlea, with subchondral cyst/edema. Medial Compartment: Marginal osteophytes. Mild joint space loss. Mild cartilage thinning in the weightbearing compartment. Lateral Compartment: Marginal osteophytes. No focal cartilage loss. No focal fracture seen. JOINT FLUID AND BURSAE: Small effusion. No significant Reina's cyst. There is prominent soft tissue swelling and subcutaneous edema in the lateral aspect of the knee. There is edema in the underlying, lateral patellofemoral ligament/capsule. This inferiorly extends beyond the [id number]. This likely is posttraumatic in nature. No organized fluid collections are seen. Edema in the proximal lateral gastrocnemius muscle, probable strain. MR/MR knee RT wo con IMPRESSION: 1. Menisci appear intact without definitive tear. 2. ACL findings may reflect mucoid degeneration or sprain. 3. Prominent soft tissue swelling and subcutaneous edema in the lateral aspect of the knee, edema in the lateral patellofemoral ligament, capsule. This likely is posttraumatic in nature. No organized fluid collection is seen. 4. Mild fibular collateral ligament sprain. Edema overlying the iliotibial band without evidence of focal tear. Mild popliteus muscle strain. Mild popliteus tendinosis/strain. 5. Moderate-severe patellofemoral arthritis. Mild medial and lateral compartment arthritis. 6. Small effusion. 7. Proximal, lateral gastrocnemius muscle edema, probable strain. I reviewed records from the following: ortho Assessment & Plan Assessment & Plan (1) Popliteus tendinitis of right lower extremity: Code(s): M76.891 - Other specified enthesopathies of right lower limb, excluding foot (2) Sprain of lateral collateral ligament of right knee: Code(s): S83.421A - Sprain of lateral collateral ligament of right knee, initial encounter Qualifiers: Encounter type: initial encounter Qualified Code(s): S83.421A - Sprain of lateral collateral ligament of right knee, initial encounter Plan He denies anymore lumbar or back pain. Exam does not show radiculopathy. Continues with posterior and lateral right knee pain though ROM improved. No signs of effusion. It is unfortunate that [facility] discontinued his PT coverage. But he is willing to return under medical insurance. Will put new referral for PT. Reassured that this would improve in time, but needs continued rehab and exercise. Assessment and plan discussed with patient, and patient was agreeable. All questions were answered thoroughly. Follow-up 3 months. Sary Garcia MD, NOHEMI Board Certified, [place] [employer] and Rehabilitation (ABPMR) Board Certified, [place] Board [employer] Electrodiagnostic Medicine (ABEM) Orders: Orders PT Evaluation and Treatment Today M76.891 - Other specified enthesopathies of right lower limb, excluding foot, S83.421A - Sprain of lateral collateral ligament of right knee, initial encounter Coding Level of Care Code Est Pt Level 3 (52121) Diagnoses Popliteus tendinitis of right lower extremity M76.891 Sprain of lateral collateral ligament of right knee, initial encounter S83.421A Encounter type: initial encounter
[2023-11-24 09:55] VITALS: BMI 28.1
== END 2023-11-24 10:16 | disposition home or self-care (01) ==
PROVIDERS: Visit Provider Physical Medicine & Rehabilitation
DX: M76.891 Other specified enthesopathies of right lower limb, excluding foot (principal); S83.421A Sprain of lateral collateral ligament of right knee, initial encounter
CPT/HCPCS: 99213

== ENCOUNTER → 2023-11-24 09:50 | Outpatient (BNVA) | payer OTHER, MEDICAID, SELFPAY | PROVIDERS: Visit Provider Physical Medicine & Rehabilitation | DX: M76.891 Other specified enthesopathies of right lower limb, excluding foot (principal); S83.421A Sprain of lateral collateral ligament of right knee, initial encounter | CPT/HCPCS: 99212 ==

== ENCOUNTER 2024-02-23 10:14 | Outpatient (AMB) | payer MEDICAID, SELFPAY ==
--- NOTE | 2024-02-23 10:32 | MHC.OFFVIS ---
Intake Visit Reasons: OV-low back pain/sciatica-Follow up Intake Note: Rishabh is a 63 year old male who presents to the office today for low back pain/sciatica. Patient states he has completed PT and it has offered him mild relief. He continues to have back pain daily that comes and goes. When he lies down at night and wakes up in the morning he expresses pain at its worse, if he remains active he does not have the pain but once he goes to rest his pain returns. Tylenol offers him pain relief. Hx of DM. Assistant Real Estate Manager Required: Yes Assistant Real Estate Manager Language: It Corporate Recruiter Name: [id number] Allergies No Known Allergies [No Known Allergies*] Allergy (Verified 02/23/24 10:39) Medication List - Last Reconciled 02/23/24 by Sary Garcia MD atorvastatin 40 mg PO BEDTIME blood-glucose meter (FreeStyle [place] Lite kit) As directed cyclobenzaprine 5 mg PO Q8H PRN glipizide 10 mg PO DAILY lancets (TRUEplus Lancets) miscellaneous lidocaine 5% 1 patch topical DAILY metformin 500 mg PO BID metformin 1,000 mg PO sitagliptin phosphate (Januvia) 100 mg PO DAILY HPI Comments Details: I have seen him in November for knee pain under WC. This is my 1st time to see him outside of WC. Here today for back pain. Lower back, across the lower back, described as cramping. Radiates down to right calf. There is some discomfort and numbness on right calf, not the foot. MRI in 2021 as below. Last PT 3 months ago. No injections yet. Does not want to trial injections. Takes tylenol. Has not tried gabapentin. 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 Patient was appropriately conversant and oriented. Good historian. MSK: No specific abnormalities found on inspection of the spine and all extremities. Tenderness on right lumbar paraspinals, mildly on right SI joint, mildly along right ITB, along right calf. No calf tenderness. Lumbar ROM was full. Bilateral hip, knee and ankle ROM WNL. No ligamentous laxity or crepitance. No increased effusion. Straight-leg raising test negative. FABERE test positive right. Strength is 5/5 in all muscle groups tested. No increased tone noted. Neurological: Neurologic examination of the upper and lower extremities was nonfocal with intact sensation, muscle stretch reflexes and without focal motor deficits . Babinski was down going bilaterally. Clonus was negative. Gait is non-antalgic without loss of balance. Results Reviewed Results Reviewed: Ordering Physician: Samantha Davis NP Date of Service: 09/28/21 Procedure(s): MR lumbar spine wo con Accession Number(s): [id number] cc: Samantha Davis NP~ EXAMINATION: MR LUMBAR SPINE WITHOUT CONTRAST CLINICAL INFORMATION: Right lower extremity weakness. Foot drop. Evaluate for cauda equina. COMPARISON: Lumbar spine radiographs 09/28/2019. CT abdomen and pelvis 10/05/2019. TECHNIQUE: MRI of the lumbar spine was obtained using routine sequences without contrast. FINDINGS: Alignment is normal. Vertebral body heights are preserved. No acute bone marrow signal changes. There is disc desiccation at L4-L5 and L5-S1 without substantial loss of intervertebral disc height at either of these 2 levels. The tip of the conus medullaris is located at L2. No mass effect on the conus. Visualized distal cord signal intensity is normal. At L1-L2 there is a slightly bulging disc. No canal stenosis. No mass effect on the traversing or foraminal nerve roots. At L2-L3 there is a slightly bulging disc. No canal stenosis. No mass effect on the traversing or foraminal nerve roots. At L3-L4 there is a slightly bulging disc. No canal stenosis. No mass effect on the traversing or foraminal nerve roots. At L4-L5 there is a broad shallow central protrusion superimposed upon a bulging disc. Bilateral facet degenerative change. Moderate canal stenosis. Subarticular zone narrowing causes displacement and possible compression of both traversing L5 nerve roots. Mild compression of both L4 foraminal nerve roots. At L5-S1 there is an asymmetrically bulging disc to the right. Advanced bilateral facet degenerative change. Mild canal stenosis. Asymmetric narrowing of the right subarticular zone causes displacement and possible compression of the right traversing S1 nerve roots. Moderate compression of both L5 foraminal nerve roots, greater on the right. Limited visualization of the retroperitoneal anatomy reveals no abnormal finding. Psoas and paraspinal muscle groups are symmetric. MR/MR lumbar spine wo con IMPRESSION: There is multilevel degenerative spondylosis primarily involving the lower lumbar spine. A broad shallow central protrusion in conjunction with facet degenerative change at L4-L5 causes moderate canal stenosis. Otherwise no canal compromise. There is mass effect on the traversing and foraminal segments of the nerve roots at L4-L5 and L5-S1 as described above Assessment & Plan Assessment & Plan (1) Right lumbar radiculitis: Code(s): M54.16 - Radiculopathy, lumbar region Category: Medical (2) Lumbar degenerative disc disease: Code(s): M51.36 - Other intervertebral disc degeneration, lumbar region Category: Medical Plan MRI in 2021 showed disc protrusion with possible foraminal narrowing L5-S1 right side. I think this still consistent with current symptoms. Patient does not want to consider injections. He has already finished course of physical therapy. Discussed trial of non opiate oral medications. We can trial gabapentin 100 mg q.h.s.. 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 Advised not to take during the day so as not to make him sedated, do not use machinery if sleepy. Discussed other side effects. Assessment and plan discussed with patient, and patient was agreeable. All questions were answered thoroughly. Follow up 2 months for medication review. Sary Garcia MD, NOHEMI Board Certified, [place] Board of Physical Medicine and Rehabilitation (ABPMR) Board Certified, [place] Board of Electrodiagnostic Medicine (ABEM) Medications: New gabapentin 100 mg PO BEDTIME 30 caps 1RF Discontinued cyclobenzaprine Discontinued Reason: Patient no longer taking 5 mg PO Q8H PRN 7 tabs 0RF muscle spasm Coding Level of Care Code New Pt Level 4 (88889) Diagnoses Right lumbar radiculitis M54.16 Lumbar degenerative disc disease M51.36
== END 2024-02-23 11:09 | disposition home or self-care (01) ==
PROVIDERS: Visit Provider Physical Medicine & Rehabilitation
DX: M54.16 Radiculopathy, lumbar region (principal); M51.36 Other intervertebral disc degeneration, lumbar region
CPT/HCPCS: 99214

== ENCOUNTER → 2024-02-23 10:14 | Outpatient (BNVA) | payer OTHER, MEDICAID, SELFPAY | PROVIDERS: Visit Provider Physical Medicine & Rehabilitation | DX: M54.16 Radiculopathy, lumbar region (principal); M51.36 Other intervertebral disc degeneration, lumbar region | CPT/HCPCS: 99212 ==

== ENCOUNTER 2024-04-25 09:20 | Outpatient (REF) | payer OTHER, SELFPAY ==
[2024-04-25 11:41] LABS: Estimated Average Glucose 260 mg/dL; Hemoglobin A1c % 10.7 % (<6.0)
[2024-04-25 11:52] LABS: Cholesterol 206 mg/dL (<200); HDL Cholesterol 54 mg/dL (>40); LDL Cholesterol Calculated 136 mg/dL (<100); Triglycerides 80 mg/dL (<150)
[2024-04-25 12:16] LABS: Creatinine Urine 67.07 mg/dL; Microalbumin Urine < 5.0 mg/L
== END 2024-04-25 09:21 | disposition home or self-care (01) ==
LOC: HO.HHCL 09:20
PROVIDERS: Visit Provider Nurse Practitioner Primary Care
DX: E11.69 Type 2 diabetes mellitus with other specified complication (principal); E78.5 Hyperlipidemia, unspecified; M54.16 Radiculopathy, lumbar region; M51.36 Other intervertebral disc degeneration, lumbar region; M48.061 Spinal stenosis, lumbar region without neurogenic claudication
CPT/HCPCS: 36415; 80061; 82043; 82570; 83036; 99212

== ENCOUNTER 2024-04-25 11:02 | Outpatient (AMB) | payer OTHER, MEDICAID, SELFPAY ==
--- NOTE | 2024-04-25 11:07 | A.OFFVIS_ITS ---
Intake Visit Reasons: OV-low back pain/sciatica-Follow up Intake Note: Rishabh is a 63 year old male who presents to the office today for a follow up evaluation of low back pain and sciatic pain. Patient reports gabapentin has been a little helpful but states he is still having pain especially at night after working all day. He states the pain isn't as strong during the day but at night is when he feels the most pain. Medical Equipment Repair Technician Required: Yes Medical Equipment Repair Technician Language: Nail Welter Services: Medical Equipment Repair Technician Present Medical Equipment Repair Technician Name: Marcie ([id number]) Allergies No Known Allergies [No Known Allergies*] Allergy (Verified 04/25/24 11:09) HPI Comments Details: Lower back, across the lower back, described as cramping. Radiates down to right calf. There is some discomfort and numbness on right calf, not the foot. Denies bladder/bowel changes. MRI in 2021 as below. Moderate stenosis L4-5 and L5-S1, spondylosis. Last PT 3 months ago. No injections yet. Does not want to trial injections. We tried gabapentin - 100mg qhs, took for a month but had ran out and did not call for refills. Helped a little bit only, mostly at night. Denies complications or side effects. He has never met a neurosurgeon before. He says he wants to avoid surgeries. 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 Foot drop. Evaluate for cauda equina. COMPARISON: Lumbar spine radiographs 09/28/2019. CT abdomen and pelvis 10/05/2019. TECHNIQUE: MRI of the lumbar spine was obtained using routine sequences without contrast. FINDINGS: Alignment is normal. Vertebral body heights are preserved. No acute bone marrow signal changes. There is disc desiccation at L4-L5 and L5-S1 without substantial loss of intervertebral disc height at either of these 2 levels. The tip of the conus medullaris is located at L2. No mass effect on the conus. Visualized distal cord signal intensity is normal. At L1-L2 there is a slightly bulging disc. No canal stenosis. No mass effect on the traversing or foraminal nerve roots. At L2-L3 there is a slightly bulging disc. No canal stenosis. No mass effect on the traversing or foraminal nerve roots. At L3-L4 there is a slightly bulging disc. No canal stenosis. No mass effect on the traversing or foraminal nerve roots. At L4-L5 there is a broad shallow central protrusion superimposed upon a bulging disc. Bilateral facet degenerative change. Moderate canal stenosis. Subarticular zone narrowing causes displacement and possible compression of both traversing L5 nerve roots. Mild compression of both L4 foraminal nerve roots. At L5-S1 there is an asymmetrically bulging disc to the right. Advanced bilateral facet degenerative change. Mild canal stenosis. Asymmetric narrowing of the right subarticular zone causes displacement and possible compression of the right traversing S1 nerve roots. Moderate compression of both L5 foraminal nerve roots, greater on the right. Limited visualization of the retroperitoneal anatomy reveals no abnormal finding. Psoas and paraspinal muscle groups are symmetric. MR/MR lumbar spine wo con IMPRESSION: There is multilevel degenerative spondylosis primarily involving the lower lumbar spine. A broad shallow central protrusion in conjunction with facet degenerative change at L4-L5 causes moderate canal stenosis. Otherwise no canal compromise. There is mass effect on the traversing and foraminal segments of the nerve roots at L4-L5 and L5-S1 as described above Assessment & Plan Assessment & Plan (1) Right lumbar radiculitis: Code(s): M54.16 - Radiculopathy, lumbar region Category: Medical (2) Lumbar degenerative disc disease: Code(s): M51.36 - Other intervertebral disc degeneration, lumbar region Category: Medical (3) Lumbar spinal stenosis: Code(s): M48.061 - Spinal stenosis, lumbar region without neurogenic claudication Category: Medical Qualifiers: Neurogenic claudication status: without neurogenic claudication Qualified Code(s): M48.061 - Spinal stenosis, lumbar region without neurogenic claudication Plan Patient defers referral for injection or referral to neurosurgery. He prefers to maximize gabapentin to see if that would help. Increasing gabapentin to 200mg qhs. He prefers to take at night only. Discussed side effects to watch out for. Patient wants to follow up with orthopedics for the knee pain, related to WC injury. To be scheduled. Assessment and plan discussed with patient, and patient was agreeable. All questions were answered thoroughly. To follow up with me in 3 months for m edication (gabapentin) management. Sary Garcia MD, NOHEMI Board Certified, [place] Board of Physical Medicine and Rehabilitation (ABPMR) Board Certified, [place] Board of Electrodiagnostic Medicine (ABEM) Medications: Refilled gabapentin 100 mg PO BEDTIME 30 caps 3RF Coding Level of Care Code Est Pt Level 4 (28758) Diagnoses Right lumbar radiculitis M54.16 Lumbar degenerative disc disease M51.36 Spinal stenosis of lumbar region without neurogenic claudication M48.061 Neurogenic claudication status: without neurogenic claudication
== END 2024-04-25 11:36 | disposition home or self-care (01) ==
PROVIDERS: Visit Provider Physical Medicine & Rehabilitation
DX: M54.16 Radiculopathy, lumbar region (principal); M51.36 Other intervertebral disc degeneration, lumbar region; M48.061 Spinal stenosis, lumbar region without neurogenic claudication
CPT/HCPCS: 99214

== ENCOUNTER 2024-05-23 13:49 | Outpatient (AMB) | payer OTHER, SELFPAY ==
--- NOTE | 2024-05-23 13:50 | A.OFFVIS_ITS ---
Vital Signs 05/23/24 13:51 Height 5 ft 8 in Weight 185 lb BMI 28.1 Intake Visit Reasons: OV- Right Knee follow up WC Intake Note: Rishabh is a 64 year ols male that presents today with right knee pain on the front and back of his knee. He has been going to PT as scheduled, and takes Oxycodone for pain as needed. Artificial Inseminator Required: Yes Artificial Inseminator Language: Ticket Seller Name: Maxi Lazo [id number] Allergies No Known Allergies [No Known Allergies*] Allergy (Verified 05/23/24 13:56) Medication List - Last Reconciled 05/23/24 by Jim Ray PA-C atorvastatin 40 mg PO BEDTIME blood-glucose meter (FreeStyle [place] Lite kit) As directed celecoxib (Celebrex) 200 mg PO BID 30 days gabapentin 100 mg PO BEDTIME glipizide 10 mg PO DAILY lancets (TRUEplus Lancets) miscellaneous lidocaine 5% 1 patch topical DAILY metformin 500 mg PO BID metformin 1,000 mg PO sitagliptin phosphate (Januvia) 100 mg PO DAILY HPI HPI OV- Right Knee follow up WC: Details: 64-year-old male who returns to the office today with an heavy duty press operator for a follow-up of right knee. He reports he has tightness as well as pain at the front and back of his knee. His pain is aggravated throughout the day. He has been working on physical therapy as scheduled. He takes oxycodone and gabapentin for his pain as instructed. He has no other concerns today. 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 Tenderness along the calf muscle. No palpable defect. Full ROM with crepitus. Negative Jose?s. No ligamentous laxity. NVI. ? Assessment & Plan Assessment & Plan (1) Patellofemoral arthritis of right knee: Code(s): M17.11 - Unilateral primary osteoarthritis, right knee Category: Medical (2) Right knee sprain: Code(s): S83.91XA - Sprain of unspecified site of right knee, initial encounter Category: Medical Qualifiers: Encounter type: initial encounter Involved ligament of knee: unspecified ligament Qualified Code(s): S83.91XA - Sprain of unspecified site of right knee, initial encounter Plan We discussed referral to Dr. Cha for his back and I did discuss injection however he would like to hold off at this time. I recommend right knee injection or referral to pain management to discuss geniculate injection which he declined as well. If the symptoms with calf muscle related activities is not resolved, I recommend rest, modification of activities and therapy exercises are the baptiste. He does express understanding. I did give him a prescription of Celebrex to take twice a day for 2 weeks. Medications: New celecoxib (Celebrex) 200 mg PO BID 60 caps 3RF 30 days Patient Instructions: Scribed for Jim Ray PA-C, by Anibal Valencia medical communication specialist, on 05/23/2024 at 1:45 PM EST.? I, Jim Ray PA-C, have personally reviewed and agree with the information entered by the scribe. Coding Level of Care Code Est Pt Level 3 (02968) Complex EM visit Add On G2211 Diagnoses Patellofemoral arthritis of right knee M17.11 Sprain of right knee, unspecified ligament, initial encounter S83.91XA Encounter type: initial encounter Involved ligament of knee: unspecified ligament
[2024-05-23 13:51] VITALS: BMI 28.1
== END 2024-05-23 14:45 | disposition home or self-care (01) ==
PROVIDERS: Visit Provider Physician Assistant
DX: M17.11 Unilateral primary osteoarthritis, right knee (principal); S83.91XA Sprain of unspecified site of right knee, initial encounter
CPT/HCPCS: 99213; G2211

== ENCOUNTER → 2024-05-23 13:49 | Outpatient (BNVA) | payer OTHER, SELFPAY | PROVIDERS: Visit Provider Physician Assistant | DX: M17.11 Unilateral primary osteoarthritis, right knee (principal); S83.91XA Sprain of unspecified site of right knee, initial encounter | CPT/HCPCS: 99212 ==

== ENCOUNTER 2024-07-26 09:55 | Outpatient (AMB) | payer MEDICAID, SELFPAY ==
--- NOTE | 2024-07-26 10:00 | A.OFFVIS_ITS ---
Vital Signs 07/26/24 10:01 Height 5 ft 8 in Weight 185 lb BMI 28.1 Intake Visit Reasons: OV low back pain/sciatica-Follow up Intake Note: Rishabh is a 64 year old male who presents to the office today for a follow up evaluation of low back pain and sciatic pain. Patient reports the Gabapentin was offering him relief however he ran out of his prescriptions. He says over the last couple of days his pain has exacerbated due to not having his RX. Plant Operator/Shift Supervisor Required: Yes Plant Operator/Shift Supervisor Language: Core Driller Name: [id number] Allergies No Known Allergies [No Known Allergies*] Allergy (Verified 07/26/24 10:02) Medication List - Last Reconciled 07/26/24 by Sary Garcia MD atorvastatin 40 mg PO BEDTIME blood-glucose meter (FreeStyle [place] Lite kit) As directed celecoxib (Celebrex) 200 mg PO BID 30 days gabapentin 100 mg PO BEDTIME glipizide 10 mg PO DAILY lancets (TRUEplus Lancets) miscellaneous lidocaine 5% 1 patch topical DAILY metformin 500 mg PO BID metformin 1,000 mg PO sitagliptin phosphate (Januvia) 100 mg PO DAILY HPI Comments Details: Seen last April 2024: Lower back, across the lower back, described as cramping. Radiates down to right calf. There is some discomfort and numbness on right calf, not the foot. Denies bladder/bowel changes. MRI in 2021 as below. Moderate stenosis L4-5 and L5-S1, spondylosis. Last PT 3 months ago. No injections yet. Does not want to trial injections. Follows with orthopedics for knee pain. Patient defers referral for injection or referral to neurosurgery. He prefers to maximize gabapentin to see if that would help. Increased gabapentin to 200mg qhs. He prefers to take at night only Back pain is just ok , still shoots down the right. Constant unless he takes the medication. He says he had ran out of gabapentin. Denies side effects. 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 Patient was appropriately conversant and oriented. Good historian. Results Reviewed Results Reviewed: Ordering Physician: Samantha Davis NP Date of Service: 09/28/21 Procedure(s): MR lumbar spine wo con Accession Number(s): [id number] cc: Samantha Davis NP~ EXAMINATION: MR LUMBAR SPINE WITHOUT CONTRAST CLINICAL INFORMATION: Right lower extremity weakness. Foot drop. Evaluate for cauda equina. COMPARISON: Lumbar spine radiographs 09/28/2019. CT abdomen and pelvis 10/05/2019. TECHNIQUE: MRI of the lumbar spine was obtained using routine sequences without contrast. FINDINGS: Alignment is normal. Vertebral body heights are preserved. No acute bone marrow signal changes. There is disc desiccation at L4-L5 and L5-S1 without substantial loss of intervertebral disc height at either of these 2 levels. The tip of the conus medullaris is located at L2. No mass effect on the conus. Visualized distal cord signal intensity is normal. At L1-L2 there is a slightly bulging disc. No canal stenosis. No mass effect on the traversing or foraminal nerve roots. At L2-L3 there is a slightly bulging disc. No canal stenosis. No mass effect on the traversing or foraminal nerve roots. At L3-L4 there is a slightly bulging disc. No canal stenosis. No mass effect on the traversing or foraminal nerve roots. At L4-L5 there is a broad shallow central protrusion superimposed upon a bulging disc. Bilateral facet degenerative change. Moderate canal stenosis. Subarticular zone narrowing causes displacement and possible compression of both traversing L5 nerve roots. Mild compression of both L4 foraminal nerve roots. At L5-S1 there is an asymmetrically bulging disc to the right. Advanced bilateral facet degenerative change. Mild canal stenosis. Asymmetric narrowing of the right subarticular zone causes displacement and possible compression of the right traversing S1 nerve roots. Moderate compression of both L5 foraminal nerve roots, greater on the right. Limited visualization of the retroperitoneal anatomy reveals no abnormal finding. Psoas and paraspinal muscle groups are symmetric. MR/MR lumbar spine wo con IMPRESSION: There is multilevel degenerative spondylosis primarily involving the lower lumbar spine. A broad shallow central protrusion in conjunction with facet degenerative change at L4-L5 causes moderate canal stenosis. Otherwise no canal compromise. There is mass effect on the traversing and foraminal segments of the nerve roots at L4-L5 and L5-S1 as described above Assessment & Plan Assessment & Plan (1) Right lumbar radiculitis: Code(s): M54.16 - Radiculopathy, lumbar region Category: Medical (2) Lumbar degenerative disc disease: Code(s): M51.36 - Other intervertebral disc degeneration, lumbar region Category: Medical Qualifiers: Disc-related pain type: discogenic back pain and lower extremity pain Qualified Code(s): M51.362 - Other intervertebral disc degeneration, lumbar region with discogenic back pain and lower extremity pain (3) Lumbar spinal stenosis: Code(s): M48.061 - Spinal stenosis, lumbar region without neurogenic claudication Category: Medical Qualifiers: Neurogenic claudication status: without neurogenic claudication Qualified Code(s): M48.061 - Spinal stenosis, lumbar region without neurogenic claudication Plan Chronic back pain but controlled to a degree with gabapentin. Refill sent, continue 200mg qhs. Discussed side effects. He has also ran out of celebrex. Discussed possible group home side effects and patient decides to discontinue. He may rethink injections if pain becomes more severe, advised to call us or PCP so we can refer to pain management. Assessment and plan discussed with patient, and patient was agreeable. All questions were answered thoroughly. To follow up with me in 6 months for medication (gabapentin) management. Sary Garcia MD, NOHEMI Board Certified, [place] Board of Physical Medicine and Rehabilitation (ABPMR) Board Certified, [place] Board of Electrodiagnostic Medicine (ABEM) Medications: Changed From gabapentin 100 mg PO BEDTIME 30 caps 3RF To gabapentin 200 mg (2 x 100 mg) PO BEDTIME 30 caps 5RF Discontinued celecoxib (Celebrex) Discontinued Reason: Patient Completed Course 200 mg PO BID 30 days 60 caps 3RF Coding Level of Care Code Est Pt Level 4 (97889) Complex EM visit Add On G2211 Diagnoses Right lumbar radiculitis M54.16 Degeneration of intervertebral disc of lumbar region with discogenic back pain and lower extremity pain M51.362 Disc-related pain type: discogenic back pain and lower extremity pain Spinal stenosis of lumbar region without neurogenic claudication M48.061 Neurogenic claudication status: without neurogenic claudication
[2024-07-26 10:01] VITALS: BMI 28.1
== END 2024-07-26 10:34 | disposition home or self-care (01) ==
PROVIDERS: Visit Provider Physical Medicine & Rehabilitation
DX: M54.16 Radiculopathy, lumbar region (principal); M51.362 Other intervertebral disc degeneration, lumbar region with discogenic back pain and lower extremity pain; M48.061 Spinal stenosis, lumbar region without neurogenic claudication
CPT/HCPCS: 99214

== ENCOUNTER → 2024-07-26 09:55 | Outpatient (BNVA) | payer MEDICAID, SELFPAY | PROVIDERS: Visit Provider Physical Medicine & Rehabilitation | DX: M54.16 Radiculopathy, lumbar region (principal); M51.362 Other intervertebral disc degeneration, lumbar region with discogenic back pain and lower extremity pain; M48.061 Spinal stenosis, lumbar region without neurogenic claudication | CPT/HCPCS: 99212 ==

== ENCOUNTER 2024-09-13 09:44 | Emergency (ER) | payer SELFPAY ==
--- NOTE | ~2024-09-13 | XR_ITS ---
EXAMINATION: XR FOREARM 2 VIEWS RIGHT, XR ELBOW 3 VIEWS RIGHT HISTORY: pain/swelling COMPARISON: There are no prior studies available for comparison. FINDINGS: AP and lateral views of the right forearm and 2 additional views of the right elbow are submitted. Osseous mineralization is normal. There is no fracture or dislocation. The joint spaces are preserved. The soft tissues are unremarkable. There is no joint effusion. XR/XR forearm RT 2V IMPRESSION: Unremarkable examination of the right forearm and elbow. Electronically signed by: Chau Iverson MD 09/13/2024 10:32 AM [facility]
--- NOTE | ~2024-09-13 | XR_ITS ---
EXAMINATION: XR FOREARM 2 VIEWS RIGHT, XR ELBOW 3 VIEWS RIGHT HISTORY: pain/swelling COMPARISON: There are no prior studies available for comparison. FINDINGS: AP and lateral views of the right forearm and 2 additional views of the right elbow are submitted. Osseous mineralization is normal. There is no fracture or dislocation. The joint spaces are preserved. The soft tissues are unremarkable. There is no joint effusion. XR/XR elbow RT min 3V IMPRESSION: Unremarkable examination of the right forearm and elbow. Electronically signed by: Chau Iverson MD 09/13/2024 10:32 AM [facility]
--- NOTE | ~2024-09-13 | XR_ITS ---
EXAMINATION: XR RIBS 2 VIEWS LEFT HISTORY: fall/pain COMPARISON: Correlation is made with PA and lateral views of the chest dated 11/14/2023. FINDINGS: Four views of the left ribs are submitted. Osseous mineralization is normal. There is no fracture or lytic lesion. The visualized left lung is clear. XR/XR ribs LT 2V IMPRESSION: No evidence of fracture of the left ribs. Electronically signed by: Chau Iverson MD 09/13/2024 10:34 AM [facility]
[2024-09-13 09:55] VITALS: BP 170/90; PULSE 63; RESP 18; TEMP 36.5; O2SAT 100; BMI 28.1
--- NOTE | 2024-09-13 12:07 | MHC.EDTECH ---
Called patient from waiting room, no answer.
--- OUTSIDE RECORDS SUMMARY | 2024-09-13 16:22 | XMS_ITS | Encounter Summary ---
Author Organization [employer] [facility] Address [address] [facility] 7t [place] [address] Care Team Providers Care Rn Transitional Name Role Phone Delilah Laboy Primary Care Provider [phone] Encounter Details Date Type Department Care Team (Latest Contact Info) Description 05/09/2019 Abstract [facility] CONVERSIONS Dental, Provider, DDS Social History Tobacco Use Types Packs/Day Years Used Date Smoking Tobacco: Never Assessed Sex and Gender Information Value Date Recorded Sex Assigned at Male 06/14/2022 10:15 AM EDT Legal Sex Male 10:15 AM EDT Gender Identity Male 06/14/2022 10:15 AM EDT Sexual Orientation Straight 06/14/2022 10 :15 AM EDT documented as of this encounter Plan of Treatment Not on file documented as of this encounter Visit Diagnoses Not on filedocumented in this encounter Care Teams Rn Transitional Relationship Specialty Start Date End Date Delilah Laboy ANP [address] [place] [id number] PCP - General Family Medicine 09/19/20 documented as of this encounter
--- OUTSIDE RECORDS SUMMARY | 2024-09-13 16:22 | XMS_ITS | Encounter Summary ---
Author Organization [employer] [facility] Address [address] [place] [address] 7t [place] [address] Care Team Providers Care Sewer Digger Name Role Phone Delilah Laboy Primary Care Provider [phone] Reason for Visit * Reason Comments Med Refill Encounter Details Date Type Department Care Team (Late st Contact Info) Description 04/27/2023 Refill [facility] MEDICINE [address] [place], [place] [phone] Santiago Newman MD [address] [place], [place] [phone] Social History Tobacco Use Types Packs/Day Years Used Date Smoking Tobacco: Never Passive Smoke Exposure: Never Smokeless Tobacco: Never Alcohol Use Standard Drinks/Week Comments Yes 0 (1 standard drink = 0.6 oz pur e alcohol) socially Depression Answer Date Recorded Patient Health Questionnaire-2 Score 0 07/21/2022 Sex and Gender Information Value Date Recorded Sex Assigned at Male 06/14/2022 10:15 AM EDT Legal Sex Male 10:15 AM EDT Gender Identity Male 06/14/2022 10:15 AM EDT Sexual Orientation Straight 06/14/2022 10 :15 AM EDT documented as of this encounter Plan of Treatment Not on file documented as of this encounter Visit Diagnoses Not on filedocumented in this encounter Care Teams Sewer Digger Relationship Specialty Start Date End Date Delilah Laboy ANP [address] [place] [id number] PCP - General Family Medicine 09/19/20 documented as of this encounter
--- OUTSIDE RECORDS SUMMARY | 2024-09-13 16:22 | XMS_ITS | Encounter Summary ---
Author Organization [facility] [facility] Address [address] [facility] 7t [place] [address] Care Team Providers Care Tobacco Cloth Reclaimer Name Role Phone Delilah Laboy Primary Care Provider [phone] Encounter Details Date Type Department Care Team ([facility] st Contact Info) Description 08/13/2022 Orders Only [facility] [address] [place] [address] Delilah Laboy ANP 230 [place] [address] Social History Tobacco Use Types Packs/Day Years [...] Orientation Straight 06/14/2022 10 :15 AM EDT COVID-19 Exposure Response Date Recorded In the last 10 days, have yo u been in contact with someone who was confirmed or suspected to have Coronavirus/COVID-19? No / Unsure 07/21/2022 2:48 PM EST documented as of this encounter Plan of Treatment Not on file documented as of this encounter Visit Diagnoses Not on filedocumented in this encounter Care Teams Tobacco Cloth Reclaimer Relationship Specialty Start Date End Date Delilah Laboy ANP [address] [place] [id number] PCP - General Family Medicine 09/19/20 documented as of this encounter
--- OUTSIDE RECORDS SUMMARY | 2024-09-13 16:22 | XMS_ITS | Encounter Summary ---
Author Organization [employer] [facility] Address [address] [place] [address] 7t [place] [address] Care Team Providers Care Web Search Evaluator Name Role Phone Delilah Laboy Primary Care Provider [phone] Encounter Details Date Type Department Care Team (Late st Contact Info) Description 12/10/2022 Orders Only [facility] MEDICINE [address] [place] [address] Michelle Espinosa LPN Social History Tobacco Use Types Packs/Day Years [...] suspected to have Coronavirus/COVID-19? No / Unsure 11/11/2022 9:41 AM EDT documented as of this encounter Plan of Treatment Not on file documented as of this encounter Visit Diagnoses Not on filedocumented in this encounter Care Teams Web Search Evaluator Relationship Specialty Start Date End Date Delilah Laboy ANP [address] [place] [address] PCP - General Family Medicine 09/19/20 documented as of this encounter
--- OUTSIDE RECORDS SUMMARY | 2024-09-13 16:22 | XMS_ITS | Encounter Summary ---
Author Organization [employer] Address [address] [facility] 7t [place] [address] Care Team Providers Care Bunch Maker Hand Name Role Phone Delilah Laboy Primary Care Provider Reason for Visit * Reason Comments Med Refill Encounter Details Date Type Department Care Team ([facility] st Contact Info) Description 12/22/2023 Refill [facility] MEDICINE [address] [place], [place] [phone] Delilah Laboy ANP [address] [place] [address] Hyperlipidemia associated with type 2 diabetes mellitus (CMS/HCC) ([facility]/HCC) Social History Tobacco Use Types Packs/Day Years Used Date Smoking Tobacco: Never Passive Smoke Exposure: Never Smokeless Tobacco: Never Alcohol Use Standard Drinks/Week Comments Yes 0 (1 standard drink = 0.6 oz pur e alcohol) socially Depression Answer Date Recorded Patient Health Questionnaire-9 Score 0 12/22/2023 Patient Health Questionnaire-9 Score 0 12/22/2023 Last PHQ-9: Questionnaire Data Not on file 0 12/22/2023 Housing Stability Answer Date Recorded What is your housing situation today? I have sylvia jones 12/14/[address] you li ve. Do you have problems with any of the following? None of the above 12/14/2023 Food Insecurity Answer Date Recorded Within the past 12 months, y ou worried that your food would run out before you got money to buy more: Never True 12/14/2023 Within the past 12 months,th e food you bought just didn't last and you didn't have enough money to get more: Never True 08/2023 Transportation Answer Date Recorded In the past 12 months, has l ack of transportation kept you from medical appts, meetings, work or from getting things needed for daily living? No 12/14/2023 Utilities Answer Date Recorded In the past 12 months, has t he electric, gas, oil or water company threatened to shut off services in your home? No 12/14/2023 Depression Answer Date Recorded Patient Health Questionnaire-2 Score 0 12/22/2023 Sex and Gender Information Value Date Recorded Sex Assigned at Male 06/14/2022 10:15 AM EDT Legal Sex Male 10:15 AM EDT Gender Identity Male 06/14/2022 10:15 AM EDT Sexual Orientation Straight 06/14/2022 10 :15 AM EDT documented as of this encounter Plan of Treatment Not on file documented as of this encounter Visit Diagnoses Diagnosis Hyperlipidemia associated with type 2 diabetes mellitus (CMS/HCC) (CMS/HCC) documented in this encounter Additional Health Concerns Assessment Noted Time PHQ-9 Depression Total Score: 0 12/22/19 24 9:33 AM EDT documented as of this encounter Care Teams Bunch Maker Hand Relationship Specialty Start Date End Date Delilah Laboy ANP [address] [place] [address] PCP - General Family Medicine 09/19/20 documented as of this encounter
--- OUTSIDE RECORDS SUMMARY | 2024-09-13 16:22 | XMS_ITS | Encounter Summary ---
Author Organization [employer] [facility] Address [address] [facility] 7t [place] [address] Care Team Providers Care Chief Credit Officer Name Role Phone Delilah Laboy Primary Care Provider [phone] Reason for Visit * Reason Comments Med Refill Encounter Details Date Type Department Care Team ([facility] st Contact Info) Description 08/13/2022 Refill [facility] MEDICINE [address] [place] [address] Delilah Laboy ANP [address] [place] [address] Type 2 diabetes mellitus without complication, without long-term current use of insulin (CMS/HCC) (Primary Dx) Social History Tobacco Use Types Packs/Day Years [...] as of this encounter Visit Diagnoses Diagnosis Type 2 diabetes mellitus without complication, without long-term current use of insulin (CMS/HCC)- Primary documented in this encounter Care Teams Chief Credit Officer Relationship Specialty Start Date End Date Delilah Laboy ANP [address] [place] [address] PCP - General Family Medicine 09/19/20 documented as of this encounter
--- OUTSIDE RECORDS SUMMARY | 2024-09-13 16:22 | XMS_ITS | Encounter Summary ---
Author Organization [employer] Address [address] [facility] 7t [place] [address] Care Team Providers Care Power Line Lineman Name Role Phone Delilah Laboy Primary Care Provider [phone] Encounter Details Date Type Department Care Team ([facility] st Contact Info) Description 07/06/2023 Abstract [facility] MEDICINE [address] [place] [address] Delilah Laboy ANP [address] [place], [place] [phone] Social History Tobacco Use Types Packs/Day Years Used Date Smoking Tobacco: Never Passive Smoke Exposure: Never Smokeless Tobacco: Never Alcohol Use Standard Drinks/Week Comments Yes 0 (1 standard drink = 0.6 oz pur e alcohol) socially Housing Stability Answer Date Recorded What is your housing situation today? I have sylviagerald jones 06/23/[address] you li ve. Do you have problems with any of the following? None of the above 06/23/2023 Food Insecurity Answer Date Recorded Within the past 12 months, y ou worried that your food would run out before you got money to buy more: Never True 06/23/2023 Within the past 12 months,th e food you bought just didn't last and you didn't have enough money to get more: Never True 04/2023 Transportation Answer Date Recorded In the past 12 months, has l ack of transportation kept you from medical appts, meetings, work or from getting things needed for daily living? No 06/23/2023 Utilities Answer Date Recorded In the past 12 months, has t he electric, gas, oil or water company threatened to shut off services in your home? No 06/23/2023 Depression Answer Date Recorded Patient Health Questionnaire-2 [...] on filedocumented in this encounter Care Teams Power Line Lineman Relationship Specialty Start Date End Date Delilah Laboy ANP [address] [place] [address] PCP - General Family Medicine 09/19/20 documented as of this encounter
--- OUTSIDE RECORDS SUMMARY | 2024-09-13 16:22 | XMS_ITS | Clinical Summary ---
Author Organization [employer] Address [address] [facility] 7[address] [place] [address] Care Team Providers Care Chopper Feeder Name Role Phone Benoit Delilah SANCHEZ Primary Care Provider [phone] Allergies No known active allergies Medications lidocaine (Lidoderm) 5 % patch Place 1 patch on the skin at bed time. 1 Active SM Vitamin D3 50 MCG capsule TAKE 1 CAPSULE BY MOUTH EVERY DAY 90 capsule 3 3 Active metFORMIN (Glucophage) 1000 MG tablet TAKE 1 TABLET BY MOUTH TWICE DAILY WITH MEALS IN THE MORNING AND IN THE EVENING 180 tablet 3 3 Active atorvastatin (Lipitor) 40 MG tablet TAKE 1 TABLET BY MOUTH EVERY DAY AT BEDTIME FOR cholesterol 90 tablet 3 3 Active acetaminophen (Tylenol) 500 MG tablet take 1-2 tablet (1000MG) by oral route TID as needed; max. 6 tabs/24 hours 30 tablet 3 Active glipiZIDE XL (Glucotrol XL) 10 MG 24 hr tabletIndication s:Hyperlipidemia associated with type 2 diabetes mellitus (CMS/HCC) ([facility]) Take 2 tabs by mouth daily with breakfast 180 tablet 1 4 Active glucose blood (FREESTYLE LITE) test stripIndications :Type 2 diabetes mellitus without complication, without long-term current use of insulin ([facility]) TEST BLOOD SUGAR THREE TIMES DAILY 100 strip 2 4 Active TRUEplus Lancets 33G miscIndications: Type 2 diabetes mellitus without complication, without long-term current use of insulin ([facility]) Use to check BG TID and more as needed 100 each 11 4 Active Alcohol Swabs padsIndications: Hyperlipidemia associated with type 2 diabetes mellitus (CMS/HCC) ([facility]) 1 each if needed (to clean skin). 100 each 11 4 Active Blood Pressure kitIndications:E levated blood pressure reading without diagnosis of hypertension 1 kit Once per day. 1 kit 4 Active Active Problems Problem Noted Date Diagnosed Date Chronic pain of both shoulders 11/11/2022 Cervical radiculopathy at C6 11/11/2022 L4-L5 disc bulge 11/11/2022 Other spondylosis, lumbar region 11/11/2022 Plantar fasciitis of right foot 11/11/2022 Vitamin D deficiency 08/31/2018 Hyperlipidemia associated wi th type 2 diabetes mellitus ([facility]/HCC) 08/05/2015 Obesity 08/05/2015 Immunizations Name Administration Dates Next Due Hep B, adult 12/21/2016,11/07/2015,05/07/2015 [facility] SARS-CoV-2 Vaccination 10/29/2020 Pfizer Covid-19 Vaccine 12+ 07/28/2021 Tdap 11/07/2015 Social History Tobacco Use Types Packs/Day Years Used Date Smoking Tobacco: Never Passive Smoke Exposure: Never Smokeless Tobacco: Never Tobacco Cessation:Counseling Given: Not Answered Alcohol Use Standard Drinks/Week Comments Yes 0 [...] Orientation Straight 06/14/2022 10 :15 AM EDT Last Filed Vital Signs Vital Sign Reading Time Taken Comments Blood Pressure 122/80 03/23/2024 3:29 PM EDT Pulse 68 03/23/2024 3:29 PM EDT Temperature 36.3 ??C (97.4 ??F) 12/22/2023 9:32 AM ED T Respiratory Rate 20 12/22/2023 9:32 AM EDT Oxygen Saturation 98% 12/22/2023 9:32 AM EDT Inhaled Oxygen Concentration - - Weight 83.7 kg (184 lb 9.6 oz) 12/22/2023 9:32 A M EDT Height 172.7 cm (5' 8 ) 12/22/2023 9:32 AM EDT Body Mass Index 28.07 12/22/2023 9:32 AM EDT Plan of Treatment Health Maintenance Due Date Last Done Comments CT Colonography 1960 Colonoscopy 1960 FIT 1960 FOBT 1960 Sigmoidoscopy 1960 Pneumococcal Vaccine: Pediatrics (0 to 5 Years) and At-Risk Patients (6 to 49) Years) (1 of 2 - PCV) 1966 Diabetes: Foot Exam 1970 Eye Exam 1970 Alcohol/Substance Use Screening 1972 Zoster Vaccines (1 of 2) 2010 COVID-19 Vaccine (3 - season) 2024 07/28/2021, 10/29/2020 Influenza Vaccine (#1) 2024 Diabetes: Hemoglobin A1C 07/25/2024 024, 12/22/2023, 11/11/2022, Additional history exists SDOH Screening 12/13/2024 12/14/2023 Depression Screening 12/21/2024 12/22/2023, 12/22/19 Tobacco Screening 03/23/2025 03/23/2024 Diabetes: Urine Protein Screening 04/25/2025 04/25/2024, 08/12/2020 Lipid Panel 04/25/2025 04/25/2024, 1203/2022, 05/01/2020 DTaP/Tdap/Td Vaccines (2 - Td or Tdap) 11/06/2025 11/07/2015 Colorectal Cancer Screening 11/07/2026 FIT DNA/Cologuard 11/07/2026 11/08/2023 RSV Patients and Patients Aged 60 years or older (1 - 1-dose 75+ series) 2035 Hepatitis B Vaccines Completed 12/21/2016, 11/07/2015, 05/07/2015 HIV Screening Completed 07/22/2022 Hepatitis C Screening Completed 07/22/2022 HIB Vaccines Aged Out No longer eligi ble based on patient's age to complete this topic HPV Vaccines Aged Out No longer eligi ble based on patient's age to complete this topic Hepatitis A Vaccines Aged Out No long er eligible based on patient's age to complete this topic IPV Vaccines Aged Out No longer eligi ble based on patient's age to complete this topic Meningococcal Vaccine Aged Out No albert ayanna eligible based on patient's age to complete this topic RSV under 20 months Aged Out No longe r eligible based on patient's age to complete this topic Rotavirus Vaccines Aged Out No longer eligible based on patient's age to complete this topic Procedures Procedure Name Priority Date/Time Associated Diagnosis Comments ALBUMIN, RANDOM URINE W/CREATININE Routine 04/25/2024 9:40 AM EDT Hyperlipidemia associated with type 2 diabetes mellitus (CMS/HCC) (CMS/HCC) HEMOGLOBIN A1C Routine 04/25/2024 9:24 AM EDT Hyperlipidemia associated with type 2 diabetes mellitus (CMS/HCC) (CMS/HCC) LIPID PANEL, STANDARD Routine 04/25/2024 9:24 AM EDT Hyperlipidemia associated with type 2 diabetes mellitus (CMS/HCC) (CMS/HCC) LAB COLOGUARD?? COLON CANCER SCREEN Routine 11/08/2023 6:00 AM EDT Screening for malignant neoplasm of colon HEPATITIS C AB W/REFL TO HCV RNA, QN, PCR Routine 07/22/2022 8:20 AM EST Screening for STD (sexually transmitted disease) HIV 1/2 ANTIGEN/ANTIBODY, FOURTH GENERATION W/RFL Routine 07/22/2022 8:20 AM EST from Last 3 Months or Most Recently Relevant to Health Maintenance Results * Albumin, Random Urine W/Creatinine (04/25/2024 9:40 AM EDT) Creatinine, Urine 67.07 mg/dL [facility] Microalbumin Urine <5.0 mg/L [facility] Microalbum Creatinine Ratio Ur TNP <30 ug/mg cr [facility] Comment:Unable to calculate albumin/creatinine ratio due to lowmicroalbumin or creatinine result. Urine (Urine, Random) 04/25/2024 9:40 AM EDT 04/25/2024 11:29 AM EDT Delilah SANCHEZ LAB URINE ORDERABLES Final Resul t [facility] [address] [place] [phone] * (ABNORMAL) Hemoglobin A1c (04/25/2024 9:24 AM EDT) Hemoglobin A1c 10.7(H) <6.0 % [facility] Comment:Hemoglobin A1C Refer ence Range Adults: 4.8 - 6.0 % Non diabetic: < 6.0 % Goal: < 7.0 %Additional Action Suggested: > 8.0 %Note: Hemoglobin A1c results are invalid for patients with abnormal amounts of HbF. Blood transfusions may impact the HbA1c concentration in the patient sample. Estimated Average Glucose 260 mg/dL [facility] Comment:eAG = Estimated ave rage glucose which is %A1C expressed asaverage glucose, using the formula of the [id number] Glucose study (ADAG), Diabetes Care, Vol.31,#8,Mar. 2007 Blood Venous blood specimen / Unknown 04/25/2024 9:24 AM EDT 04/25/2024 11:20 AM EDT Delilah Laboy ANP LAB BLOOD ORDERABLES Final Resul t Performing Organization Address [facility] de Phone Number [facility] [address] [place] [phone] * (ABNORMAL) Lipid Panel, Standard (04/25/2024 9:24 AM EDT) Triglycerides 80 <150 mg/dL [facility] Comment:Desirable Triglyceri de: less than 150 mg/dLBorderline High Triglyceride 150-199 mg/dLHigh Triglyceride: 200-499 mg/dLVery High Triglyceride: greater than or equal to 5OO mg/dL Cholesterol 206(H) <200 mg/dL [facility] Comment:Desirable Cholestero l: less than 200 mg/dLBorderline High Cholesterol: 200-239 mg/dLHigh Cholesterol: greater than 239 mg/dL LDL Cholesterol Calculated 136(H) <100 mg/dL [facility] Comment:Desirable LDL: less than 100 mg/dLNear Optimal/Above Optimal LDL: 110- 129 mg/dLBorderline High LDL: 130-159 mg/dLHigh LDL: 160-189 mg/dLVery High LDL: greater than or equal to 190 mg/dL HDL Cholesterol 54 >40 mg/dL [facility] Comment:Desirable HDL: great er than 40 mg/dL Note: This HDL assay may give artificially low results in patients with liver disease. Blood Venous blood specimen / Unknown 04/25/2024 9:24 AM EDT 04/25/2024 11:20 AM EDT Delilah Laboy ANP LAB BLOOD ORDERABLES Final Resul t Performing Organization Address [facility] Co de Phone Number [facility] [address] [place] [phone] * Cologuard?? colon cancer screening (11/08/2023 6:00 AM EDT) Cologuard Result Negative Negative 11/15/19 5:03 PM EDT [facility] (CLIA #:[id number]) Comment: NEGATIVE TEST RESULT. A negative Cologuard result indicates a low likelihood that a colorectal cancer (CRC) or advanced adenoma (adenomatous polyps with more advanced pre-malignant features) ??is present. The chance that a person with a negative Cologuard test has a colorectal cancer is less than 1 in 1500 (negative predictive value >99.9%) or has an ??advanced adenoma is less than ??5.3% (negative predictive value 94.7%). These data are based on a prospective cross-sectional study of 10,000 individuals at average risk for colorectal cancer who were screened with both Cologuard and colonoscopy. (Jamie Reynaga et al, N Engl J Med 2014;370(14):1286- 1297) The normal value (reference range) for this assay is negative. COLOGUARD RE-SCREENING RECOMMENDATION: Periodic colorectal cancer screening is an important part of preventive healthcare for asymptomatic individuals at average risk for colorectal cancer. ??Following a negative Cologuard result, the [employer] Society and U.S. Multi-Society Task Force screening guidelines recommend a Cologuard re-screening interval of 3 years. References: [employer] Guideline for Colorectal Cancer Screening: https://www.cancer.org/cancer/awnwi-bmquwe-jbjqxc/rmexkkbuq-mwfrpzxhu-owrnixj/ac s-rec ommendations.html.; Daren JEFFERS, Bakari CR, Ari JeronimoK, Colorectal Cancer Screening: Recommendations for Physicians and Patients from the U.S. Multi-Society Task Force on Colorectal Cancer Screening , Am J Gastroenterology 2017; 112:0289-8485. TEST DESCRIPTION: Composite algorithmic analysis of stool DNA-biomarkers with hemoglobin immunoassay. ?? Quantitative values of individual biomarkers are not reportable and are not associated with individual biomarker result reference ranges. Cologuard is intended for colorectal cancer screening of adults of either sex, 45 years or older, who are at average-risk for colorectal cancer (CRC). Cologuard has been approved for use by the U.S. FDA. The performance of Cologuard was established in a cross sectional study of average-risk adults aged 50-84. Cologuard performance in patients ages 45 to 49 years was estimated by sub-group analysis of near-age groups. Colonoscopies performed for a positive result may find as the most clinically significant lesion: colorectal cancer [4.0%], advanced adenoma (including sessile serrated polyps greater than or equal to 1cm diameter) [20%] or non- advanced adenoma [31%]; or no colorectal neoplasia [45%]. These estimates are derived from a prospective cross-sectional screening study of 10,000 individuals at average risk for colorectal cancer who were screened with both Cologuard and colonoscopy. (Jamie Reynaga et al, N Engl J Med 2014;370(14):6824-5014.) Cologuard may produce a false negative or false positive result (no colorectal cancer or precancerous polyp present at colonoscopy follow up). A negative Cologuard test result does not guarantee the absence of CRC or advanced adenoma (pre-cancer). The current Cologuard screening interval is every 3 years. ([employer] and U.S. Multi-Society Task Force). Cologuard performance data in a 10,000 patient pivotal study using colonoscopy as the reference method can be accessed at the following location: www.[employer]results. Additional description of the Cologuard test process, warnings and precautions can be found at www.cologuard.com. Stool specimen (specimen) 11/08/2023 6:00 AM EDT 11/10/2023 1:46 PM EDT [facility] LAB MOLECULAR DIAGNOSTICS ORDERA BLES Final Result [facility] (CLIA #:[id number]) [place] [address], * Hepatitis C Antibody with Reflex to HCV, RNA, Quantitative, Real-Time PCR (07/22/2022 8:20 AM EST) Hepatitis C Antibody NON-REACT KISHOR NON-REACT KISHOR [email or web address] Index 0.05 <1.00 [email or web address] Comment: HCV antibody was non-reactive. There is no laboratory evidence of HCV infection. In most cases, no further action is required. However, if recent HCV exposure is suspected, a test for HCV RNA (test code 94357) is suggested. For additional information please refer to http://MtoV.Moku/faq/HZR19j4 (This link is being provided for informational/ educational purposes only.) Blood Venous blood specimen / Unknown 07/22/2022 8:20 AM EST 07/22/2022 8:21 AM EST Narrative [facility] - 07/28/2022 10:50 PM EST FASTING:YES FASTING: YES [facility] LAB BLOOD ORDERABLES Final Resul t [facility] [address], [place] [address] [facility] [place] [facility] [address], [place] [address] * HIV-1/2 Antigen and Antibodies, Fourth Generation, with Reflexes (07/22/2022 8:20 AM EST) HIV Antigen/Antibody, 4th Generation NON-REAC TIVE NON-REAC TIVE [facility] Comment: HIV-1 antigen and HIV-1/HIV-2 antibodies were not detected. There is no laboratory evidence of HIV infection. PLEASE NOTE: This information has been disclosed to you from records whose confidentiality may be protected by state law. ??If your state requires such protection, then the state law prohibits you from making any further disclosure of the information without the specific written consent of the person to whom it pertains, or as otherwise permitted by law. A general authorization for the release of medical or other information is NOT sufficient for this purpose. ?? For additional information please refer to http://MtoV.Moku/faq/VWG414 (This link is being provided for informational/ educational purposes only.) The performance of this assay has not been clinically validated in patients less than 2 years old. 07/22/2022 8:20 AM EST 07/22/2022 8:21 AM EST Narrative [facility] - 07/28/2022 10:50 PM EST FASTING:YES FASTING: YES Delilah SANCHEZ LAB BLOOD ORDERABLES Final Resul t [facility] [address], [place] [address] [facility] [address], [place] [address] from Last 3 Months or Most Recently Relevant to Health Maintenance [place] [address] [place] [address] [employer] Care Teams Chopper Feeder Relationship Specialty Start Date End Date Delilah Laboy ANP [address] [place] [phone] PCP - General Family Medicine 09/19/20
--- OUTSIDE RECORDS SUMMARY | 2024-09-13 16:22 | XMS_ITS | Encounter Summary ---
Author Organization [facility] Address [address] [facility] 7t [place] [address] Care Team Providers Care Lpn Per Diem Name Role Phone Delilah Laboy Primary Care Provider [phone] Encounter Details Date Type Department Care Team (Latest Contact Info) Description 10/12/2021 Abstract [facility] CONVERSIONS Dental, Provider, DDS Social History Tobacco [...] on filedocumented in this encounter Care Teams Lpn Per Diem Relationship Specialty Start Date End Date Delilah Laboy ANP [address] [place] [phone] PCP - General Family Medicine 09/19/20 documented as of this encounter
--- OUTSIDE RECORDS SUMMARY | 2024-09-13 16:22 | XMS_ITS | Encounter Summary ---
Author Organization [employer] Address [address] [facility] 7t [place] [address] Care Team Providers Care Bill Recapitulation Clerk Name Role Phone Delilah Laboy Primary Care Provider [phone] Encounter Details Date Type Department Care Team ([facility] st Contact Info) Description 07/06/2023 Abstract [facility] [address] [place] [phone] Delilah Laboy ANP [address] [place], [place] [phone] Social History Tobacco Use Types Packs/Day Years [...] on filedocumented in this encounter Care Teams Bill Recapitulation Clerk Relationship Specialty Start Date End Date Delilah Laboy ANP [address] [place] [phone] PCP - General Family Medicine 09/19/20 documented as of this encounter
== END 2024-09-13 12:33 | disposition left against medical advice (07) ==
LOC: HO.ED 12:33
PROVIDERS: Emergency Provider Emergency Medicine
DX: M79.601 Pain in right arm (principal); Z53.21 Procedure and treatment not carried out due to patient leaving prior to being seen by health care provider
CPT/HCPCS: 71100; 73080; 73090; 99281

== ENCOUNTER → 2024-09-13 10:15 | Outpatient (BNV) | payer SELFPAY | PROVIDERS: Visit Provider Radiology Diagnostic Radiology | DX: R52 Pain, unspecified (principal); W19.XXXA Unspecified fall, initial encounter; M79.89 Other specified soft tissue disorders | CPT/HCPCS: 71100; 73080; 73090 ==

== ENCOUNTER 2024-11-19 09:41 | Outpatient (REF) | payer MEDICAID, SELFPAY ==
--- OUTSIDE RECORDS SUMMARY | 2024-11-19 11:08 | XMS_ITS | Clinical Summary ---
Author Organization [employer] Address [address] [facility] 7t [place] [address] Care Team Providers Care Data Science And Iot Manager Name Role Phone Delilah Laboy DANIEL Primary Care Provider [phone] Allergies No known active allergies Medications lidocaine (Lidoderm) 5 % patch Place 1 patch on the skin at bed time. 05/12/20 21 Active SM Vitamin D3 50 MCG capsule TAKE 1 CAPSULE BY MOUTH EVERY DAY 90 capsule 3 04/29/20 23 Active Additional Information Patient not taking.Reported on 11/19/2024 acetaminophen (Tylenol) 500 MG tablet take 1-2 tablet (1000MG) by oral route TID as needed; max. 6 tabs/24 hours 30 tablet 04/29/20 23 Active glucose blood (FREESTYLE LITE) test stripIndication s:Type 2 diabetes mellitus without complication, without long-term current use of insulin ([facility]) TEST BLOOD SUGAR THREE TIMES DAILY 100 strip 2 12/22/19 24 Active TRUEplus Lancets 33G miscIndications :Type 2 diabetes mellitus without complication, without long-term current use of insulin (CMS/HCC) Use to check BG TID and more as needed 100 each 11 12/22/19 24 Active Alcohol Swabs padsIndications :Hyperlipidemia associated with type 2 diabetes mellitus (CMS/HCC) 1 each if needed (to clean skin). 100 each 11 12/22/19 24 Active Blood Pressure kitIndications: Elevated blood pressure reading without diagnosis of hypertension 1 kit Once per day. 1 kit 12/22/19 24 Active atorvastatin (Lipitor) 40 MG tabletIndicatio ns:Hyperlipidem ia associated with type 2 diabetes mellitus (CMS/HCC) Take 1 tablet (40 mg) by mouth Once per day. 90 tablet 3 11/10/19 25 Active glipiZIDE XL (Glucotrol XL) 10 MG 24 hr tabletIndicatio ns:Hyperlipidem ia associated with type 2 diabetes mellitus (CMS/HCC) Take 2 tabs by mouth daily with breakfast 180 tablet 1 11/10/19 25 Active metFORMIN (Glucophage) 1000 MG tabletIndicatio ns:Hyperlipidem ia associated with type 2 diabetes mellitus (CMS/HCC) Take 1 tablet (1,000 mg) by mouth with breakfast and with evening meal. 180 tablet 3 11/10/19 25 Active Diclofenac Sodium (Voltaren) 1 % gelIndications: Polyarthralgia Apply up to 4x/d to affected joint(s) for pain/swelling 100 g 2 11/10/19 25 Active metFORMIN (Glucophage) 1000 MG tablet TAKE 1 TABLET BY MOUTH TWICE DAILY WITH MEALS IN THE MORNING AND IN THE EVENING 180 tablet 3 04/29/20 23 2024 Discontinued(R eorder (will not trigger notification to Pharmacy)) atorvastatin (Lipitor) 40 MG tablet TAKE 1 TABLET BY MOUTH EVERY DAY AT BEDTIME FOR cholesterol 90 tablet 3 04/29/20 23 2024 Discontinued(R eorder (will not trigger notification to Pharmacy)) glipiZIDE XL (Glucotrol XL) 10 MG 24 hr tabletIndicatio ns:Hyperlipidem ia associated with type 2 diabetes mellitus (CMS/HCC) Take 2 tabs by mouth daily with breakfast 180 tablet 1 12/22/19 24 2024 Discontinued(R eorder (will not trigger notification to Pharmacy)) Active Problems Problem Noted Date Diagnosed Date Screening for malignant neoplasm of colon 2024 Overview (11/09/2024): Cologuard negative 10/2023 Chronic pain of both shoulders 11/11/2022 Cervical radiculopathy at C6 11/11/2022 L4-L5 disc bulge 11/11/2022 Other spondylosis, lumbar region 11/11/2022 Plantar fasciitis of right foot 11/11/2022 Vitamin D deficiency 08/31/2018 Hyperlipidemia associated with type 2 diabetes [place] 08/05/2015 Obesity 08/05/2015 Encounters Date Type Department Care Team Description 11/19/2024 8:00 AM EDT Office Visit [facility] ADULT DENTAL [address] [place] [address] Paredes, Saskia 11/09/2024 2:15 PM EDT Office Visit [facility] MEDICINE [address] [place] [address] Delilah Laboy ANP Hyperlipidemia associated with type 2 diabetes mellitus (CMS/HCC) (CMS/HCC) (Primary Dx); Polyarthralgia; Screening PSA (prostate specific antigen); Screening for malignant neoplasm of colon 11/09/2024 Travel 11/08/2024 Telephone [facility] MEDICINE [address] [place] [address] Delilah Laboy ANP Insurance from Last 3 Months Immunizations Name Administration Dates Next Due Hep B, adult 12/21/2016,11/07/2015,05/07/2015 [facility] SARS-CoV-2 Vaccination 10/29/2020 Pfizer Covid-19 Vaccine 12+ [...] Sign Reading Time Taken Comments Blood Pressure 144/86 11/19/2024 8:10 AM EDT Pulse 91 11/09/2024 2:12 PM EDT Temperature 36.2 ??C (97.2 ??F) 11/09/2024 2:12 PM ED T Respiratory Rate 14 11/09/2024 2:12 PM EDT Oxygen Saturation 98% 11/09/2024 2:12 PM EDT Inhaled Oxygen Concentration - - Weight 81.8 kg (180 lb 6.4 oz) 11/09/2024 2:12 P M EDT Height 172.7 cm (5' 8 ) 12/22/2023 9:32 AM EDT Body Mass Index 27.43 12/22/2023 9:32 AM EDT Plan of Treatment Upcoming Encounters Date Type Department Care Team (Late st Contact Info) Description 12/26/2024 3:00 PM EDT Office Visit [facility] ADULT DENTAL [address] [place] [address] Marianna Carney DDS [address] [place] [address] 12/27/2024 9:30 AM EDT Office Visit [facility] MEDICINE [address] [place] [address] Delilah Laboy ANP [address] [place] [address] 05/23/2025 3:00 PM EDT Office Visit [facility] ADULT DENTAL [address] [place] [address] Saskia Paredes Health Maintenance Due Date Last Done Comments CT Colonography 1960 Colonoscopy 1960 FIT 1960 FOBT 1960 Sigmoidoscopy 1960 Diabetes: Foot Exam 1970 Eye Exam 1970 Alcohol/Substance Use Screening 1972 Pneumococcal Vaccine: 50+ Years (1 of 2 - PCV) 1979 Zoster Vaccines (1 of 2) 2010 Dental Oral Exam 04/12/2022 10/12/2021, , 06/17/2017, Additional history exists Dental X-Ray: Bitewings 10/13/2022 10/12/19 22, 07/12/2018, 04/29/2015, Additional history exists Dental Prophylaxis 01/11/2023 07/13/2022, 0 10/12/2021, 05/09/2019, Additional history exists COVID-19 Vaccine ( season) 2024 07/28/2021, 10/29/2020 Influenza Vaccine (#1) 2024 Dental X-Ray: Full Mouth 10/13/2024 10/12/2021 SDOH Screening 12/13/2024 12/14/2023 Depression Screening 12/21/2024 12/22/2023, 12/22/19 24 Diabetes: Hemoglobin A1C 02/09/2025 025, 04/25/2024, 12/22/2023, Additional history exists Diabetes: Urine Protein Screening 04/25/2025 04/25/2024, 08/12/2020 Lipid Panel 04/25/2025 04/25/2024, 12/03/2022, 05/01/2020 DTaP/Tdap/Td Vaccines (2 - Td or Tdap) 11/06/2025 11/07/2015 Tobacco Screening 11/19/2025 11/19/2024 Colorectal Cancer Screening 11/07/2026 FIT DNA/Cologuard 11/07/2026 [...] Procedure Name Priority Date/Time Associated Diagnosis Comments POCT GLYCATED HEMOGLOBIN, TOTAL Routine 11/09/2024 2:15 PM EDT Hyperlipidemia associated with type 2 diabetes mellitus (CMS/HCC) (CMS/HCC) POCT GLUCOSE Routine 11/09/2024 2:14 PM EDT Hyperlipidemia associated with type 2 diabetes mellitus (CMS/HCC) (CMS/HCC) ALBUMIN, RANDOM URINE W/CREATININE Routine 04/25/2024 9:40 [...] GENERATION W/RFL Routine 07/22/2022 8:20 AM EST PROPHYLAXIS - ADULT Routine 07/13/2022 1 2:00 AM EST INTRAORAL - COMPLETE SERIES OF RADIOGRAPHIC IMAGES Routine 10/12/2021 12:00 AM EST PERIODIC ORAL EVALUATION - ESTABLISHED PATIENT Routine 10/12/2021 12:00 AM EST from Last 3 Months or Most Recently Relevant to Health Maintenance Results * (ABNORMAL) POCT HGB A1C (11/09/2024 2:15 PM EDT) Hemoglobin A1C 11.7(A) 4.0 - 6.0 % QC Media Lot # [id number] Lot# Expiration Date Blood 11/09/2024 2:15 PM EDT Delilah Laboy ANP POINT OF CARE TEST ENTER/EDIT OR DERABLES Final Result * (ABNORMAL) POCT Glucose (11/09/2024 2:14 PM EDT) Pathologist [facility] Glucose Blood, POC 310(A) 60 - 200 mg/dL QC Media Lot # [id number] Lot# Expiration Date Blood Capillary blood specimen / Unknown 11/09/2024 2:14 PM EDT us Delilah Laboy ANP POINT OF CARE TEST ENTER/EDIT OR DERABLES Edited Result - Final * Albumin, Random Urine W/Creatinine (04/25/2024 9:40 AM EDT) Pathologist [facility] Creatinine, Urine 67.07 mg/dL [facility] Microalbumin Urine <5.0 mg/L [facility] Microalbum Creatinine Ratio Ur TNP <30 ug/mg cr [facility] Comment:Unable to calculate albumin/creatinine ratio due to lowmicroalbumin or creatinine result. Urine (Urine, Random) 04/25/2024 9:40 AM EDT 04/25/2024 11:29 AM EDT us Delilah Laboy ANP LAB URINE ORDERABLES Final Resul t [facility] [address] [place] [phone] * (ABNORMAL) Lipid Panel, Standard (04/25/2024 9:24 AM EDT) Triglycerides 80 <150 mg/dL [facility] Comment:Desirable Triglyceri de: less than 150 mg/dLBorderline High Triglyceride 150-199 mg/dLHigh Triglyceride: 200-499 mg/dLVery High Triglyceride: greater than or equal to 5OO mg/dL Cholesterol 206(H) <200 mg/dL [facility] Comment:Desirable Cholestero l: less than 200 mg/dLBorderline High Cholesterol: 200-239 mg/dLHigh Cholesterol: greater than 239 mg/dL LDL Cholesterol Calculated 136(H) <100 mg/dL [facility] Comment:Desirable LDL: less than 100 mg/dLNear Optimal/Above Optimal LDL: 110- 129 mg/dLBorderline High LDL: 130-159 mg/dLHigh LDL: 160-189 mg/dLVery High LDL: greater than or equal to 190 mg/dL HDL Cholesterol 54 >40 mg/dL [facility] Comment:Desirable HDL: great er than 40 mg/dL Note: This HDL assay may give artificially low results in patients with liver disease. Blood Venous blood specimen / Unknown 04/25/2024 9:24 AM EDT 04/25/2024 11:20 AM EDT [facility] LAB BLOOD ORDERABLES Final Resul t [facility] [address] [place] [phone] * Cologuard?? colon cancer screening (11/08/2023 6:00 AM EDT) Cologuard Result Negative Negative 11/15/19 5:03 PM EDT [employer] (CLIA #:[id number]) Comment: NEGATIVE TEST RESULT. A negative Cologuard [...] screened with both Cologuard and colonoscopy. (Jamie Roa al, N Engl J Med 2014;370(14):1286- 1297) The normal value (reference range) for this assay is negative. COLOGUARD RE-SCREENING RECOMMENDATION: Periodic colorectal cancer screening is an important part of preventive healthcare for asymptomatic individuals at average risk for colorectal cancer. ??Following a negative Cologuard result, the [place] Cancer Society and U.S. Multi-Society Task Force screening guidelines recommend a Cologuard re-screening interval of 3 years. References: [place] [employer] Society Guideline for Colorectal Cancer Screening: https://www.cancer.org/cancer/qfgli-fdllkn-hdlqzt/xwohttuvx-wkclurmra-bcsyatb/ac s-rec ommendations.html.; Daren JEFFERS, Bakari AQUINO, Ari JeronimoK, Colorectal Cancer Screening: Recommendations for Physicians and Patients from the U.S. Multi-Society Task Force on Colorectal Cancer Screening , Am J Gastroenterology 2017; 112:3102-2872. TEST DESCRIPTION: Composite algorithmic analysis of stool [...] Reynaga et al, N Engl J Med 2014;370(14):0204-2667.) Cologuard may produce a false negative or false positive result (no colorectal cancer or precancerous polyp present at colonoscopy follow up). A negative Cologuard test result does not guarantee the absence of CRC or advanced adenoma (pre-cancer). The current Cologuard screening interval is every 3 years. ([place] Cancer Society and U.S. Multi-Society Task Force). Cologuard performance data in a 10,000 patient pivotal study using colonoscopy as the reference method can be accessed at the following location: www.[employer]/results. Additional description of the Cologuard test process, warnings and precautions can be found at www.[employer] Of [employer] Monthrd.ScaleBase. Stool specimen (specimen) 11/08/2023 6:00 AM EDT 11/10/2023 1:46 PM EDT [facility] MOLECULAR DIAGNOSTICS ORDERA BLES Final Result [employer] (CLIA #:[id number]) [place] [address], * Hepatitis C Antibody with Reflex to HCV, RNA, Quantitative, Real-Time PCR (07/22/2022 8:20 AM EST) Hepatitis C Antibody NON-REACT KISHOR NON-REACT KISHOR [employer] Index 0.05 <1.00 [employer] Comment: HCV antibody was non-reactive. There is no laboratory evidence of HCV infection. In most cases, no further action is required. However, if recent HCV exposure is suspected, a test for HCV RNA (test code 96261) is suggested. For additional information please refer to http://education.[employer]/faq/IQZ84g3 (This link is being provided for informational/ educational purposes only.) Blood Venous blood specimen / Unknown 07/22/2022 8:20 AM EST 07/22/2022 8:21 AM EST Narrative [facility] - 07/28/2022 10:50 PM EST FASTING:YES FASTING: YES us Delilah Laboy [facility] LAB BLOOD ORDERABLES Final Resul t [facility] [address], [place] [address] [employer] [place] [employer] [address], [facility] [place] [address] * HIV-1/2 Antigen and Antibodies, Fourth Generation, with Reflexes (07/22/2022 8:20 AM EST) HIV Antigen/Antibody, 4th Generation NON-REAC TIVE NON-REAC TIVE [facility] [place] [facility] Comment: HIV-1 antigen and HIV-1/HIV-2 antibodies were [...] ?? For additional information please refer to http://education.[employer]ir.ScaleBase/faq/LOH331 (This link is being provided for informational/ educational purposes only.) The performance of this assay has not been clinically validated in patients less than 2 years old. 07/22/2022 8:20 AM EST 07/22/2022 8:21 AM EST Narrative [facility] - 07/28/2022 10:50 PM EST FASTING:YES FASTING: YES us Delilah Laboy [facility] LAB BLOOD ORDERABLES Final Resul t [facility] [address], [place] [address] [employer] [place] [employer] [address], [facility] [place] [address] from Last 3 Months or Most Recently Relevant to Health Maintenance Insurance [employer] DENTAL - HSN PARTIAL (MEDICAID) Care Teams Data Science And Iot Manager Relationship Specialty Start Date End Date Delilah Laboy ANP [address] [place] [phone] PCP - General Family Medicine 09/19/20
--- OUTSIDE RECORDS SUMMARY | 2024-11-19 11:08 | XMS_ITS | Encounter Summary ---
Author Organization [facility] Address [address] [facility] 7t [place] [address] Care Team Providers Care Duck Farmer Name Role Phone Delilah Laboy DANIEL Primary Care Provider [phone] Reason for Visit * Reason Comments Med Refill Encounter Details Date Type Department Care Team (Late st Contact Info) Description 04/27/2023 Refill [facility] MEDICINE [address] [place] [address] Santiago Newman MD [address] [place] [address] Social History Tobacco Use Types Packs/Day Years [...] as of this encounter Plan of Treatment Upcoming Encounters Date Type Department Care Team (Late st Contact Info) Description 12/26/2024 3:00 PM EDT Office Visit [facility] ADULT DENTAL [address] [place] [address] Marianna Carney DDS [address] [place], [place] [phone] 12/27/2024 9:30 AM EDT Office Visit [facility] MEDICINE [address] [place] [address] Delilah Laboy ANP [address] [place] [address] 05/23/2025 3:00 PM EDT Office Visit [facility] ADULT DENTAL [address] [place] [address] Saskia Paredes documented as of this encounter Visit Diagnoses Not on filedocumented in this encounter Care Teams Duck Farmer Relationship Specialty Start Date End Date Delilah Laboy ANP [address] [place] [address] PCP - General Family Medicine 09/19/20 documented as of this encounter
--- OUTSIDE RECORDS SUMMARY | 2024-11-19 11:08 | XMS_ITS | Encounter Summary ---
Author Organization [facility] Address [address] [facility] 7t [place] [address] Care Team Providers Care Renewable Energy Trader Name Role Phone Delilah Laboy DANIEL Primary Care Provider [phone] Encounter Details Date Type Department Care Team (Late st Contact Info) Description 12/10/2022 Orders Only [facility] MEDICINE [address] [place] [address] Michelle Espinosa LPN Social History Tobacco Use [...] Description 12/26/2024 3:00 PM EDT Office Visit [facility] ADULT DENTAL [address] [place] [address] Marianna Carney DDS [address] [place], [place] [phone] 12/27/2024 9:30 AM EDT Office Visit [facility] MEDICINE [address] [place] [address] Delilah Laboy ANP [address] [place] [address] 05/23/2025 3:00 PM EDT Office Visit [facility] ADULT DENTAL [address] [place] [address] Saskia Paredes documented as of this encounter Visit Diagnoses Not on filedocumented in this encounter Care Teams Renewable Energy Trader Relationship Specialty Start Date End Date Delilah Laboy ANP [address] [place] [address] PCP - General Family Medicine 09/19/20 documented as of this encounter
--- OUTSIDE RECORDS SUMMARY | 2024-11-19 11:08 | XMS_ITS | Encounter Summary ---
Author Organization [employer] Address [address] [facility] 7t [place] [address] Care Team Providers Care Career Developer Name Role Phone Delilah Laboy Primary Care Provider [phone] Encounter Details Date Type Department Care Team ([facility] st Contact Info) Description 07/06/2023 Abstract [facility] MEDICINE [address] [place], [place] [phone] Delilah Laboy ANP [address] [place], [place] [phone] Social History Tobacco Use Types Packs/Day Years [...] Description 12/26/2024 3:00 PM EDT Office Visit [facility] ADULT DENTAL [address] [place] [address] Marianna Carney, DDS [address] [place] [address] 12/27/2024 9:30 AM EDT Office Visit [facility] MEDICINE [address] [place] [address] Delilah Laboy ANP [address] [place] [address] 05/23/2025 3:00 PM EDT Office Visit [facility] ADULT DENTAL [address] [place] [address] Saskia Paredes documented as of this encounter Visit Diagnoses Not on filedocumented in this encounter Care Teams Career Developer Relationship Specialty Start Date End Date Delilah Laboy ANP [address] [place] [phone] PCP - General Family Medicine 09/19/20 documented as of this encounter
--- OUTSIDE RECORDS SUMMARY | 2024-11-19 11:08 | XMS_ITS | Encounter Summary ---
Author Organization [employer] Address [address] [facility] 7t [place] [address] Care Team Providers Care Head Of Conservation Name Role Phone Benoit Delilah SANCHEZ Primary Care Provider [phone] Reason for Visit * Reason Comments Routine Cleaning Dental Exam Encounter Details Date Type Department Care Team ([facility] st Contact Info) Description 11/19/2024 8:00 AM EDT Office Visit [facility] ADULT DENTAL [address] [place] [address] Saskia Paredes Social History Tobacco Use Types Packs/Day Years [...] AM EDT documented as of this encounter Last Filed Vital Signs Vital Sign Reading Time Taken Comments Blood Pressure 144/86 11/19/2024 8:10 AM EDT Pulse - - Temperature - - Respiratory Rate - - Oxygen Saturation - - Inhaled Oxygen Concentration - - Weight - - Height - - Body Mass Index - - documented in this encounter Plan of Treatment Upcoming Encounters Date Type Department Care Team (Late st Contact Info) Description 12/26/2024 3:00 PM EDT Office Visit [facility] ADULT DENTAL [address] [place] [address] Marianna Carney, DDS [address] [place] [address] 12/27/2024 9:30 AM EDT Office Visit [facility] MEDICINE [address] [place] [address] Delilah Laboy ANP [address] [place] [address] 05/23/2025 3:00 PM EDT Office Visit [facility] ADULT DENTAL [address] [place] [address] Saskia Paredes Scheduled Orders Name Type Priority Associated Diagnoses Orde r Schedule 19 DO 19 DO RESIN-BASED COMPOSITE - 2 SURF, POSTERIOR Dental Routine [address] [place] 11/19/2024 21 MBB(V) 21 MBB(V) RESIN-BASED COMPOSITE - 2 SURF, POSTERIOR Dental Routine 1 Occurrences starting 11/19/2024 PROPHYLAXIS - ADULT Dental Routine 1 Occ urrences starting 11/19/2024 documented as of this encounter Visit Diagnoses Not on filedocumented in this encounter Additional Health Concerns Assessment Noted Time PHQ-9 Depression Total Score: 0 12/22/19 24 9:33 AM EDT documented as of this encounter Care Teams Head Of Conservation Relationship Specialty Start Date End Date Delilah Laboy ANP [address] [place] [address] PCP - General Family Medicine 09/19/20 documented as of this encounter
--- OUTSIDE RECORDS SUMMARY | 2024-11-19 11:08 | XMS_ITS | Encounter Summary ---
Author Organization [employer] Address [address] [facility] 7t [place] [address] Care Team Providers Care Fuel Technician Name Role Phone Delilah Laboy Primary Care Provider [phone] Reason for Visit * Reason Comments Med Refill Encounter Details Date Type Department Care Team ([facility] st Contact Info) Description 12/22/2023 Refill [facility] MEDICINE [address] [place], [place] [phone] Delilah Laboy ANP [address] [place] [address] Hyperlipidemia associated with type 2 diabetes mellitus (CMS/HCC) ([facility]/HCC) Social History Tobacco Use Types Packs/Day [...] Description 12/26/2024 3:00 PM EDT Office Visit [facility] ADULT DENTAL [address] [place] [address] Marianna Carney DDS [address] [place] [address] 12/27/2024 9:30 AM EDT Office Visit [facility] MEDICINE [address] [place] [address] Delilah Laboy ANP [address] [place] [address] 05/23/2025 3:00 PM EDT Office Visit [facility] ADULT DENTAL [address] [place] [address] Saskia Paredes documented as of this encounter Visit Diagnoses Diagnosis Hyperlipidemia associated with type 2 diabetes mellitus (CMS/HCC) documented in this encounter Additional Health Concerns Assessment Noted Time PHQ-9 Depression Total Score: 0 12/22/19 24 9:33 AM EDT documented as of this encounter Care Teams Fuel Technician Relationship Specialty Start Date End Date Delilah Laboy ANP [address] [place] [phone] PCP - General Family Medicine 09/19/20 documented as of this encounter
--- OUTSIDE RECORDS SUMMARY | 2024-11-19 11:08 | XMS_ITS | Encounter Summary ---
Author Organization [facility] Address [address] [facility] 7t [place] [address] Care Team Providers Care Automatic Head Sawyer Name Role Phone Delilah Laboy Primary Care Provider [phone] Reason for Visit * Reason Comments Med Refill Encounter Details Date Type Department Care Team (Late Contact Info) Description 08/13/2022 Refill [facility] [address] [place] [address] Delilah Laboy ANP [address] [place] [address] Type 2 diabetes mellitus without complication, without long-term current use of insulin ([facility]) (Primary Dx) Social History Tobacco Use Types [...] Upcoming Encounters Date Type Department Care Team ([facility] Contact Info) Description 12/26/2024 3:00 PM EDT Office Visit [facility] ADULT DENTAL [address] [place] [address] Marianna Carney, PAULINES [address] [place] [address] 12/27/2024 9:30 AM EDT Office Visit [facility] [address] [place] [address] Delilah Laboy ANP [address] [place] [address] 05/23/2025 3:00 PM EDT Office Visit [facility] ADULT DENTAL [address] [place] [address] Saskia Paredes documented as of this encounter Visit Diagnoses Diagnosis Type 2 diabetes mellitus without complication, without long-term current use of insulin ([facility])- Primary documented in this encounter Care Teams Automatic Head Sawyer Relationship Specialty Start Date End Date Delilah Laboy ANP [address] [place] [address] PCP - General Family Medicine 09/19/20 documented as of this encounter
--- OUTSIDE RECORDS SUMMARY | 2024-11-19 11:08 | XMS_ITS | Encounter Summary ---
Author Organization [employer] Address [address] [facility] [address]t [place] [address] Care Team Providers Care Braddisher Name Role Phone Delilah Laboy Primary Care Provider [phone] Encounter Details Date Type Department Care Team ([facility] st Contact Info) Description 07/06/2023 Abstract [facility] MEDICINE [address] [place], [place] [phone] Delilah Laboy ANP [address] [place], [place] [phone] Social History Tobacco Use Types Packs/Day Years [...] Description 12/26/2024 3:00 PM EDT Office Visit [facility] ADULT DENTAL [address] [place] [address] Marianna Carney, DDS [address] [place] [address] 12/27/2024 9:30 AM EDT Office Visit [facility] MEDICINE [address] [place] [address] Delilah Laboy ANP [address] [place] [address] 05/23/2025 3:00 PM EDT Office Visit [facility] ADULT DENTAL [address] [place] [address] Saskia Paredes documented as of this encounter Visit Diagnoses Not on filedocumented in this encounter Care Teams Braddisher Relationship Specialty Start Date End Date Delilah Laboy ANP [address] [place] [phone] PCP - General Family Medicine 09/19/20 documented as of this encounter
--- OUTSIDE RECORDS SUMMARY | 2024-11-19 11:08 | XMS_ITS | Encounter Summary ---
Author Organization [employer] [facility] Address [address] [facility] 7t [place] [address] Care Team Providers Care Hvac/R Instructor Name Role Phone Delilah Laboy Primary Care Provider Encounter Details Date Type Department Care Team (Late st Contact Info) Description 08/13/2022 Orders Only [facility] [address] [place] [address] Delilah Laboy ANP [address] [place] [address] Social History Tobacco Use Types Packs/Day Years [...] 3:00 PM EDT Office Visit [facility] ADULT DENTAL [address] [place] [address] EllisonMarianna Cross DDS [address] [place] [address] 12/27/2024 9:30 AM EDT Office Visit [facility] MEDICINE [address] [place] [phone] Delilah Laboy ANP [address] [place], [place] [phone] 05/23/2025 3:00 PM EDT Office Visit [facility] ADULT DENTAL [address] [place] [phone] Saskia Paredes documented as of this encounter Visit Diagnoses Not on filedocumented in this encounter Care Teams Hvac/R Instructor Relationship Specialty Start Date End Date Delilah Laboy ANP [address] [place] [phone] PCP - General Family Medicine 09/19/20 documented as of this encounter
--- OUTSIDE RECORDS SUMMARY | 2024-11-19 11:09 | XMS_ITS | Encounter Summary ---
Author Organization [facility] Address [address] [facility] 7t [place] [address] Care Team Providers Care Community Resource Consultant Name Role Phone Delilah Laboy Primary Care Provider [phone] Encounter Details Date Type Department Care Team (Latest Contact Info) Description 10/12/2021 Abstract [facility] CONVERSIONS Dental, Provider, DDS Social History Tobacco [...] 3:00 PM EDT Office Visit [facility] ADULT DENTAL [address] [place] [address] Ellison-BowmanMarianna meyer, DDS [address] [place] [address] 12/27/2024 9:30 AM EDT Office Visit [facility] MEDICINE [address] [place] [address] Delilah Laboy ANP [address] [place] [address] 05/23/2025 3:00 PM EDT Office Visit [facility] ADULT DENTAL [address] [place] [address] Paredes, Saskia documented as of this encounter Visit Diagnoses Not on filedocumented in this encounter Care Teams Community Resource Consultant Relationship Specialty Start Date End Date Delilah Laboy ANP [address] [place] [address] PCP - General Family Medicine 09/19/20 documented as of this encounter
--- OUTSIDE RECORDS SUMMARY | 2024-11-19 11:09 | XMS_ITS | Encounter Summary ---
Author Organization [employer] [facility] Address [address] [facility] 7t [place] [address] Care Team Providers Care Electric Arc Furnace Operator Name Role Phone Delilah Laboy Primary Care Provider [phone] Encounter Details Date Type Department Care Team (Latest Contact Info) Description 05/09/2019 Abstract [facility] CONVERSIONS Dental, Provider, DDS Social History [...] Description 12/26/2024 3:00 PM EDT Office Visit [facility] ADULT DENTAL [address] [place] [address] Marianna Carney, DDS [address] [place] [address] 12/27/2024 9:30 AM EDT Office Visit [facility] MEDICINE [address] [place] [address] Delilah Laboy ANP [address] [place] [address] 05/23/2025 3:00 PM EDT Office Visit [facility] ADULT DENTAL [address] [place] [address] Saskia Paredes documented as of this encounter Visit Diagnoses Not on filedocumented in this encounter Care Teams Electric Arc Furnace Operator Relationship Specialty Start Date End Date Delilah Laboy ANP [address] [place] [address] PCP - General Family Medicine 09/19/20 documented as of this encounter
[2024-11-19 11:59] LABS: Creatinine Urine 224.44 mg/dL; Microalbum/Creatinine Ratio Ur 3.5 ug/mg cr (<30)
[2024-11-19 12:05] LABS: Prostate Specific Antigen 2.02 ng/mL (<0.05-4.0); Vitamin B12 484 pg/mL (200-900)
[2024-11-19 12:53] LABS: Alanine Aminotransferase 27 U/L (0-40); Albumin Level 4.3 g/dL (3.5-5.0); Anion Gap 13 (12-20); Aspartate Amino Transferase 21 U/L (5-37); Blood Urea Nitrogen 11 mg/dL (9-16); Calcium 9.8 mg/dL (8.4-10.2); Carbon Dioxide 28 mmol/L (22-29); Chloride 104 mmol/L (96-108); Cholesterol 169 mg/dL (<200); Estimated Glomerular Filt Rate > 60; Glucose Random 252 mg/dL (60-115); HDL Cholesterol 56 mg/dL (>40); LDL Cholesterol Calculated 92 mg/dL (<100); Potassium 4.4 mmol/L (3.3-5.1); Sodium 141 mmol/L (135-145); Total Protein 7.1 g/dL (6.5-8.0); Triglycerides 107 mg/dL (<150)
[2024-11-19 12:55] LABS: Insulin 5 uU/mL (2-29)
[2024-11-19 13:16] LABS: Alkaline Phosphatase 81 U/L (39-117)
[2024-11-20 05:02] LABS: C Peptide 2.13 ng/mL (0.80-3.85)
[2024-11-22 21:43] LABS: Glutamic acid decarboxylase Ab <5 IU/mL (<5)
[2024-11-27 02:53] LABS: Insulin Auto Antibody <0.4 U/mL (<0.4)
[2024-11-28 13:18] LABS: Insulinoma associated 2 aatb <5.4 U/mL (<5.4)
== END 2024-11-19 09:42 | disposition home or self-care (01) ==
LOC: HO.HHCL 09:41
PROVIDERS: Visit Provider Nurse Practitioner Primary Care
DX: E11.69 Type 2 diabetes mellitus with other specified complication (principal); E78.5 Hyperlipidemia, unspecified; Z12.5 Encounter for screening for malignant neoplasm of prostate
CPT/HCPCS: 36415; 80053; 80061; 82043; 82570; 82607; 83525; 84153; 84681; 86337; 86341

== ENCOUNTER 2025-07-26 14:53 | Outpatient (REF) | payer MEDICAID, SELFPAY ==
[2025-07-26 16:05] LABS: MANUAL DIFF FLAG NO
[2025-07-26 16:13] LABS: Hematocrit 44.3 % (42.0-52.0); Hemoglobin 15.2 g/dl (14.0-18.0); Imm Gran Abs Auto 0.02 X10*3/uL (0.00-0.03); Imm Gran Pct Auto 0.3 % (0.0-0.4); Lymphocytes Absolute Auto 1.7 X10*3/uL (1.2-4.9); Mean Corpuscular HGB Conc 34.3 g/dl (31.0-36.0); Mean Corpuscular Hemoglobin 29.1 pg (27.0-33.0); Mean Corpuscular Volume 84.7 fL (80.0-98.0); NRBC Abs Auto 0.000 X10*3/uL (0.0-0.012); NRBC Pct Auto 0.0 /100WBC (0.0-0.2); Platelet Count 213 X10*3/uL (160-400); Red Blood Count 5.23 X10*6/uL (4.60-5.80); White Blood Count 6.1 X10*3/uL (4.8-10.8)
[2025-07-26 16:31] LABS: Iron 57 mcg/dL (45-160); Percent Iron Saturation 21 % (15-50); Total Iron Binding Capacity 274 mcg/dL (228-428); Unsaturated Iron Binding 217 ug/dL
== END 2025-07-26 14:54 | disposition home or self-care (01) ==
LOC: HO.HHCL 14:53
PROVIDERS: PCP Nurse Practitioner Primary Care; Visit Provider Nurse Practitioner Primary Care
DX: E11.69 Type 2 diabetes mellitus with other specified complication (principal); E78.5 Hyperlipidemia, unspecified
CPT/HCPCS: 36415; 82985; 83020; 83540; 85014; 85018; 85025; 85041